=== PATIENT | male | born 1955 | race Caucasian/White ===

== ENCOUNTER → 2020-01-30 11:09 | Outpatient (BNVA) | payer MEDICARE, OTHER, SELFPAY | PROVIDERS: PCP Registered Nurse; Visit Provider Urology | DX: N40.1 Benign prostatic hyperplasia with lower urinary tract symptoms (principal); N13.8 Other obstructive and reflux uropathy; R39.14 Feeling of incomplete bladder emptying | CPT/HCPCS: 51798; 81002; 99212 ==

== ENCOUNTER → 2020-03-11 11:03 | Outpatient (BNVA) | payer MEDICARE, OTHER, SELFPAY | PROVIDERS: PCP Registered Nurse; Visit Provider Internal Medicine Cardiovascular Disease | DX: I48.0 Paroxysmal atrial fibrillation (principal) | CPT/HCPCS: 93005; 99212 ==

== ENCOUNTER 2020-06-03 12:39 | Outpatient (REF) | payer MEDICARE, OTHER, SELFPAY ==
--- NOTE | ~2020-06-03 | MR_ITS ---
MR CERVICAL SPINE WITHOUT CONTRAST CLINICAL INFORMATION: Right-sided cervical radiculopathy. COMPARISON: None available. TECHNIQUE: MRI of the cervical spine was obtained using routine sequences without contrast. FINDINGS: Cervical alignment is normal. The vertebral body heights are maintained. There is mild disc volume loss at C5-C6. There Modic type I endplate signal changes at C5-C6. There is no additional bone marrow edema. There are no acute fractures. The partially imaged intracranial compartment is unremarkable. The cervical arterial flow voids are maintained. There are no significant soft tissue findings. There is no cord signal abnormality. C2-C3: Disc osteophyte mildly narrows the central canal. Uncovertebral joint spurring and facet arthropathy result in severe right and moderate left foraminal stenosis. C3-C4: Disc osteophyte mildly narrows the central canal. Uncovertebral joint spurring and facet arthropathy result in mild bilateral foraminal encroachment. C4-C5: Disc osteophyte mildly narrows the central canal. Advanced uncovertebral joint hypertrophy and hypertrophic facet arthropathy result in severe right and moderate left foraminal stenosis. C5-C6: Disc osteophyte and ligamentum flavum thickening result in severe central canal stenosis and mass effect on the cord. No definite cord signal abnormality accounting for artifact. Advanced uncovertebral joint hypertrophy and hypertrophic facet arthropathy result in severe bilateral foraminal stenosis. C6-C7: Uncovertebral joint spurring and facet arthropathy result in mild right-sided foraminal encroachment. No central canal and no left foraminal stenosis. C7-T1: Disc contour is normal. No central canal stenosis. No foraminal stenosis. MR/MR cervical spine wo con IMPRESSION: - At C5-C6, advanced spondylitic changes result in severe central canal stenosis, mass effect on the cervical spinal cord, and severe bilateral foraminal stenosis. - Spondylitic changes also result in severe right and moderate left C2-C3 as well as severe right and moderate left C4-C5 foraminal stenosis. Additional degenerative findings as discussed above.
== END 2020-06-03 12:40 | disposition home or self-care (01) ==
LOC: HO.MRI 12:39
PROVIDERS: Visit Provider Internal Medicine
DX: M54.12 Radiculopathy, cervical region (principal)
CPT/HCPCS: 72141

== ENCOUNTER 2020-12-03 10:01 | Emergency (ER) | payer MEDICARE, OTHER, SELFPAY ==
--- NOTE | ~2020-12-03 | XR_ITS ---
EXAMINATION: XR KNEE, RIGHT CLINICAL INFORMATION: Pain right knee COMPARISON: None TECHNIQUE: 5 views of the right knee. FINDINGS: There is no fracture, dislocation, destructive process. Bony mineralization appears normal. There is no focal joint narrowing or erosive change or chondrocalcinosis. Spurring at the quadriceps insertion patella is present. There is borderline thickening suprapatellar bursa suggesting trace effusion. Hoffa's fat pad and the deep infrapatellar recess appears normal. XR/XR knee RT 3V IMPRESSION: 1. Trace effusion. No joint narrowing or erosive change. 2. Spurring at quadriceps insertion patella.
[2020-12-03 10:46] VITALS: PULSE 48; RESP 16; TEMP 36.2; O2SAT 99; BMI 25.8
[2020-12-03 10:57] VITALS: BP 135/78
--- NOTE | 2020-12-03 11:41 | ED.LOWEXIN ---
HPI - Extremity Injury (Lower) General Chief Complaint: Extremity Injury, Lower Stated Complaint: rt knee injury Time Seen by Provider: 12/03/20 11:41 Source: patient and family Mode of arrival: ambulatory Limitations: no limitations History of Present Illness HPI Narrative: 65-year-old male who is not on any blood thinners presenting to the ED with complaints of right knee pain after he had a mechanical fall where he tripped and fell while he was outside in the d last night. Denies head injury or loss of consciousness. Denies any other injuries complaints or concerns at this time. MD complaint: knee injury and fall Onset (ago): day(s) (Last night) Type of Injury: blunt Place: street/outdoors Severity: moderate Relieving factors: nothing Exacerbating factors: palpation and other (Or flexion) Context: fall Associated symptoms: swelling and ambulatory Other symptoms: none Treatments prior to arrival: other (Has tried [id number] medication no symptomatic relief) Related Data Home Medications Medication Instructions Recorded Confirmed atorvastatin 10 mg tablet 10 mg PO DAILY 01/30/20 03/11/20 bisacodyl 5 mg tablet,delayed 10 mg PO DIRECTED 01/30/20 03/11/20 release cholecalciferol (vitamin D3) 25 25 mcg PO DAILY 01/30/20 03/11/20 mcg (1,000 unit) capsule Previous Rx's Medication Instructions Recorded acetaminophen 500 mg tablet 500 mg PO Q6H PRN #14 tab 12/03/20 (Tylenol Extra Strength) ibuprofen 800 mg tablet 800 mg PO Q8H PRN #14 tab 12/03/20 oxycodone 5 mg tablet 5 mg PO Q6H PRN #14 tab 12/03/20 Allergies Allergy/AdvReac Type Severity Reaction Status Date / Time No Known Allergies Allergy Unverified 10/30/19 14:39 [No Known Allergies*] Review of Systems Review of Systems: Constitutional : No Weight loss, No Fever, No Chills, No Night Sweats, No Fatigue, No Malaise ENT/Mouth : No Hearing loss, No Ear Pain, No Nasal Congestion, No Sinus Pain, No Hoarseness, No sore throat, No Rhinorrhea, No Swallowing Difficulty Eyes: No Eye Pain, No Swelling, No Redness, No Foreign Body, No Discharge, No Vision Changes Cardiovascular : No Chest Pain, No SOB, No Dyspnea on Exertion, No Orthopnea, No Edema, No Palpitations Respiratory : No Cough, No Sputum, No Wheezing, No Smoke Exposure, No Dyspnea Gastrointestinal : No Nausea, No Vomiting, No Diarrhea, No Constipation, No abdominal Pain, No Hematochezia, No Melena Genitourinary : no irregular bleeding, No Dysuria, No Urinary Frequency, No Hematuria, No Urinary Incontinence, No Urgency, No Flank Pain, No Urinary Flow Changes, No Hesitancy Musculoskeletal : Positive right knee joint pain/swelling, Skin : No Skin Lesions, No rash Neuro : No Weakness, No Numbness, No Paresthesias, No Loss of Consciousness, No Dizziness, No Headache Psych : No Anxiety/Panic, No Depression, No SI/HI/AH/VH, No Social Issues, Heme/Lymph: No Bruising, No Bleeding,No Lymphadenopathy Endocrine : No Polyuria, No Polydipsia, No Temperature Intolerance Yes all other systems are reviewed and are negative [facility] Past Medical History Attestation statement: The following information was validated with the patient. Medical History Paroxysmal atrial fibrillation Surgical History History of hip surgery History of radiofrequency ablation (RFA) procedure for cardiac arrhythmia History of tonsillectomy and adenoidectomy Hx of hemorrhoidectomy Hx of hernia repair Hx of vasectomy Family History Family History Father Cancer Mother Cancer Social History Social History Advance Directives: No Advance Directives Information Provided: Yes Physical Exam Vital Signs: Vital Signs: Last Vital Signs Temp 97.2 F 12/03/20 10:46 Pulse 48 L 12/03/20 10:46 Resp 16 12/03/20 10:46 BP 135/78 12/03/20 10:57 Pulse Ox 99 12/03/20 10:46 Body Mass Index 25.8 vital signs have been reviewed as normal and appeared to be correct. Blood pressure normal Heart rate normal. Respiration rate normal. Temperature normal. Oxygen saturation normal. Appearance: Alert. Oriented X3. No acute distress. Head: Normal external exam. Normocephalic. Atraumatic. Eyes: PERRLA. EOMI. Conjunctiva and sclera normal. Eyelids normal. ENT: Pharynx normal. Uvula midline. Moist mucous membranes. Neck: Normal inspection. Neck supple. FROM. CVS: Normal heart rate and rhythm. Respiratory: No respiratory distress. Painless inspiration. Skin: Skin warm and dry. Normal skin color. Normal skin turgor. No rashes/lesions/lacerations noted. Extremities:? Patient mild soft tissue swelling to right knee and tenderness to the posterior aspect of the knee/lateral aspect and medial aspect.? No obvious ligamentous or tendon injury is noted on my exam.? Although patient has moderate pain when I perform flexion of the knee.? He has normal extension of the knee.? all other Extremities exhibit normal range of motion and nontender. Neuro: Oriented X 3. No motor deficit. No sensory deficit. Reflexes normal. Normal steady gait. No focal neuro deficits noted. Vascular: + radial pulses/+ 2 distal pedal pulses/+2 dorsalis pedis b/l. Normal cap refill. No cyanosis noted to upper extremity nails and lower extremity toes nails. Course Course Course Narrative: 65-year-old with a mechanical fall with left knee pain x-ray negative for fractures reveals small joint effusion and chronic changes. Therefore I explained to him that he will need to be further evaluated and treated with Orthopedics and he can call today to make a follow-up appointment within the next 2 weeks if symptoms persist and to return if any new or worsening symptoms. Patient understands agrees with this plan. MDM - Extremity Injury (Lower) Medical Records Attestation: I reviewed the patient's medical records. Imaging Data Right knee x-ray: Attestation: I personally reviewed and interpreted this imaging study as follows: Radiologist's impression: FINDINGS: There is no fracture, dislocation, destructive process. Bony mineralization appears normal. There is no focal joint narrowing or erosive change or chondrocalcinosis. Spurring at the quadriceps insertion patella is present. There is borderline thickening suprapatellar bursa suggesting trace effusion. Hoffa's fat pad and the deep infrapatellar recess appears normal.? XR/XR knee RT 3V IMPRESSION: ? 1. Trace effusion. No joint narrowing or erosive change. 2. Spurring at quadriceps insertion patella. Discharge Plan Discharge Clinical Impression: Fall, Right knee sprain, Effusion of knee joint right Patient Disposition: Home, Self-Care Instructions: Knee Sprain (ED), How to Use an Elastic Bandage (ED), Swollen Knee Joint (ED), Fall Prevention (ED) Prescriptions: New acetaminophen [Tylenol Extra Strength] 500 mg tablet 500 mg PO Q6H PRN (Reason: pain) Qty: 14 RF: 0 ibuprofen 800 mg tablet 800 mg PO Q8H PRN (Reason: pain) Qty: 14 RF: 0 oxycodone 5 mg tablet 5 mg PO Q6H PRN (Reason: pain) Qty: 14 RF: 0 No Action atorvastatin 10 mg tablet 10 mg PO DAILY RF: 0 bisacodyl 5 mg tablet,delayed release (DR/EC) 10 mg PO DIRECTED RF: 0 cholecalciferol (vitamin D3) 25 mcg (1,000 unit) capsule 25 mcg PO DAILY RF: 0 Referrals: Danya Sorto NP [Primary Care Provider] - 2 days Antony Parsons MD [Physician] - 2 days (Call today to make a follow-up appointment within the next 2 weeks) Print Language: Estonian
== END 2020-12-03 11:56 | disposition home or self-care (01) ==
PROVIDERS: Emergency Provider Emergency Medicine; PCP Registered Nurse
DX: S83.91XA Sprain of unspecified site of right knee, initial encounter (principal); M25.461 Effusion, right knee; W01.0XXA Fall on same level from slipping, tripping and stumbling without subsequent striking against object, initial encounter; Y93.9 Activity, unspecified; Y92.9 Unspecified place or not applicable; Y99.9 Unspecified external cause status; Z79.899 Other long term (current) drug therapy
CPT/HCPCS: 73562; 99283

== ENCOUNTER 2021-01-25 10:48 | Outpatient (REF) | payer MEDICARE, OTHER, SELFPAY ==
[2021-01-25 12:59] LABS: Prostate Specific Antigen 0.72 ng/mL (<0.05-4.0)
== END 2021-01-25 10:49 | disposition home or self-care (01) ==
LOC: HO.LAB 10:48
PROVIDERS: PCP Registered Nurse; Visit Provider Urology
DX: Z12.5 Encounter for screening for malignant neoplasm of prostate (principal); N40.1 Benign prostatic hyperplasia with lower urinary tract symptoms; N13.8 Other obstructive and reflux uropathy
CPT/HCPCS: 36415; 84153

== ENCOUNTER → 2021-02-01 10:33 | Outpatient (BNVA) | payer MEDICARE, OTHER, SELFPAY | PROVIDERS: PCP Registered Nurse; Visit Provider Urology | DX: N40.1 Benign prostatic hyperplasia with lower urinary tract symptoms (principal); N13.8 Other obstructive and reflux uropathy | CPT/HCPCS: Q3014 ==

== ENCOUNTER → 2021-02-18 12:44 | Outpatient (REF) | payer MEDICARE, SELFPAY ==
--- NOTE | 2021-02-18 12:47 | CA_ITS ---
Transthoracic Echocardiogram Patient (Last, First, Middle): Kristopher Basurto G Gender: Male Date of : 1955 Age: 65 Procedure Date: 02/18/2021 Procedure Type: Transthoracic Echocardiogram Location: OP Height: 177.8 cm Weight: 79.38 kg BSA: 1.97 m2 Heart Rate: bpm BP: 130 / 78 mmHg Entomology Teacher: SANTOS Referring MD: Robson Boston MD Panel Edge Sealer: Robson Boston MD Symptoms: I48.0 - Paroxysmal atrial fibrillation Study Quality: Fair ECG Rhythm: Sinus Conclusions: - 1. Normal LV systolic and diastolic function 2. Mildly dilated left atrium 3. Normal RV systolic pressure 4. Mildly dilated ascending aorta 5. No pericardial effusion Findings Left Ventricle Normal left ventricular size, thickness, and systolic function. The visually estimated ejection fraction is between 60-65%. Spectral Doppler is indicative of a normal filling pattern. Right Ventricle Normal right ventricular cavity size and systolic function. Atria The left atrium is mildly dilated. There is no evidence of interatrial shunt. The right atrium is normal in size. Aortic Valve Normal aortic valve structure and function. There is no aortic valve stenosis. There is no aortic valve regurgitation. Mitral Valve Normal mitral valve structure and function. There is trace mitral valve regurgitation. There is no mitral valve stenosis. Pulmonic Valve The pulmonic valve is likely normal. Tricuspid Valve Normal tricuspid valve structure. There is mild tricuspid valve regurgitation. The right ventricular systolic pressure is normal. The right ventricular systolic pressure is 28 mmHg. Normal right atrial pressure. There is no evidence of pulmonary hypertension. Great Vessels The pulmonary artery was not well visualized. There is mild dilatation of the ascending aorta measuring 3.80 cm. Venous The inferior vena cava is normal in size and collapses greater than 50% with inspiration. Pericardium/Pleural There is no evidence of pericardial effusion. Prior Study Comparison Changes noted compared to prior study dated: 12/26/2018. Ascending aorta is mildly dilated at 3.8 cm Measurements 2D Linear Measurements IVSd: 1.02 0.6-0.9/0.6-1.0 cm LVIDd: 4.29 3.9-5.3/4.2-5.9 cm LVIDd Index: 2.18 2.4-3.2/2.2-3.1 cm/m2 LVIDs: 2.32 2.0-3.6 cm LVPWd: 1.05 0.7-1.1 cm Ao Root: 4.00 2.1-3.5 cm LA Diam: 3.90 2.7-3.8/3.0-4.0 cm LAIDs Index: 1.98 1.5-2.3 cm/m2 LV Mass: 185.44 67-162/88-224 g LV Mass Index: 94.13 43-95/49-115 g/m2 LVOT Diam: 2.20 3.0+(-)1.3 cm 2D Systolic Function EF 4C: 66.30 >55% EF 2C: 69.20 >55% EF BiP: 68.00 >55% Mitral Valve MV Pk E: 0.71 MV PK A: 0.43 MV Decel Time: 276.00 E/A: 1.70 E'Lateral: 11.30 E'Medial: 8.81 E/E' Med: 8.10 E/E' Lat: 6.30 PHT: 81.00 MVA PHT: 2.72 Decel Imperial: 2.57 Aortic Valve AoV Pk Hossein: 1.21 AoV Mn Hossein: 0.93 AoV VTI: 0.28 AoV Pk Grad: 6.00 Aov Mn Grad: 4.00 CAROLINA Cont.VTI: 2.78 LVOT LVOT Pk Hossein: 0.94 LVOT Mn Hossein: 0.67 LVOT VTI: 0.20 LVOT Pk Grad: 4.00 LVOT Mn Grad: 2.00 LVOT Diam: 2.20 LVOT Area: 3.80 Diastolic Function MV Pk E: 0.71 MV Pk A: 0.43 E/A: 1.70 E'Medial: 8.81 E/E' Med: 8.10 E' Laterial: 11.30 E/E' Lat: 6.30 Right Ventricle TAPSE (mm): 23.20 TVS' Hossein: 15.70 Tricuspid Valve TR Pk Hossein: 2.50 TR Pk Grad: 25.00 RA Press: 3.00 RVSP: 28.00 Great Vessels Aorta Ao Root-2D: 4.00 2.0-3.7 cm Ao Asc: 3.80 2.1-3.4 cm Ao Arch: 3.00 Updated in Other Vendor System with Status of Final Robson Boston MD electronically signed on 02/18/2021 2:40:12 PM with status of Final
== END ==
LOC: HO.CARD 12:44
PROVIDERS: Visit Provider Internal Medicine Cardiovascular Disease
DX: I48.0 Paroxysmal atrial fibrillation (principal)
CPT/HCPCS: 93306

== ENCOUNTER → 2021-02-28 13:49 | Outpatient (BNVA) | payer MEDICARE, SELFPAY | PROVIDERS: PCP Registered Nurse; Visit Provider Internal Medicine Cardiovascular Disease | DX: I48.0 Paroxysmal atrial fibrillation (principal) | CPT/HCPCS: 93005; 99212 ==

== ENCOUNTER → 2022-03-02 12:50 | Outpatient (BNVA) | payer MEDICARE, SELFPAY | PROVIDERS: PCP Registered Nurse; Referring Provider Registered Nurse; Visit Provider Internal Medicine Cardiovascular Disease | DX: I48.0 Paroxysmal atrial fibrillation (principal); R00.1 Bradycardia, unspecified; I44.0 Atrioventricular block, first degree; I44.4 Left anterior fascicular block | CPT/HCPCS: 93005; 99212 ==

== ENCOUNTER → 2022-03-09 13:25 | Outpatient (BNVA) | payer OTHER, SELFPAY | PROVIDERS: PCP Registered Nurse; Visit Provider Urology | DX: N40.1 Benign prostatic hyperplasia with lower urinary tract symptoms (principal); N13.8 Other obstructive and reflux uropathy | CPT/HCPCS: 51798; 99212 ==

== ENCOUNTER → 2023-02-26 08:40 | Outpatient (REF) | payer MEDICARE, SELFPAY ==
--- NOTE | 2023-02-26 08:42 | CA_ITS ---
Transthoracic Echocardiogram Patient (Last, First, Middle): Kristopher Basurto G Gender: Male Date of : 1955 Age: 67 Procedure Date: 02/26/2023 Procedure Type: Transthoracic Echocardiogram Location: OP Height: 175.26 cm Weight: 79.38 kg BSA: 1.95 m2 Heart Rate: 53 bpm BP: 130 / 70 mmHg Lead Mechanical Engineer: JOVANNI Referring MD: Robson Boston MD Symptoms: I48.0 - Paroxysmal atrial fibrillation Study Quality: Adequate ECG Rhythm: Bradycardia Conclusions: - The left ventricular systolic function is normal. The calculated ejection fraction is 60% by biplane method. - Severely increased right ventricular cavity size. There is normal right ventricular systolic function. (RV basal diameter 5.7cm). - The right atrium is severely dilated. - No obvious valvular pathology seen on this study. - There is mild dilatation of the sinuses of Valsalva measuring 4.20 cm and mild dilatation of the ascending aorta measuring 3.80 cm. Findings Left Ventricle Normal left ventricular cavity size. There is mildly increased left ventricular wall thickness. The left ventricular systolic function is normal. The calculated ejection fraction is 60% by biplane method. There is no evidence of regional wall motion abnormalities. Diastolic function is normal for age. LV peak GLS -21.1%. Right Ventricle Severely increased right ventricular cavity size. There is normal right ventricular systolic function. (RV basal diameter 5.7cm). Atria The left atrium is mildly dilated. The right atrium is severely dilated. Aortic Valve There is a normal trileaflet aortic valve. There is mild calcification of the aortic valve. There is no aortic valve stenosis. There is no aortic valve regurgitation. Mitral Valve The mitral valve appears normal. There is trace mitral valve regurgitation. There is no mitral valve stenosis. Pulmonic Valve The pulmonic valve is likely normal. Tricuspid Valve There is mild tricuspid valve regurgitation. There is no evidence of pulmonary hypertension. Great Vessels There is mild dilatation of the sinuses of Valsalva measuring 4.20 cm and mild dilatation of the ascending aorta measuring 3.80 cm. Venous The inferior vena cava is normal in size and collapses greater than 50% with inspiration. Pericardium/Pleural There is no evidence of pericardial effusion. Prior Study Comparison Changes noted compared to prior study dated: 02/18/2021. see comments on RV/RA. Recommendations, Care & Conclusions No obvious valvular pathology seen on this study. Measurements 2D Linear Measurements IVSd: 1.01 0.6-0.9/0.6-1.0 cm LVIDd: 3.68 3.9-5.3/4.2-5.9 cm LVIDd Index: 1.89 2.4-3.2/2.2-3.1 cm/m2 LVIDs: 2.09 2.0-3.6 cm LVPWd: 1.12 0.7-1.1 cm LA Diam: 3.50 2.7-3.8/3.0-4.0 cm LAIDs Index: 1.79 1.5-2.3 cm/m2 LV Mass: 152.14 67-162/88-224 g LV Mass Index: 78.02 43-95/49-115 g/m2 LVOT Diam: 2.00 3.0+(-)1.3 cm 2D Systolic Function EF 4C: 61.50 >55% EF 2C: 57.40 >55% EF BiP: 59.70 >55% Mitral Valve MV Pk E: 0.62 MV PK A: 0.45 MV Decel Time: 235.00 E/A: 1.40 E'Lateral: 10.20 E'Medial: 7.83 E/E' Med: 7.90 E/E' Lat: 6.00 PHT: 69.00 MVA PHT: 3.19 Decel Anderson: 2.63 Aortic Valve AoV Pk Hossein: 1.19 AoV Mn Hossein: 0.84 AoV VTI: 0.27 AoV Pk Grad: 6.00 Aov Mn Grad: 3.00 CAROLINA Cont.VTI: 2.60 LVOT LVOT Pk Hossein: 1.04 LVOT Mn Hossein: 0.67 LVOT VTI: 0.22 LVOT Pk Grad: 4.00 LVOT Mn Grad: 2.00 LVOT Diam: 2.00 LVOT Area: 3.14 Diastolic Function MV Pk E: 0.62 MV Pk A: 0.45 E/A: 1.40 E'Medial: 7.83 E/E' Med: 7.90 E' Laterial: 10.20 E/E' Lat: 6.00 Right Ventricle TAPSE (mm): 25.80 TVS' Hossein: 12.30 Tricuspid Valve TR Pk Hossein: 2.32 TR Pk Grad: 22.00 RA Press: 3.00 RVSP: 25.00 Great Vessels Aorta Sinus of Valsalva: 4.20 2.0-3.5 cm Ao Asc: 3.80 2.1-3.4 cm Pulmonary Valve PV Pk Hossein: 0.77 Peak PV Grad: 2.00 Updated in Other Vendor System with Status of Final Peng Aviles MD electronically signed on 02/26/2023 10:16:57 AM with status of Final
== END ==
LOC: HO.CARD 08:40
PROVIDERS: PCP Internal Medicine; Visit Provider Internal Medicine Cardiovascular Disease
DX: I48.0 Paroxysmal atrial fibrillation (principal)
CPT/HCPCS: 93306; 93356

== ENCOUNTER → 2023-02-26 08:42 | Outpatient (BNV) | payer MEDICARE, SELFPAY | PROVIDERS: PCP Internal Medicine; Visit Provider Internal Medicine | DX: I48.0 Paroxysmal atrial fibrillation (principal); I36.1 Nonrheumatic tricuspid (valve) insufficiency | CPT/HCPCS: 93306 ==

== ENCOUNTER 2023-03-05 09:23 | Outpatient (AMB) | payer MEDICARE, SELFPAY ==
--- NOTE | 2023-03-05 09:27 | A.OFFVIS_ITS ---
Intake Vital Signs 03/05/23 09:28 Height 5 ft 9 in Weight 174 lb 2.643 oz BMI 25.7 BP 130/70 Blood Pressure Location Lt brachial Position Sitting Pulse 58 Intake Visit Reasons: 1 yr f/u after echo Intake Note: 1 yr f/up after echo/ pt its feeling fine. Family Literacy Coordinator Required: No Accompanied by: Self / Same As Patient Allergies No Known Allergies [No Known Allergies*] Allergy (Verified 02/01/21 10:34) Medication List - Last Reconciled 03/05/23 by Robson Boston MD atorvastatin 10 mg PO DAILY cholecalciferol (vitamin D3) 25 mcg PO DAILY HPI HPI Comments History of Present Illness Details Kristopher comes for follow-up. He has had no recurrent episodes of atrial fibrillation. Denies any prolonged palpitation irregular heartbeat or skipped heartbeats. He complains of intermittent episodes of precordial chest tightness that happens mostly at rest lasting for about 5 minutes. Symptoms are not related to exertion or if finds not much stress. Symptoms have happening about once a week. Have happening for the last few months. No neurologic issues. No heart failure symptoms. [facility] Medical History Paroxysmal atrial fibrillation Surgical History Hx of vasectomy Hx of hernia repair History of radiofrequency ablation (RFA) procedure for cardiac arrhythmia Hx of hemorrhoidectomy History of tonsillectomy and adenoidectomy History of hip surgery Family History Father Cancer Mother Cancer Social History Alcohol intake: current Alcohol intake frequency: 0-2 drinks per day Patient Tobacco Use Status: Never used Tobacco Substance Use Type: Marijuana Review of Systems Const Reports chills, Reports fatigue, Reports fever(s), Reports frequent falls, Reports weakness, Reports weight gain and Reports weight loss ENT Reports dizziness Card Reports chest pain, Reports leg edema, Reports lightheadedness, Reports palpitations, Reports dyspnea and Reports dyspnea on exertion Resp Reports cough, Reports dyspnea and Reports dyspnea on exertion GI Reports hematochezia Musc Reports abnormal gait, Reports muscle weakness, Reports numbness, Reports radiating pain into limb and Reports tingling Neuro Reports abnormal gait, Reports dizziness, Reports frequent falls, Reports numbness, Reports tingling and Reports weakness Endo Reports fatigue and Reports palpitations Physical Exam Vital Signs: Last Vital Signs Pulse 58 03/05/23 09:28 BP 130/70 03/05/23 09:28 BMI result Body Mass Index 25.7 Const General: cooperative, comfortable, awake and Physically active Nutritional Appearance: thin Orientation/consciousness: patient oriented x3 Limitations: no limitations Neck Neck: Yes trachea midline, Yes supple and Yes no JVD Resp Effort & Inspection: normal respiratory effort Auscultation: clear to auscultation bilaterally Cardio Jugular venous distension: no JVD Palpation: normal PMI Rate: regular rate Rhythm: regular rhythm Heart sounds: S1 normal heart sound present and S2 normal heart sound present GI Auscultation: normal bowel sounds Skin General skin exam: no rashes or lesions noted Neuro General: patient oriented x3 and no focal motor deficits Extrem General: Yes no clubbing, cyanosis or edema Psych Appearance: grossly normal Office Procedures EKG Details: EKG shows sinus bradycardia with first-degree AV block otherwise normal EKG [id number], Complete Assessment & Plan Assessment & Plan (1) Paroxysmal atrial fibrillation: Code(s): I48.0 - Paroxysmal atrial fibrillation Plan: Highly symptomatic paroxysmal atrial fibrillation which has remained suppressed after ablation and off all antiarrhythmic drug therapy. Has done well with rhythm control approach will continue pursue rhythm control approach. No indication for any further pharmacotherapy. Continue stress mitigation strategies. Avoidance of stimulants was discussed. Discussed the risk of stroke given CHADSVASc score of 1. He will prefer to continue to defer oral anticoagulation therapy at this point time. (2) Atypical chest pain: Code(s): R07.89 - Other chest pain Plan: Atypical precordial chest pain with multiple risk factors. Will pursue regular treadmill stress test in near future to assess for the same. Target goal LDL less than 100 mg/dL. Can consider coronary calcium score the stress test is negative. If stress test is negative pursue other causes of chest pain. Follow up in the clinic in 1 year's time, sooner p.r.n.. Thank you for allowing me to partake in his care Coding Level of Care Code Est Pt Level 4 (63020) Diagnoses Paroxysmal atrial fibrillation I48.0 Atypical chest pain R07.89 CPT Codes EKG - CPT: 87258-[id number], Complete ([id number])
[2023-03-05 09:28] VITALS: BP 130/70; PULSE 58; BMI 25.7
== END 2023-03-05 09:49 | disposition home or self-care (01) ==
PROVIDERS: Visit Provider Internal Medicine Cardiovascular Disease
DX: I48.0 Paroxysmal atrial fibrillation (principal); R07.89 Other chest pain
CPT/HCPCS: 93010; 99214

== ENCOUNTER → 2023-03-05 09:23 | Outpatient (BNVA) | payer MEDICARE, SELFPAY | PROVIDERS: Visit Provider Internal Medicine Cardiovascular Disease | DX: I48.0 Paroxysmal atrial fibrillation (principal); R07.89 Other chest pain | CPT/HCPCS: 93005; 99212 ==

== ENCOUNTER 2023-03-09 14:36 | Outpatient (AMB) | payer MEDICARE, SELFPAY ==
--- NOTE | 2023-03-09 14:51 | A.OFFVIS_ITS ---
Intake Intake Visit Reasons: 1Y PVR Intake Note: Patient is Present for Follow Up Urology Medication: None Antibiotic Allergies: None Blood Thinners: None PVR: 0 Allergies No Known Allergies [No Known Allergies*] Allergy (Verified 02/01/21 10:34) HPI HPI Comments History of Present Illness Details Kristopher is a pleasant male. He is a patient of Dr. Sorto. He seen for the following urologic conditions - lower urinary tract symptoms PVR 0 cc Effective bladder emptying Has been 5 years of follow-up Minimal PVR Low PSA May follow with primary care Feeling Has scratchy throat May have oral thrush Itraconazole solution provided Following up with 1st visit to PCP next month Lower Urinary Tract Symptoms: Prostate procedure June 2018 Current visit is for further evaluation of, lower urinary tract symptoms, predominate obstructive symptoms. Current treatment includes no medication Prior treatments include 06/30 , procedure, laser procedure, hospital PSA 06/29 PSA 0.66 01/30 PSA 0.5, 02/01 0.7 Treatment plan check PSA in 12 months PFS Medical History Paroxysmal atrial fibrillation Surgical History Hx of vasectomy Hx of hernia repair History of radiofrequency ablation (RFA) procedure for cardiac arrhythmia Hx of hemorrhoidectomy History of tonsillectomy and adenoidectomy History of hip surgery Family History Father Cancer Mother Cancer Social History Alcohol intake: current Alcohol intake frequency: 0-2 drinks per day Patient Tobacco Use Status: Never used Tobacco Substance Use Type: Marijuana Review of Systems Const Denies chills and Denies fever(s) Card Reports no additional complaints and Denies syncope Resp Denies cough GI Denies abdominal pain and Denies heartburn Reports as per HPI and Denies change in libido Neuro Denies syncope Psych Denies change in libido Endo Denies change in libido Physical Exam Const General: cooperative, healthy appearing, comfortable and no acute distress Orientation/consciousness: patient oriented x3 HEENT Face and sinus: Yes normal facial exam Mouth: moist mucous membranes Neck Neck: Yes normal visual inspection, Yes full ROM and Yes trachea midline Chest Chest palpation & inspection: normal inspection of the chest Resp Effort & Inspection: normal respiratory effort, able to speak in complete sentences and no respiratory distress GI Inspection: Yes normal to inspection Back/Spine/Pelvis Cervical Spine: normal cervical lordosis Thoracic/Lumbar Spine: thoracic and lumbar spine normal to inspection Skin General skin exam: no rashes or lesions noted Neuro General: patient oriented x3, gait normal, tone normal and moves all extremities Extrem General: Yes normal to inspection and Yes capillary refill normal Office Procedures Post Void Residual Post Residual Void Post Void Residual (PVR): 0 08135-Ogcm Void Residual by ultrasound Assessment & Plan Assessment & Plan (1) Oral thrush: Code(s): B37.0 - Candidal stomatitis (2) Feeling of incomplete bladder emptying: Code(s): R39.14 - Feeling of incomplete bladder emptying (3) BPH w urinary obs/LUTS: Code(s): N40.1 - Benign prostatic hyperplasia with lower urinary tract symptoms; N13.8 - Other obstructive and reflux uropathy Plan P.r.n. follow-up Orders: Orders AMB Post Void Residual by ultrasound Today R39.14 - Feeling of incomplete bladder emptying Medications: New itraconazole administer on an empty stomach 200 mg (20 mL) PO DAILY 140 mL 0RF 7 days B37.0 - Candidal stomatitis Patient Instructions: Imaging studies, laboratory and physical exam results were discussed and reviewed in detail. No major barriers to patient understanding were identified. An opportunity to ask questions regarding the treatment plan was provided. All questions were answered. The patient expressed understanding and agreement with the above treatment plan. The patient is aware they should contact our office by phone for worsening of their current condition or the appearance of new urologic symptoms. Compliance is encouraged with any medications and followup testing that is ordered. It is a privilege to participate in the urologic care of your patient. If you have any questions or concerns regarding treatment for the above conditions, or other urologic issues, please do not hesitate to contact me. The office telephone contact is [phone]. This note is constructed using voice recognition software. 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 Yours sincerely, Dr Harshad Medrano MD, [facility] - Urology Providers of Expert, Compassionate Care for the Genitourinary System Coding Level of Care Code Est Pt Level 4 (65029) Diagnoses Oral thrush B37.0 Feeling of incomplete bladder emptying R39.14 BPH w urinary obs/LUTS N40.1; N13.8 CPT Codes Post Residual Void - PVR CPT Code: 08415-Jodb Void Residual by ultrasound ([id number])
== END 2023-03-09 15:05 | disposition home or self-care (01) ==
PROVIDERS: Visit Provider Urology
DX: N40.1 Benign prostatic hyperplasia with lower urinary tract symptoms (principal); B37.0 Candidal stomatitis; R39.14 Feeling of incomplete bladder emptying; N13.8 Other obstructive and reflux uropathy
CPT/HCPCS: 99214

== ENCOUNTER → 2023-03-09 14:36 | Outpatient (BNVA) | payer MEDICARE, SELFPAY | PROVIDERS: Visit Provider Urology | DX: N40.1 Benign prostatic hyperplasia with lower urinary tract symptoms (principal); N13.8 Other obstructive and reflux uropathy; R39.14 Feeling of incomplete bladder emptying; B37.0 Candidal stomatitis | CPT/HCPCS: 51798; 99212 ==

== ENCOUNTER → 2023-03-20 08:26 | Outpatient (REF) | payer MEDICARE, SELFPAY ==
--- NOTE | 2023-03-20 08:28 | CA_ITS ---
Acquisition Time: 2023-03-20 08:41:33 Total Exercise Time: 00:06:31 Test Indications: AFIB Medications: SEE H Protocol: AUBREY Max HR: 134 BPM 88% of Pred: 151 BPM Max BP: 184/074 mmHG Max Work Load: 7.7 METS Exercise stress test exercuse 6 min 31 sec of Aubrey protocol achieving 88% MPHR, with mild SOB, no chest discomforts, with isolated PVCs and PACs, with normotensive response to exercise, without EKG changes., Test reviewed with Dr. Aviles. Referred By: Robson Boston Overread By: Cori Tracy
== END ==
LOC: HO.CARD 08:26
PROVIDERS: PCP Internal Medicine; Visit Provider Internal Medicine Cardiovascular Disease
DX: I48.0 Paroxysmal atrial fibrillation (principal)
CPT/HCPCS: 93017

== ENCOUNTER → 2023-03-20 08:28 | Outpatient (BNV) | payer MEDICARE, SELFPAY | PROVIDERS: PCP Internal Medicine; Visit Provider Nurse Practitioner | DX: I48.0 Paroxysmal atrial fibrillation (principal); R06.02 Shortness of breath | CPT/HCPCS: 93016; 93018 ==

== ENCOUNTER 2023-04-05 13:03 | Outpatient (AMB) | payer OTHER, SELFPAY ==
[2023-04-05 13:09] VITALS: BP 122/68; PULSE 52; O2SAT 96; BMI 26.3
--- NOTE | 2023-04-05 13:09 | MHC.PC.OV ---
Vital Signs 04/05/23 13:09 Height 5 ft 9 in Weight 178 lb BMI 26.3 BP 122/68 Blood Pressure Location Lt brachial Position Sitting Pulse 52 Pulse Source Pulse Oximeter Pulse Oximetry (%) 96 Oxygen Delivery Method Room Air Intake Visit Reasons: BUSINESS OFFICE DIRECTOR- Establish Care Intake Note: Patient is a new patient here to establish care Bioinformatics Team Member Required: No Allergies No Known Allergies [No Known Allergies*] Allergy (Verified 04/05/23 13:09) Medication List - Last Reconciled 04/05/23 by Tal Cuellar MD atorvastatin 10 mg PO DAILY cholecalciferol (vitamin D3) 25 mcg PO DAILY Tobacco use date assessed: 04/05/23 Fall risk assessment: No Falls in past year Last assessed Fall Risk: 04/05/23 Dental Screening Dental Screen Date: 04/05/23 Did you have a dental visit in the last 12 months?: Yes Did you have a dental problem in the last 6 months where you did not have access to dental care?: No Was dental information given to patient?: Patient has dentist HPI BUSINESS OFFICE DIRECTOR- Establish Care HPI Details 67-year-old male with hypercholesterolemia atrial fibrillation and BPH. 1st time being seen and review of the notes has been follow-up with cardiology had some chest pain and stress test done negative results patient also follows up with urology stable.. sorew throat, coughing, occ congested, no sob, concern about the throat pain, patient also concerned about the history of smoking but he is 20 years out from last cigarettes and discussed about categories for lung cancer screening. PFSH Medical History (Updated 04/05/23 @ 14:33 by Tal Cuellar MD) Oral thrush Feeling of incomplete bladder emptying Paroxysmal atrial fibrillation Surgical History (Updated 04/05/23 @ 14:18 by Tal Cuellar MD) H/O neck surgery Hx of vasectomy Hx of hernia repair History of radiofrequency ablation (RFA) procedure for cardiac arrhythmia Hx of hemorrhoidectomy History of tonsillectomy and adenoidectomy Family History (Updated 04/05/23 @ 14:20 by Tal Cuellar MD) Father Cancer Lung cancer Mother Cancer Lung cancer Paternal Uncle Lung cancer Paternal Aunt Lung cancer Maternal Grandfather Rectal cancer Social History (Updated 04/05/23 @ 14:24 by Tal Cuellar MD) Alcohol intake: current Alcohol intake frequency: 0-2 drinks per day Comment: 3-4 x a week 4-5 beer Patient Tobacco Use Status: Never used Tobacco Years Smoked: quit 1999 14 years old start 2-3 pack aday Substance Use Type: Marijuana service: No Cognitive needs: No Hearing needs: No Vision needs: No Questionnaire PHQ-9 Over the last 2 weeks, how often have you been bothered by any of the following problems? 1. Little interest or pleasure in doing things: not at all 2. Feeling down, depressed, or hopeless: not at all 3. Trouble falling or staying asleep, or sleeping too much: not at all 4. Feeling tired or having little energy: not at all 5. Poor appetite or overeating: not at all 6. Feeling bad about yourself - or that you are a failure or have let yourself or your family down: not at all 7. Trouble concentrating on things, such as reading the newspaper or watching television: not at all 8. Moving or speaking so slowly that other people could have noticed. Or the opposite - being so fidgety or restless that you have been moving around a lot more than usual: not at all 9. Thoughts that you would be better off or of hurting yourself in some way: not at all Total score: 0 Depression Screening Interpretation: Negative Depression Screening Done: Yes Source: Developed by Drs. Sukhdev Jama, Yolie Hopson, Rafy Dc and colleagues, with an educational mario from [employer]. Thrive Questionnaire Date Thrive assessed: 04/05/23 I am a: Patient What is your living situation today?: I have a steady place to live Within the past 12 months, did the food you bought not last and you didn't have the money to get more?: Never true Within the past 12 months, did you worry whether your food would run out before you got money to buy more?: Never true Do you have trouble paying for medicines?: No Do you have trouble getting transportation to medical appointments?: No Do you have trouble paying your heating and electricity bill?: No Do you have trouble taking care of your child, family member or friend?: No Do you have trouble with day-to-day activities such as bathing, preparing meals, shopping, managing finances, etc.?: No Are you currently unemployed and looking for a job?: No Are you interested in more education?: No Please select the resources that you would like help with: None THRIVE Score: 0 AUDIT C Alcohol Use Questionnaire (AUDIT-C) 1. How often do you have a drink containing alcohol?: 4 or more times a week (beer ) 2. How many drinks containing alcohol do you have on a typical day when you are drinking?: 3 or 4 3. How often do you have six or more drinks on one occasion?: Never Total Score: 5 SRIRAM-7 AMB Questionnaire SRIRAM-7 Date SRIRAM - 7 assessed: 04/05/23 Feeling nervous, anxious, or on edge: 0 = Not at all Not being able to stop or control worryin = Not at all Worrying too much about different things: 0 = Not at all Trouble relaxin = Not at all Being so restless that it is hard to sit still: 0 = Not at all Becoming easily annoyed or irritable: 0 = Not at all Feeling afraid as if something awful might happen: 0 = Not at all Total SRIRAM-7 score (0-4 normal; 5-9 mild; 10-14 moderate; 15-21 severe): 0 Source: Developed by Drs. Sukhdev Jama, Yolie Hopson, Rafy Dc and colleagues, with an educational mario from [employer]. Physical exam (Primary Care) Vital Signs: Last Vital Signs Pulse 52 04/05/23 13:09 BP 122/68 04/05/23 13:09 Pulse Ox 96 04/05/23 13:09 Oxygen Delivery Method Room Air 04/05/23 13:09 BMI result Body Mass Index 26.3 Tobacco/Smoking Status: Tobacco use Status Tobacco use date assessed 04/05/23 04/05/23 13:11 Patient Tobacco Use Status Never used Tobacco 04/05/23 14:24 PHQ-9: PHQ-9 Score PHQ-9: Total score 0 04/05/23 14:11 Depression Screening Interpretation: Negative Thrive Assessment: Date of Thrive Assessment Date Thrive assessed 04/05/23 04/05/23 13:11 Const General: alert; No acute distress Eyes Conjunctivae: conjunctivae normal Resp Auscultation: clear to auscultation bilaterally Cardio Rate: regular rate Rhythm: regular rhythm GI Inspection: Yes normal to inspection Extrem General: Yes normal to inspection and No edema Assessment and Plan Assessment & Plan (1) Hypercholesterolemia: Code(s): E78.00 - Pure hypercholesterolemia, unspecified Plan: Avoid fried foods, chicken skin, eggs, butter margarine, pastries and meat. Be it pork or beef they have a lot of cholesterol LDL goal of less than 130 and triglyceride of less than 150. (2) Paroxysmal atrial fibrillation: Comment: Cardioversion Dr. Boston 1999 Code(s): I48.0 - Paroxysmal atrial fibrillation Plan: Patient has seen Cardiology chads Vasc score 1 (3) BPH w urinary obs/LUTS: Code(s): N40.1 - Benign prostatic hyperplasia with lower urinary tract symptoms; N13.8 - Other obstructive and reflux uropathy Plan: Stable (4) Family history of lung cancer: Code(s): Z80.1 - Family history of malignant neoplasm of trachea, bronchus and lung (5) Throat irritation: Code(s): J39.2 - Other diseases of pharynx Plan: advised to take allergy med for 2 week . Orders: Orders Comprehensive Met. Panel Today E78.00 - Pure hypercholesterolemia, unspecified Free T4 (Free Thyroxine) Today E78.00 - Pure hypercholesterolemia, unspecified Thyroid Stimulating Hormone Today E78.00 - Pure hypercholesterolemia, unspecified Vitamin B12 and Folate Today E78.00 - Pure hypercholesterolemia, unspecified Complete Blood Count Auto Diff Today E78.00 - Pure hypercholesterolemia, unspecified Lipid Panel Today E78.00 - Pure hypercholesterolemia, unspecified Prostate Specific Antigen Scr Today E78.00 - Pure hypercholesterolemia, unspecified Referrals Pulmonary Medicine Referral Z80.1 - Family history of malignant neoplasm of trachea, bronchus and lung Ear/Nose/Throat Referral J39.2 - Other diseases of pharynx Coding Level of Care Code New Pt Level 4 (74074) Diagnoses Hypercholesterolemia E78.00 Paroxysmal atrial fibrillation I48.0 BPH w urinary obs/LUTS N40.1; N13.8 Family history of lung cancer Z80.1 Throat irritation J39.2
== END 2023-04-05 14:41 | disposition home or self-care (01) ==
PROVIDERS: PCP Registered Nurse; Visit Provider Internal Medicine
DX: E78.00 Pure hypercholesterolemia, unspecified (principal); I48.0 Paroxysmal atrial fibrillation; N40.1 Benign prostatic hyperplasia with lower urinary tract symptoms; N13.8 Other obstructive and reflux uropathy; Z80.1 Family history of malignant neoplasm of trachea, bronchus and lung; J39.2 Other diseases of pharynx
CPT/HCPCS: 99204

== ENCOUNTER 2023-04-06 08:16 | Outpatient (REF) | payer MEDICARE, SELFPAY ==
[2023-04-06 08:34] LABS: MANUAL DIFF FLAG NO
[2023-04-06 08:52] LABS: Basophils Absolute Auto 0.1 X10*3/uL (0.0-0.2); Basophils Percent Auto 0.8 % (0-2); Eosinophils Absolute Auto 0.1 X10*3/uL (0.0-0.4); Eosinophils Percent Auto 2.1 % (0-4); Hemoglobin 15.9 g/dl (14.0-18.0); Imm Gran Abs Auto 0.03 X10*3/uL (0.00-0.03); Imm Gran Pct Auto 0.5 % (0.0-0.4); Lymphocytes Absolute Auto 1.3 X10*3/uL (1.2-4.9); Lymphocytes Percent Auto 21.5 % (20-40); Mean Corpuscular HGB Conc 34.6 g/dl (31.0-36.0); Mean Corpuscular Hemoglobin 32.3 pg (27.0-33.0); Mean Corpuscular Volume 93.5 fL (80.0-98.0); Mean Platelet Volume 8.7 fL (9.4-12.4); Monocytes Absolute Auto 0.5 X10*3/uL (0.1-1.2); Monocytes Percent Auto 8.5 % (2-11); Neutrophils Absolute Auto 4.1 x10*3/uL (2.0-8.3); Neutrophils Percent Auto 66.6 % (45-73); Platelet Count 218 X10*3/uL (160-400); Red Blood Count 4.92 X10*6/uL (4.60-5.80); Red Cell Distribution Width 12.3 % (11.0-16.0); White Blood Count 6.2 X10*3/uL (4.8-10.8)
[2023-04-06 09:37] LABS: Alanine Aminotransferase 28 U/L (0-40); Albumin Level 4.3 g/dL (3.5-5.0); Alkaline Phosphatase 86 U/L (39-117); Anion Gap 15 (12-20); Aspartate Amino Transferase 27 U/L (5-37); Bilirubin Total 0.8 mg/dL (0.0-1.0); Blood Urea Nitrogen 11 mg/dL (9-16); Calcium 9.5 mg/dL (8.4-10.2); Carbon Dioxide 26 mmol/L (22-29); Chloride 106 mmol/L (96-108); Cholesterol 204 mg/dL (<200); Estimated Glomerular Filt Rate > 60; Glucose Random 97 mg/dL (60-115); HDL Cholesterol 70 mg/dL (>40); LDL Cholesterol Calculated 101 mg/dL (<100); Potassium 4.1 mmol/L (3.3-5.1); Sodium 143 mmol/L (135-145); Total Protein 7.2 g/dL (6.5-8.0); Triglycerides 169 mg/dL (<150)
[2023-04-06 09:53] LABS: Free T4 (Free Thyroxine) 0.81 ng/dL (0.71-1.85); Thyroid Stimulating Hormone 2.44 uIU/mL (0.32-4.0)
[2023-04-06 10:35] LABS: Folate 12.2 ng/mL (> or = 4.0); Prostate Specific Antigen Scr 0.79 ng/mL (<0.05-4.0); Vitamin B12 406 pg/mL (200-900)
== END 2023-04-06 08:17 | disposition home or self-care (01) ==
LOC: HO.LAB 08:16
PROVIDERS: PCP Internal Medicine; Visit Provider Internal Medicine
DX: E78.00 Pure hypercholesterolemia, unspecified (principal); Z12.5 Encounter for screening for malignant neoplasm of prostate; Z80.1 Family history of malignant neoplasm of trachea, bronchus and lung
CPT/HCPCS: 36415; 80053; 80061; 82607; 82746; 84153; 84439; 84443; 85025

== ENCOUNTER 2023-06-15 09:16 | Outpatient (REF) | payer MEDICARE, SELFPAY ==
--- NOTE | ~2023-06-15 | FL_ITS ---
EXAMINATION: XR FLUOROSCOPY BARIUM SWALLOW CLINICAL INFORMATION: Patient states food is slow to transit into stomach, and sometimes regurgitates. GERD. Denies oropharyngeal dysphasia. States he has to make numerous bowel movements per morning, which are loose. COMPARISON: None TECHNIQUE: Fluoroscopic air contrast upper GI examination was performed utilizing standard techniques with thin and thick barium and effervescent granules. Numerous spot images were obtained. Several fluoroscopic image hold cine sequences were also obtained. FINDINGS: Patient is status post anterior fusion of C5-C6 with plate and screw fixation, and disc prosthesis. There is complete bony fusion through the disc space. No complication noted involving the hardware. No impression upon the upper esophagus or inferior hypopharyngeal structures. Lateral cine images of the oropharynx and hypopharynx demonstrate normal swallow mechanism with normal epiglottic inversion and soft palate elevation. No tracheal penetration, glottic or subglottic aspiration identified. No nasopharyngeal reflux present. Persistent pooling of contrast was noted in the vallecula and piriform sinuses, which cleared upon subsequent swallows. Hypopharyngeal structures appear normal without evidence of mass or diverticulum. There was mild cricopharyngeal achalasia identified, which was consistent. Dual and single contrast images of the esophagus demonstrate normal caliber, contour, and mucosal pattern. No evidence of stricture, mass, or ulcerations identified. Esophageal peristalsis was mildly disordered. Small hiatus hernia was present at the GE junction, type I. There was a Schatzki's ring present, nonobstructing (RF 1-7, image 2). No significant gastroesophageal reflux was seen during the course of the examination and on reflux views. Dual contrast and single contrast images of the stomach demonstrated thickened rugal folds suggestive of mild gastritis. No evidence of mass, large ulceration, or gross mucosal abnormality. Contrast freely passed into the gastric antrum and duodenal bulb without delay. Single and air-contrast images of the duodenal bulb demonstrate no abnormality. The duodenal sweep has a normal appearance, course, and mucosal fold appearance. The imaged proximal jejunum has a normal fold pattern and caliber. Patient had notable rapid transit of contrast through the small bowel into the colon and rectum by 4 minutes and 15 seconds. The proximal and distal small bowel have normal mucosal patterns and caliber. Suggestion of mild dilution of barium could suggest malabsorption syndrome. FLUOROSCOPY TIME: 4 minutes 15 seconds Number of Spot Images: 11 Number of cines obtained: 8 DOSE AREA PRODUCT: [id number] uGy-m2 (microgray-meter squared) FL/FL barium swallow IMPRESSION: 1. 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 No laryngeal penetration or aspiration. 2. C5-C6 fusion without evidence of any mass effect upon the hypopharyngeal structures. 3. Mildly disordered esophageal peristalsis. 4. Mild gastroesophageal reflux noted. 5. Small type I hiatus hernia. Schatzki's ring present, nonobstructing. 6. Thickened rugal folds of the stomach suggesting gastritis. 7. Fast contrast small bowel transit into the colon, which reached the rectum by 4 minutes and 15 seconds, consistent with markedly increased transit speed. No mucosal abnormality of the small bowel noted. There was dilution of the contrast which could suggest a malabsorption syndrome.
== END 2023-06-15 09:17 | disposition home or self-care (01) ==
LOC: HO.XRAY 09:16
PROVIDERS: PCP Internal Medicine; Visit Provider Otolaryngology
DX: R13.10 Dysphagia, unspecified (principal)
CPT/HCPCS: 74220

== ENCOUNTER → 2023-06-15 09:18 | Outpatient (BNV) | payer MEDICARE, SELFPAY | PROVIDERS: PCP Internal Medicine; Visit Provider Radiology Diagnostic Radiology | DX: K21.9 Gastro-esophageal reflux disease without esophagitis (principal) | CPT/HCPCS: 74246 ==

== ENCOUNTER 2023-08-21 14:57 | Outpatient (AMB) | payer MEDICARE, SELFPAY ==
--- NOTE | 2023-08-21 15:01 | MHC.PC.OV ---
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 Echocardiogram done in February 2023 normal EF at 60% right atrial dilatation with mild dilatation of the ascending aorta 3.8 cm. Patient's colonoscopy is up-to-date. Review of the notes patient had barium swallow showing mild cricopharyngeal achalasia history of C5-6 fusion GERD mild small hiatal hernia with Schatzki's ring thick rugal folds of the stomach suggesting gastritis in markedly increased transit speed concern about malabsorption syndrome. patient is going to see Gastro soon. complains of hand numbness but states NCV done negative. but has pain PFSH Medical History (Updated 08/21/23 @ 15:48 by Tal Cuellar MD) Oral thrush Feeling of incomplete bladder emptying Paroxysmal atrial fibrillation Surgical History (Updated 04/05/23 @ 14:18 by Tal Cuellar MD) H/O neck surgery Hx of vasectomy Hx of hernia repair History of radiofrequency ablation (RFA) procedure for cardiac arrhythmia Hx of hemorrhoidectomy History of tonsillectomy and adenoidectomy Family History (Updated 04/05/23 @ 14:20 by Tal Cuellar MD) Father Cancer Lung cancer Mother Cancer Lung cancer Paternal Uncle Lung cancer Paternal Aunt Lung cancer Maternal Grandfather Rectal cancer Social History (Updated 08/21/23 @ 15:31 by Tal Cuellar MD) Alcohol intake: current Alcohol intake frequency: 0-2 drinks per day Comment: QD 2 beers Patient Tobacco Use Status: Former Tobacco user Years Smoked: quit 1999 14 years old start 2-3 pack aday marijuana Substance Use Type: Marijuana service: No Cognitive needs: No Hearing needs: No Vision needs: No Questionnaire PHQ-9 Over the last 2 weeks, how often have you been bothered by any of the following problems? Depression Screening Interpretation: Negative Depression Screening Done: Yes Source: Developed by Drs. Sukhdev Jama, Rafy Bardales and colleagues, with an educational mario from [employer]. Thrive Questionnaire Date Thrive assessed: 04/05/23 SRIRAM-7 AMB Questionnaire SRIRAM-7 Date SRIRAM - 7 assessed: 04/05/23 Source: Developed by Drs. Sukhdev Jama, Yolie Hopson, Rafy Dc and colleagues, with an educational mario from [employer]. Review of Systems Const Denies poor appetite and Denies weakness Eyes Denies no additional complaints ENT Reports Normal hearing present, Denies dizziness, Denies nasal congestion, Denies tinnitus and Denies sore throat Card Denies chest pain, Denies syncope, Denies rapid heart rate and Denies dyspnea Resp Denies cough and Denies dyspnea GI Denies change in stool character, Reports constipation, Denies diarrhea, Denies nausea and Denies vomiting Denies dysuria and Denies urinary frequency Neuro Reports Normal hearing present, Denies confusion, Denies dizziness, Denies syncope and Denies weakness Psych Denies confusion Physical exam (Primary Care) Vital Signs: Last Vital Signs Pulse 55 08/21/23 15:02 BP 110/70 08/21/23 15:02 Pulse Ox 96 08/21/23 15:02 Oxygen Delivery Method Room Air 08/21/23 15:02 BMI result Body Mass Index 26.1 Tobacco/Smoking Status: Tobacco use Status Tobacco use date assessed 04/05/23 08/21/23 15:03 Patient Tobacco Use Status Former Tobacco user 08/21/23 15:31 Depression Screening Interpretation: Negative Thrive Assessment: Date of Thrive Assessment Date Thrive assessed 04/05/23 08/21/23 15:03 Const General: alert and awake; No confusion Orientation/consciousness: No confusion HENMT Head: Yes normocephalic Ears: external ears normal and TM's normal bilaterally Face and sinus: Yes normal facial exam Mouth: moist mucous membranes Throat: Yes tonsils normal Eyes Conjunctivae: conjunctivae normal Pupils: Equal, round and reactive pupils present and Pupil accommodation reflex normal Direct Ophthalmoscopy: normal light reflex Neck Neck: No lymphadenopathy Thyroid: Thyroid normal Chest Chest palpation & inspection: normal inspection of the chest Resp Effort & Inspection: normal respiratory effort and no audible wheezes Auscultation: clear to auscultation bilaterally, no crackles, no wheezes and lung sounds not diminished Cardio Rate: regular rate Rhythm: regular rhythm Peripheral pulses: radial pulses present and dorsalis pedis present GI Other: guiaac negative prostate mild enlarge Palpation (GI): no masses Auscultation: normal bowel sounds and normoactive bowel sounds Male General Exam: Yes normal external exam Skin General skin exam: no rashes or lesions noted Rashes: no rashes Neuro General: deep tendon reflexes 2+ bilaterally and No confusion Cranial nerves: Yes Equal, round and reactive pupils present, Yes Midline tongue present, Yes Normal hearing present and Yes Ability to bilaterally elevate shoulders present Cognition (Neuro): normal cognition Gait exam (Neuro): Normal gait present Motor exam (neuro): 5/5 motor strength present throughout Deep tendon reflexes (DTR's): Right brachioradialis reflex intensity grade: 2+, Left brachioradialis reflex intensity grade: 2+, Right patellar reflex intensity grade: 2+ and Left patellar reflex intensity grade: 2+ Extrem General: No edema Immunizations tetanus-diphtheria toxoids-Td 2 Lf unit-2 Lf unit/0.5 mL IM suspension Performing Provider: Tal Cuellar MD Performing Location: [facility] Administered by: FIDEL Lacy on 08/21/23 15:59 Dose Route Admin Location Dispensed Lot Number Expiration Date NDC [employer] 0.5 mL IM Left Deltoid 0.5 mL [id number] 03/24/24 [address]-3 [employer] VIS Given Date VIS Provided VIS Publication Date 08/21/23 Single Vaccine 20 Eligibility Eligibility Date Funding Source Not C Eligible 08/21/23 State funds Assessment and Plan Assessment & Plan (1) Annual physical exam: Code(s): Z00.00 - Encounter for general adult medical examination without abnormal findings Plan: Patient is advised to eat healthy, keep well hydrated, keep active and have adequate sleep. (2) Paroxysmal atrial fibrillation: Comment: Cardioversion Dr. [place] 1999 Code(s): I48.0 - Paroxysmal atrial fibrillation Plan: Continue to follow up with Cardiology recent stress test negative (3) Hypercholesterolemia: Code(s): E78.00 - Pure hypercholesterolemia, unspecified Plan: Avoid fried foods, chicken skin, eggs, butter margarine, pastries and meat. Be it pork or beef they have a lot of cholesterol LDL goal of less than 130 and triglyceride of less than 150 on atorvastatin 10 mg once a day 03/2023 last blood work (4) BPH w urinary obs/LUTS: Comment: TURP 2022 [place] Code(s): N40.1 - Benign prostatic hyperplasia with lower urinary tract symptoms; N13.8 - Other obstructive and reflux uropathy Plan: Stable (5) Carpal tunnel syndrome of right wrist: Comment: 02/2019 Code(s): G56.01 - Carpal tunnel syndrome, right upper limb Plan: EMG to do (6) Ulnar neuropathy at elbow of right upper extremity: Comment: 2019 Code(s): G56.21 - Lesion of ulnar nerve, right upper limb Plan: NCV requested (7) Bilateral hand numbness: Code(s): R20.0 - Anesthesia of skin Plan: NCV requested (8) Bilateral hand pain: Code(s): M79.641 - Pain in right hand; M79.642 - Pain in left hand Plan: xray requested (9) Vision changes: Code(s): H53.9 - Unspecified visual disturbance Orders: Orders [place] electromyogram (EMG) Today R20.0 - Anesthesia of skin XR hand RT 2V Today M79.641 - Pain in right hand, M79.642 - Pain in left hand Td State Immunization Today Z23 - Encounter for immunization NE nerve conduction velocity Today R20.0 - Anesthesia of skin XR hand LT 2V Today M79.641 - Pain in right hand, M79.642 - Pain in left hand Referrals Ophthalmology Referral H53.9 - Unspecified visual disturbance Coding Level of Care Code Est Pt Prev Care >65y(92116) Diagnoses Annual physical exam Z00.00 Paroxysmal atrial fibrillation I48.0 Hypercholesterolemia E78.00 BPH w urinary obs/LUTS N40.1; N13.8 Carpal tunnel syndrome of right wrist G56.01 Ulnar neuropathy at elbow of right upper extremity G56.21 Bilateral hand numbness R20.0 Bilateral hand pain M79.641; M79.642 Vision changes H53.9
[2023-08-21 15:02] VITALS: BP 110/70; PULSE 55; O2SAT 96; BMI 26.1
== END 2023-08-21 16:03 | disposition home or self-care (01) ==
PROVIDERS: PCP Internal Medicine; Visit Provider Internal Medicine
DX: Z00.00 Encounter for general adult medical examination without abnormal findings (principal); I48.0 Paroxysmal atrial fibrillation; E78.00 Pure hypercholesterolemia, unspecified; N40.1 Benign prostatic hyperplasia with lower urinary tract symptoms; N13.8 Other obstructive and reflux uropathy; G56.01 Carpal tunnel syndrome, right upper limb; G56.21 Lesion of ulnar nerve, right upper limb; R20.0 Anesthesia of skin; M79.641 Pain in right hand; M79.642 Pain in left hand; H53.9 Unspecified visual disturbance; Z23 Encounter for immunization
CPT/HCPCS: 90471; 90714; 99397

== ENCOUNTER 2023-09-04 10:29 | Outpatient (REF) | payer MEDICARE, SELFPAY ==
--- NOTE | ~2023-09-04 | XR_ITS ---
EXAMINATION: XR HAND, BILATERAL CLINICAL INFORMATION: Pain COMPARISON: None available. TECHNIQUE: 4 views of each hand FINDINGS: RIGHT: No acute visible fracture or dislocation. Mild multi joint arthritic changes. Radiopaque linear density measuring 1 mm along the ulnar aspect of the third middle phalanx, nonspecific. Joint space alignment otherwise maintained. Soft tissues are unremarkable. LEFT: No acute visible fracture or dislocation. Moderate multi joint arthritic changes greatest at the first carpometacarpal joint. A few radiopaque densities measuring roughly 1 mm are noted at the first and second interruptions spaces, nonspecific. Joint space alignment otherwise maintained. Soft tissues are unremarkable. XR/XR hand RT 2V IMPRESSION: 1. No acute visible fracture or dislocation. 2. Bilateral multi joint arthritic changes greatest along the left first carpometacarpal joint. 3. Radiopaque linear density measuring 1 mm along the ulnar aspect of the right third middle phalanx, nonspecific. 4. A few radiopaque densities measuring roughly 1 mm are noted at the left first and second interruptions spaces, nonspecific.
--- NOTE | ~2023-09-04 | XR_ITS ---
EXAMINATION: XR HAND, BILATERAL CLINICAL INFORMATION: Pain COMPARISON: None available. TECHNIQUE: 4 views of each hand FINDINGS: RIGHT: No acute visible fracture or dislocation. Mild multi joint arthritic changes. Radiopaque linear density measuring 1 mm along the ulnar aspect of the third middle phalanx, nonspecific. Joint space alignment otherwise maintained. Soft tissues are unremarkable. LEFT: No acute visible fracture or dislocation. Moderate multi joint arthritic changes greatest at the first carpometacarpal joint. A few radiopaque densities measuring roughly 1 mm are noted at the first and second interruptions spaces, nonspecific. Joint space alignment otherwise maintained. Soft tissues are unremarkable. XR/XR hand LT 2V IMPRESSION: 1. No acute visible fracture or dislocation. 2. Bilateral multi joint arthritic changes greatest along the left first carpometacarpal joint. 3. Radiopaque linear density measuring 1 mm along the ulnar aspect of the right third middle phalanx, nonspecific. 4. A few radiopaque densities measuring roughly 1 mm are noted at the left first and second interruptions spaces, nonspecific.
== END 2023-09-04 10:30 | disposition home or self-care (01) ==
LOC: HO.XRAY 10:29
PROVIDERS: PCP Internal Medicine; Visit Provider Internal Medicine
DX: M79.641 Pain in right hand (principal); M79.642 Pain in left hand
CPT/HCPCS: 73120

== ENCOUNTER 2023-09-14 09:25 | Outpatient (REF) | payer MEDICARE, SELFPAY ==
--- NOTE | 2023-09-14 09:28 | EMG_ITS ---
Chief complaint: Bilateral hand numbness, pain Reason for referral: Evaluate for Carpal Tunnel Syndrome or ulnar neuropathy Referred by: Dr. Cuellar Procedure done: Bilateral upper extremities NCS/EMG Precautions and/or limitations: Prior cervical fusion The limb temperature was monitored continuously and remained between 32-36 degrees C during the performance of the NCS. Ulnar motor NCS was performed with moderate elbow flexion between 70-90 degrees, with across-elbow distance of 10 cm. Nerve Conduction Studies Anti Sensory Summary Table ?Stim Site NR Onset (ms) Norm Onset (ms) Peak (ms) Norm Peak (ms) O-P Amp (?V) Norm O-P Amp Site1 Site2 Delta-0 (ms) Dist (cm) Hossein (m/s) Norm Hossein (m/s) Left Median Anti Sensory (2nd Digit) Wrist ? 3.1 3.9 <3.6 14.4 >10 Wrist 2nd Digit 3.1 14.0 45 Right Median Anti Sensory (2nd Digit) Wrist ? 3.7 4.7 <3.6 7.4 >10 Wrist 2nd Digit 3.7 14.0 38 Right Radial Anti Sensory (Thumb) Forearm ? 1.7 2.4 <3.1 20.3 Forearm Thumb 1.7 0.0 Left Ulnar Anti Sensory (5th Digit) Wrist ? 2.9 3.5 <3.7 6.6 >15.0 Wrist 5th Digit 2.9 14.0 48 Right Ulnar Anti Sensory (5th Digit) Wrist ? 2.8 3.5 <3.7 3.0 >15.0 Wrist 5th Digit 2.8 14.0 50 Motor Summary Table ?Stim Site NR Onset (ms) Norm Onset (ms) O-P Amp (mV) Norm O-P Amp iAmp (mV) Amp (1st) (%) Site1 Site2 Delta-0 (ms) Dist (cm) Hossein (m/s) Norm Hossein (m/s) Left Median Motor (Abd Poll Brev) Wrist ? 4.5 <3.9 5.4 >4.5 6.3 100.0 Elbow Wrist 5.0 23.0 46 >45 Elbow ? 9.5 4.4 5.2 81.5 Right Median Motor (Abd Poll Brev) Wrist ? 4.8 <3.9 6.9 >4.5 9.7 100.0 Elbow Wrist 5.0 23.0 46 >45 Elbow ? 9.8 6.5 9.0 94.2 Left Ulnar Motor (Abd Dig Minimi) Wrist ? 3.3 <3.0 9.0 >5 10.0 100.0 B Elbow Wrist 4.0 21.0 53 >45 B Elbow ? 7.3 6.9 8.0 76.7 A Elbow B Elbow 3.0 10.0 33 >45 A Elbow ? 10.3 6.6 7.8 73.3 Right Ulnar Motor (Abd Dig Minimi) Wrist ? 2.7 <3.0 9.0 >5 10.1 100.0 B Elbow Wrist 5.1 22.0 43 >45 B Elbow ? 7.8 7.7 9.0 85.6 A Elbow B Elbow 2.6 10.0 38 >45 A Elbow ? 10.4 7.3 8.4 81.1 EMG ?Side Muscle Nerve Root Ins Act Fibs Psw Amp Dur Poly Recrt Int Pat Comment Right 1stDorInt Ulnar C8-T1 Nml Nml Nml Nml Nml 0 Nml Complete Right FlexCarRad Median C6-7 Nml Nml Nml Nml Nml 0 Nml Complete Right Biceps Musculocut C5-6 Nml Nml Nml Nml Nml 0 Nml Complete Right Triceps Radial C6-7-8 Nml Nml Nml Nml Nml 0 Nml Complete Right Deltoid Axillary C5-6 Nml Nml Nml Nml Nml 0 Nml Complete Left 1stDorInt Ulnar C8-T1 Nml Nml Nml Nml Nml 0 Nml Complete Left FlexCarRad Median C6-7 Nml Nml Nml Nml Nml 0 Nml Complete Left Biceps Musculocut C5-6 Nml Nml Nml Nml Nml 0 Nml Complete Left Triceps Radial C6-7-8 Nml Nml Nml Nml Nml 0 Nml Complete Left Deltoid Axillary C5-6 Nml Nml Nml Nml Nml 0 Nml Complete FINDINGS: Bilateral median motor nerves showed prolonged distal latency, normal amplitude and normal conduction velocity. Right ulnar motor nerve showed normal distal latency, normal amplitude and slow conduction velocity especially across the elbow. Left ulnar motor nerve showed prolonged distal latency, normal amplitude and slow conduction velocity across the elbow. Bilateral median sensory nerves showed prolonged peak latency. Right side showed low amplitude as well. Bilateral ulnar sensory nerves showed small amplitudes. All other nerves tested were within normal. Concentric needle EMG was performed in selected muscles of the bilateral upper extremities. Study did not reveal signs of electric abnormalities as shown in the table above. IMPRESSION: 1. This is an abnormal study. 2. There is electrodiagnostic evidence for bilateral moderate-severe median neuropathy at the wrist, consistent with carpal tunnel syndrome. 3. There is electrodiagnostic evidence for bilateral ulnar neuropathy at the elbow. 4. There is no electrodiagnostic evidence for brachial plexopathy or cervical radiculopathy. Thank you for your kind referral. Elaine Stoner MD, RICARDO Board Certified, [place] [employer] and [employer] (ABPMR) Board Certified, [place] [employer] Electrodiagnostic Medicine (ABEM) CODIN 05003 x 2 MTDD
== END 2023-09-14 09:26 | disposition home or self-care (01) ==
LOC: HO.NEURO 09:25
PROVIDERS: PCP Internal Medicine; Visit Provider Internal Medicine
DX: R20.0 Anesthesia of skin (principal)
CPT/HCPCS: 95886; 95911

== ENCOUNTER → 2023-09-14 09:28 | Outpatient (BNV) | payer MEDICARE, SELFPAY | PROVIDERS: PCP Internal Medicine; Visit Provider Physical Medicine & Rehabilitation | DX: G56.03 Carpal tunnel syndrome, bilateral upper limbs (principal); G56.23 Lesion of ulnar nerve, bilateral upper limbs | CPT/HCPCS: 95886; 95911 ==

== ENCOUNTER 2023-10-23 13:46 | Outpatient (AMB) | payer MEDICARE, SELFPAY ==
--- NOTE | 2023-10-23 13:48 | A.OFFVIS_ITS ---
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 Right greater than worse. EMG done on 09/14/2023. Patient reports he is having pain on the volar aspect of his MCP joints in both index fingers. He is unable to make a closed first and if he forces it shut he describes it as severe pain, throbbing, and occasional swelling. He is very active with his hands he says however he is saying it is becoming difficult to twist a cap off a water bottle. Patient reports difficulty with grabbing and holding objects. Patient would like to discuss surgery, right hand first. Hx of Left hand Middle finger trigger release in NEOs. Hx of cortisone in middle finer of right hand and ring finger of left. 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 The patient reports that this numbness and tingling is worse on the right side than the left, and then it affects primarily the middle, ring, small fingers of bilateral hands. Patient states that he did have an EMG done on 09/14/2023, but states that he is not sure what the results of this were. Of note, the patient also reports significant pain in bilateral index fingers at the level of the A1 enio, and states that this pain was similar to the pain he experienced with trigger fingers that were previously treated at [facility]. The patient states that he has noticed decreased strength and range of motion of bilateral hands occurring over this time, and states that is something to allow for him to have greater strength in bilateral hands. The patient reports that he would like to proceed with any surgical intervention on the right side 1st, as this bothers him more. No other acute complaints or concerns at this time. [facility] Medical History Oral thrush Feeling of incomplete bladder emptying Paroxysmal atrial fibrillation Surgical History H/O neck surgery Hx of vasectomy Hx of hernia repair History of radiofrequency ablation (RFA) procedure for cardiac arrhythmia Hx of hemorrhoidectomy History of tonsillectomy and adenoidectomy Family History Father Cancer Lung cancer Mother Cancer Lung cancer Paternal Uncle Lung cancer Paternal Aunt Lung cancer Maternal Grandfather Rectal cancer Social History Alcohol intake: current Alcohol intake frequency: 0-2 drinks per day Comment: QD 2 beers Patient Tobacco Use Status: Former Tobacco user Years Smoked: quit 1999 14 years old start 2-3 pack aday marijuana Substance Use Type: Marijuana service: No Current occupational status: retired Current occupation: right hand dominant Cognitive needs: No Hearing needs: No Vision needs: No Review of Systems Const All systems reviewed & are unremarkable except as noted in HPI and below Physical Exam Vital Signs: BMI result Body Mass Index 25.8 Extrem Other: Patient is alert, oriented, and in no acute distress. Neuro: Patient reports diminished sensation right middle, ring, small fingers in the office at this time Patient reports normal sensation of the tips of all digits of the left hand at this time Good APB muscle belly firing Good finger cross Vascular: Cap refill brisk Pain: Patient reports significant tenderness to palpation of both the left and right index fingers at the level of the A1 enio Patient also reports pain with flexion of the digits of the right hand to attempt to make a closed fist Patient reports no pain with range of motion of the left hand ROM: With encouragement, the patient is able to get close to a closed fist on the right, and is able to extend all digits fully Patient is able to make a closed fist and extend all digits of the left hand without difficulty No visible or palpable locking and catching of index fingers on the left or the right No visible and palpable locking and catching of any of the other digits of bilateral hands at this time. Skin: No lacerations or abrasions. General: No ecchymosis, erythema, or evidence of infection. Psych: Appears grossly normal Affect normal Attitude cooperative Results Reviewed Results Reviewed: IMPRESSION: 1. This is an abnormal study. 2. There is electrodiagnostic evidence for bilateral moderate-severe median neuropathy at the wrist, consistent with carpal tunnel syndrome. 3. There is electrodiagnostic evidence for bilateral ulnar neuropathy at the elbow. 4. There is no electrodiagnostic evidence for brachial plexopathy or cervical radiculopathy. Elaine Stoner MD, RICARDO Assessment & Plan Assessment & Plan (1) Cubital tunnel syndrome, bilateral: Code(s): G56.23 - Lesion of ulnar nerve, bilateral upper limbs Category: Medical (2) Carpal tunnel syndrome, bilateral upper limbs: Code(s): G56.03 - Carpal tunnel syndrome, bilateral upper limbs Category: Medical (3) Flexor tenosynovitis of finger: Code(s): M65.9 - Synovitis and tenosynovitis, unspecified Category: Medical Plan 1. Cubital tunnel syndrome, right 2. Carpal tunnel syndrome, right Symptoms intermittent, daily, worse at night I educated the patient about the condition. I discussed both operative and nonoperative treatment options. The patient would like to proceed with surgery. The risks and benefits of operative treatment were discussed with the patient and the patient wishes to proceed with surgery. These risks include, but are not limited to, risk of damage to blood vessels, nerves, tendons, infection, recurrence, incomplete relief of preoperative symptoms, persistent pain, possible need for further surgery, and the risks associated with regional blocks and/or anesthesia. Plan is to take the patient to the operating room at some point in the next few weeks for the following procedures: 1. Cubital tunnel release under general anesthesia 2. Carpal tunnel release under general anesthesia All of the preoperative paperwork including the consent was discussed today. All of the patient's questions were answered in the clinic today. The patient understands that they will be in contact with our neurosurgical physician assistant to discuss scheduling their procedure. The patient does state that he will need to schedule his procedure in December, as he has a very busy November with weddings and vacations planned. Patient denies diabetes, blood thinners, asthma, heart issues, lung issues, kidney issues Patient reports that he does very occasionally smoke marijuana, but states that he will refrain from doing so while recovering from surgery. 3. Cubital tunnel syndrome, left 4. Carpal tunnel syndrome, left Symptoms intermittent, daily, worse at night The patient would like to proceed with surgery on the right side 1st as he finds it more bothersome Patient will discuss operative treatment of the left side when he has begun recovery from surgery on the right side Patient is amenable to this plan 5. Non infectious pre trigger tenosynovitis of right index finger I educated the patient about this condition, and the treatment options available. The patient would like to proceed with injection at this time The risks and benefits of a steroid injection including but not limited to risk of damage to blood vessels, nerves, tendons, infection, skin bleaching, failure to improve symptoms, increased pain, and possible need for further injections or other intervention were discussed with the patient and the patient wishes to proceed with the steroid injection. Once consent was obtained, I sterilely prepped the area over the A1 enio of the flexor tendon sheath of the right index finger. I then injected the flexor tendon sheath with a combination of 1 mL of dexamethasone (4mg/ml), and 1% lidocaine. The patient tolerated the procedure well with no complications. If the patient continues to have locking and catching 4-6 weeks following this injection, they may call to schedule appointment to discuss alternative treatment options 6. Noninfectious pre trigger tenosynovitis of the left index finger Informed the patient that we can not inject multiple hands at the same time I informed the patient that if in 4-6 weeks he has experienced good relief from his 1st injection, he can present to the office for injection of the left index finger. Patient is amenable to this plan Patient will follow-up as needed with any acute concerns Coding Level of Care Code New Pt Level 5 (70154) Diagnoses Cubital tunnel syndrome, bilateral G56.23 Carpal tunnel syndrome, bilateral upper limbs G56.03 Flexor tenosynovitis of finger M65.9
[2023-10-23 13:51] VITALS: BMI 25.8
== END 2023-10-23 15:04 | disposition home or self-care (01) ==
PROVIDERS: PCP Internal Medicine
DX: G56.23 Lesion of ulnar nerve, bilateral upper limbs (principal); G56.03 Carpal tunnel syndrome, bilateral upper limbs; M65.9 Synovitis and tenosynovitis, unspecified; M65.321 Trigger finger, right index finger
CPT/HCPCS: 20550; 99204; 99214

== ENCOUNTER → 2023-10-23 13:46 | Outpatient (BNVA) | payer MEDICARE, SELFPAY | PROVIDERS: PCP Internal Medicine | DX: G56.03 Carpal tunnel syndrome, bilateral upper limbs (principal); G56.23 Lesion of ulnar nerve, bilateral upper limbs; M65.9 Synovitis and tenosynovitis, unspecified | CPT/HCPCS: 20550; 99202; J1100 ==

== ENCOUNTER 2023-11-05 11:28 | Day surgery (SDC) | payer MEDICARE, SELFPAY ==
[2023-11-01 14:55] VITALS: BMI 25.8
[2023-11-05 12:06] VITALS: BMI 26.3
[2023-11-05 12:14] VITALS: BP 134/84; PULSE 54; RESP 18; TEMP 36.5; O2SAT 96
[2023-11-05] MEDS: Lactated Ringers 1,000 ML 100 ML IVCONT (12:29)
--- NOTE | 2023-11-05 13:30 | P.CONAN_ITS ---
Documented by User: Mary Ann Moore NP 11/02/23 07:39 HPI - Anesthesia Eval Consult details Narrative: 67yo M for Upper Endoscopy with Balloon Dilitation PAF s/p ablation, no OAC Follow[facility]. Last office visit 02/2023: afib stable; atypical CP with multiple risk factors, exercise stress negative [facility] Active Problems Active Problems: All Active Problems Flexor tenosynovitis of finger (Acute) Cubital tunnel syndrome, bilateral (Acute) Carpal tunnel syndrome, bilateral upper limbs (Acute) Vision changes (Acute) Bilateral hand pain (Acute) Bilateral hand numbness (Acute) Ulnar neuropathy at elbow of right upper extremity (Acute) Carpal tunnel syndrome of right wrist (Acute) Annual physical exam (Acute) Throat irritation (Acute) Family history of lung cancer (Acute) Hypercholesterolemia (Acute) BPH w urinary obs/LUTS (Acute) Paroxysmal atrial fibrillation (Acute) Past Medical History Medical History Dysphagia IBS (irritable bowel syndrome) Hyperlipidemia BPH (benign prostatic hyperplasia) Paroxysmal atrial fibrillation Family History Family History Father Cancer Lung cancer Mother Cancer Lung cancer Paternal Uncle Lung cancer Paternal Aunt Lung cancer Maternal Grandfather Rectal cancer Surgical History Surgical History Hx of transurethral resection of prostate H/O neck surgery Hx of vasectomy Hx of hernia repair History of radiofrequency ablation (RFA) procedure for cardiac arrhythmia Hx of hemorrhoidectomy History of tonsillectomy and adenoidectomy Social History Social History (Updated 11/01/23 @ 15:01 by Billie Guzman RN) Household Members: Spouse Are you a primary intensive care ambulance paramedic to a significant other at home: No Do you presently have visiting nurse or other home services: No Alcohol intake: current Alcohol intake frequency: 0-2 drinks per day Comment: QD 2 beers Patient Tobacco Use Status: Former Tobacco user Years Smoked: quit 1999 14 years old start 2-3 pack aday marijuana Use of substances other than those prescribed or required for medical reasons: Yes Substance Use Type: Marijuana Substance Use Frequency: Daily Have you been hit, kicked, punched, or otherwise hurt by someone within the past year? If so, by whom?: No Are you DNR?: No Advance Directives: No Advance Directives Information Provided: Yes Recently lost weight without trying: No Nutrition Risks: No Nutritional Risk Poor oral hygiene: No service: No Current occupational status: retired Current occupation: right hand dominant Cognitive needs: No Hearing needs: No Vision needs: No Meds Allergies Allergy/AdvReac Type Severity Reaction Status Date / Time No Known Allergies Allergy Verified 10/23/23 13:52 [No Known Allergies*] Home Medications ?Medication ?Instructions ?Recorded ?Confirmed ?Last Taken ?Type cholecalciferol (vitamin D3) 25 25 mcg PO DAILY 01/30/20 11/01/23 Unknown History mcg (1,000 unit) capsule dicyclomine 10 mg capsule 10 mg PO TID 10/23/23 11/05/23 11/05/23 07:00 History Exam Height,Weight and Vital Signs: Height 5 ft 9 in Weight 79.379 kg Narrative Narrative: Exercise stress 07/2023 Protocol: ANGEL Max HR: 134 BPM 88% of Pred: 151 BPM Max BP: 184/074 mmHG Max Work Load: 7.7 METS Exercise stress test exercuse 6 min 31 sec of Angel protocol achieving 88% MPHR, with mild SOB, no chest discomforts, with isolated PVCs and PACs, with normotensive response to exercise, without EKG changes., Test reviewed with . EKG 02/2023 sinus bradycardia with first-degree AV block otherwise normal EKG ECHO 02/2023 Conclusions: - The left ventricular systolic function is normal. The calculated ejection fraction is 60% by biplane method. - Severely increased right ventricular cavity size. There is normal right ventricular systolic function. (RV basal diameter 5.7cm). - The right atrium is severely dilated. - No obvious valvular pathology seen on this study. - There is mild dilatation of the sinuses of Valsalva measuring 4.20 cm and mild dilatation of the ascending aorta measuring 3.80 cm. Assessment and Plan Assessment Anesthesia Assessment: Chart Reviewed Documented by User: Magdalene Key DO 11/05/23 13:37 [facility] Past Medical History Medical History Dysphagia IBS (irritable bowel syndrome) Hyperlipidemia BPH (benign prostatic hyperplasia) Paroxysmal atrial fibrillation Family History Family History Father Cancer Lung cancer Mother Cancer Lung cancer Paternal Uncle Lung cancer Paternal Aunt Lung cancer Maternal Grandfather Rectal cancer Family history of problems with anesthesia: No Surgical History Surgical History Hx of transurethral resection of prostate H/O neck surgery Hx of vasectomy Hx of hernia repair History of radiofrequency ablation (RFA) procedure for cardiac arrhythmia Hx of hemorrhoidectomy History of tonsillectomy and adenoidectomy History of Problems with Anesthesia: No Social History Social History (Updated 11/01/23 @ 15:01 by Billie Guzman RN) Household Members: Spouse Are you a primary intensive care ambulance paramedic to a significant other at home: No Do you presently have visiting nurse or other home services: No Alcohol intake: current Alcohol intake frequency: 0-2 drinks per day Comment: QD 2 beers Patient Tobacco Use Status: Former Tobacco user Years Smoked: quit 1999 14 years old start 2-3 pack aday marijuana Use of substances other than those prescribed or required for medical reasons: Yes Substance Use Type: Marijuana Substance Use Frequency: Daily Have you been hit, kicked, punched, or otherwise hurt by someone within the past year? If so, by whom?: No Are you DNR?: No Advance Directives: No Advance Directives Information Provided: Yes Recently lost weight without trying: No Nutrition Risks: No Nutritional Risk Poor oral hygiene: No service: No Current occupational status: retired Current occupation: right hand dominant Cognitive needs: No Hearing needs: No Vision needs: No Meds Allergies Allergy/AdvReac Type Severity Reaction Status Date / Time No Known Allergies Allergy Verified 10/23/23 13:52 [No Known Allergies*] Home Medications ?Medication ?Instructions ?Recorded ?Confirmed ?Last Taken ?Type cholecalciferol (vitamin D3) 25 25 mcg PO DAILY 01/30/20 11/01/23 Unknown History mcg (1,000 unit) capsule dicyclomine 10 mg capsule 10 mg PO TID 10/23/23 11/05/23 11/05/23 07:00 History Exam Exam Date and Time: 11/05/23 1330 Height,Weight and Vital Signs: Height 5 ft 9 in Weight 79.379 kg Height 5 ft 9 in Weight 80.739 kg Vital Signs Temperature 97.7 F 11/05/23 12:14 Pulse Rate 54 11/05/23 12:14 Respiratory Rate 18 11/05/23 12:14 Blood Pressure 134/84 11/05/23 12:14 Pulse Oximetry 96 11/05/23 12:14 Oxygen Delivery Method Room Air 11/05/23 12:14 Temperature 97.7 F 11/05/23 12:14 Pulse Rate 54 11/05/23 12:14 Respiratory Rate 18 11/05/23 12:14 Blood Pressure 134/84 11/05/23 12:14 Pulse Oximetry 96 11/05/23 12:14 Oxygen Delivery Method Room Air 11/05/23 12:14 Airway Mallampati Class: II TM Dist: >3cm Neck ROM: Limited Loose/Missing/Broken Teeth: Yes (missing molar left upper jaw) Heart: S1S2 Lungs: CTAB Assessment and Plan Assessment Anesthesia Assessment: Anesthesia Plan Discussed and Chart Reviewed Final Anesthetic Review Family History of Problems with Anesthesia: No History of Problems with Anesthesia: No NPO: Yes ASA Class: II Final Preanesthetic Review: No Changes in Pt Med Stat, Meds/Allgs Chart Reviewed, Consent Obtained/Reviewed and Anes Risks/Benef Reviewed Patient Risk: Low Procedure Risk: Low Anesthetic Plan Anesthetic Plan: MAC: and Agree w/ Assess. and Plan Disposition: Standard PACU
[2023-11-05 14:23] VITALS: BP 115/73; PULSE 67; RESP 16; TEMP 36.2; O2SAT 96
--- NOTE | 2023-11-05 14:27 | PM.OP ---
Brief Operative Note Date of Service: 11/05/23 Pre-op diagnosis: Dysphagia Post-op diagnosis: other (Esophagitis, gastritis, duodenitis) Procedure: EGD with biopsies and Balloon dilation from 15mm to 16.5mm to 17mm Surgeon: Sukhdev Hawkins MD Anesthesia: MAC Was an Software Qa System Specialist used for this Procedure?: No Estimated blood loss (mL): 2.0 Pathology: other (A. Descending duodenum B. Gastric antrum C. EG Junction at 39cm) Condition: stable Disposition: PACU
[2023-11-05 14:38] VITALS: BP 132/88; PULSE 56; RESP 16; O2SAT 95
[2023-11-05 14:53] VITALS: BP 134/89; PULSE 60; RESP 16; TEMP 36.2; O2SAT 95
--- NOTE | 2023-11-06 00:08 | OP_ITS ---
DATE OF SERVICE: 11/05/2023 SURGEON: Sukhdev Hawkins MD INDICATIONS: The patient presents for evaluation of dysphagia and abnormal barium swallow. Full consent has been obtained from him for this, including risks of bleeding and perforation. PREOPERATIVE DIAGNOSIS: POSTOPERATIVE DIAGNOSIS: PROCEDURE PERFORMED: Esophagogastroduodenoscopy with multiple biopsies and balloon dilation of gastroesophageal junction. ESTIMATED BLOOD LOSS: COMPLICATIONS: ANESTHESIA: Monitored anesthesia care. ASSISTANTS: SPECIMENS: PREOPERATIVE DIAGNOSES: Dysphagia and abnormal barium swallow. POSTOPERATIVE DIAGNOSES: Dysphagia and abnormal barium swallow, esophagitis, small hiatal hernia, gastritis, duodenitis, rule out celiac disease. DESCRIPTION OF PROCEDURE: The patient was placed in the left lateral decubitus position. The Olympus video gastroscope was passed in the posterior oropharynx and upper esophagus under direct vision. The scope was passed slowly into the distal esophagus. The gastroesophageal junction appeared at 39 cm. At this level, there was evidence of edema, erythema, some friability, and an approximately 10 mm erosion. There was no definitive evidence of [place] mucosa. With insufflation of air, there did not appear to be any definitive stricture nor ring, and the scope easily entered into the stomach. There was a small hiatal hernia. The scope was advanced to the pylorus, and the duodenum was cannulated to the descending portion. The duodenum including the bulb was carefully inspected. The duodenal bulb had multiple erosions. There was no ulceration. The second and third portions of duodenum appeared normal. Biopsies were obtained from the second and third portions of duodenum. The scope was withdrawn back to the stomach. The gastric antrum had areas of erythema, edema, and friability consistent with gastritis. There was good peristalsis. There was no evidence of any ulceration nor mass. Biopsies were obtained from the antrum. The scope was retroflexed visualizing the proximal stomach carefully, which appeared normal, without any sign of mass or ulceration. The scope was straightened and withdrawn back to the esophagus. I did use a [employer] incremental balloon to dilate the gastroesophageal junction from 15 mm to 16.5 mm to just below 18 mm. The balloons were inflated for between 30 and 60 seconds each. Post dilation, there was some mild amount of heme noted. I did obtain biopsies at the EG junction at 39 cm as well. Proximal to this, the esophageal mucosa appeared normal. The scope was withdrawn from the patient. He tolerated the procedure well and was returned to the recovery area in stable condition. IMPRESSION: 1. Erosive esophagitis. 2. Hiatal hernia. 3. Gastritis. 4. Duodenitis. 5. Rule out celiac disease. PLAN: The results of the biopsies will be checked. I shall start him on omeprazole 40 mg daily given these findings. I do feel he probably has a component of some reflux and esophageal spasm contributing to his intermittent dysphagia. Depending upon his clinical course, we may want to repeat the endoscopy to assess for healing and any need for further dilation. If things are stable, he will see me in several months for a followup visit. He was advised not to use any aspirin or NSAIDs for 1 week. He was advised to continue his p.r.n. dicyclomine in regard to the intermittent diarrhea and irritable bowel syndrome. He was advised not to use any aspirin and NSAIDs for at least a week. MD EKATERINA Tadeo/NURYSL / [phone]
== END 2023-11-05 15:29 | disposition home or self-care (01) ==
PROVIDERS: PCP Internal Medicine; Visit Provider Internal Medicine
PROC: (CPT 43249; principal; 2023-11-05 13:50)
DX: R13.10 Dysphagia, unspecified (principal); K20.80 Other esophagitis without bleeding; K29.70 Gastritis, unspecified, without bleeding; K29.80 Duodenitis without bleeding; K44.9 Diaphragmatic hernia without obstruction or gangrene; Z80.1 Family history of malignant neoplasm of trachea, bronchus and lung; I48.91 Unspecified atrial fibrillation; E78.5 Hyperlipidemia, unspecified; K58.9 Irritable bowel syndrome, unspecified; Z79.899 Other long term (current) drug therapy; Z98.890 Other specified postprocedural states; Z87.891 Personal history of nicotine dependence
CPT/HCPCS: 43249; 43239; 88305; 88313; 88342; C1726; J1596; J2704

== ENCOUNTER 2023-12-26 10:11 | Outpatient (AMB) | payer MEDICARE, SELFPAY ==
--- NOTE | 2023-12-26 10:36 | A.OFFPC_ITS ---
Vital Signs 12/26/23 10:37 Height 5 ft 9 in Weight 178 lb BMI 26.3 BP 114/78 Blood Pressure Location Lt brachial Position Sitting Pulse 93 Pulse Source Pulse Oximeter Pulse Oximetry (%) 97 Oxygen Delivery Method Room Air Intake Visit Reasons: Hand Numbness Allergies No Known Allergies [No Known Allergies*] Allergy (Verified 12/26/23 12:29) Tobacco use date assessed: 04/05/23 Fall risk assessment: No Falls in past year Last assessed Fall Risk: 12/26/23 Dental Screening Dental Screen Date: 04/05/23 HPI Hand Numbness HPI Details 68-year-old overweight male with atrial fibrillation hypercholesterolemia BPH hand numbness coming in for follow-up. Last seen after physical exam in 09/01/2023. EMG showing bilateral moderate to severe median neuropathy, bilateral ulnar neuropathy no brachial plexopathy or cervical radiculopathy. Colon test is up-to-date 2020 patient had EGD done with dilatation 11/02/[address] Hawkins diagnosis of erosive esophagitis hiatal hernia duodenitis gastritis advised to stay away from NSAIDs.. Patient has been seen by the Orthopedics in October 22 for the carpal tunnel syndrome right si de surgery is planned. Patient did have some x-rays of the hand and wrist showing multi joint arthritic changes greatest along the left 1st carpometacarpal joint. HAD INJECTION on the R hand but not better. has scheduled with [facility] 01/23/2024 willhave both injections. had diarrhea also PFSH Medical History (Updated 12/26/23 @ 14:58 by Robni Bello MD) Dysphagia IBS (irritable bowel syndrome) Hyperlipidemia BPH (benign prostatic hyperplasia) Paroxysmal atrial fibrillation Surgical History Hx of transurethral resection of prostate H/O neck surgery Hx of vasectomy Hx of hernia repair History of radiofrequency ablation (RFA) procedure for cardiac arrhythmia Hx of hemorrhoidectomy History of tonsillectomy and adenoidectomy Family History (Updated 12/26/23 @ 10:38 by Lakesha Bliss CMA) Father Cancer Lung cancer Mother Cancer Lung cancer Paternal Uncle Lung cancer Paternal Aunt Lung cancer Maternal Grandfather Rectal cancer Social History (Updated 11/01/23 @ 15:01 by Billie Guzman RN) Household Members: Spouse Are you a primary child day care teacher to a significant other at home: No Do you presently have visiting nurse or other home services: No Alcohol intake: current Alcohol intake frequency: 0-2 drinks per day Patient Tobacco Use Status: Former Tobacco user Tobacco use type: Cigarette Years Smoked: quit 1999 14 years old start 2-3 pack aday marijuana e-Cigarette/Vaping Use: Never Used Second Hand Smoke Exposure: No Substance Use Type: Marijuana Advance Directives: No Advance Directives Information Provided: Yes Do you have a plan to hurt others: No Plan service: No Current occupational status: retired Current occupation: right hand dominant Cognitive needs: No Hearing needs: No Vision needs: No Questionnaire PHQ-9 Over the last 2 weeks, how often have you been bothered by any of the following problems? Depression Screening Interpretation: Negative Depression Screening Done: Yes Source: Developed by Drs. Sukhdev Jama, Yolie Hopson, Rafy Dc and colleagues, with an educational mario from [employer]. Thrive Questionnaire Date Thrive assessed: 04/05/23 AUDIT C Alcohol Use Questionnaire (AUDIT-C) 1. How often do you have a drink containing alcohol?: 4 or more times a week (beer ) 2. How many drinks containing alcohol do you have on a typical day when you are drinking?: 3 or 4 3. How often do you have six or more drinks on one occasion?: Never Total Score: 5 SRIRAM-7 AMB Questionnaire SRIRAM-7 Date SRIRAM - 7 assessed: 04/05/23 Source: Developed by Drs. Sukhdev Jama, Yolie Hopson, Rafy Dc and colleagues, with an educational mario from [employer]. Physical exam (Primary Care) Vital Signs: Last Vital Signs Pulse 93 12/26/23 10:37 BP 114/78 12/26/23 10:37 Pulse Ox 97 12/26/23 10:37 Oxygen Delivery Method Room Air 12/26/23 10:37 BMI result Body Mass Index 26.3 Tobacco/Smoking Status: Tobacco use Status Tobacco use date assessed 04/05/23 12/26/23 10:44 Patient Tobacco Use Status Former Tobacco user 12/26/23 10:44 Tobacco use type Cigarette 12/26/23 10:44 e-Cigarette/Vaping Use Never Used 12/26/23 10:44 Depression Screening Interpretation: Negative Thrive Assessment: Date of Thrive Assessment Date Thrive assessed 04/05/23 12/26/23 10:44 Const General: alert; No acute distress Eyes Conjunctivae: conjunctivae normal Resp Auscultation: clear to auscultation bilaterally Cardio Other: irregular rate and rhythm Rhythm: abnormal rhythm GI Inspection: Yes normal to inspection Extrem General: Yes normal to inspection and No edema Coding Level of Care Code Est Pt Level 4 (25607) Diagnoses Cubital tunnel syndrome, bilateral G56.23 Hypercholesterolemia E78.00 Erosive gastritis K29.60 Paroxysmal atrial fibrillation I48.0 Assessment & Plan Assessment & Plan (1) Cubital tunnel syndrome, bilateral: Code(s): G56.23 - Lesion of ulnar nerve, bilateral upper limbs Category: Medical Plan: Patient has met with Orthopedics and has a planned procedure for the right carpal tunnel syndrome (2) Hypercholesterolemia: Code(s): E78.00 - Pure hypercholesterolemia, unspecified Category: Medical Plan: Avoid fried foods, chicken skin, eggs, butter margarine, pastries and meat. Be it pork or beef they have a lot of cholesterol on atorvastatin 10 mg once a day LDL goal of less than 130 and triglyceride of less than 150 (3) Erosive gastritis: Code(s): K29.60 - Other gastritis without bleeding Category: Medical Plan: Patient on omeprazole. Avoid the foods that causes that usually spicy foods, tomato products, juices, coffee, soda and foods that your sensitive to. After eating do not lie down, allow 3-4 hours before in lie down. And keep the head of bed above 30 degrees to avoid the acid from going up. (4) Paroxysmal atrial fibrillation: Comment: Cardioversion Dr. [place] 1999 Code(s): I48.0 - Paroxysmal atrial fibrillation Category: Medical Plan: Patient has been advised to do an EKG Orders: Orders Complete Blood Count Auto Diff Today I48.0 - Paroxysmal atrial fibrillation Comprehensive Met. Panel Today I48.0 - Paroxysmal atrial fibrillation Magnesium Today I48.0 - Paroxysmal atrial fibrillation UA CC w/rflx Micro + Cult Today I48.0 - Paroxysmal atrial fibrillation, R30.0 - Dysuria ECG 12 lead EKG Today I48.0 - Paroxysmal atrial fibrillation Free T4 (Free Thyroxine) Today I48.0 - Paroxysmal atrial fibrillation Thyroid Stimulating Hormone Today I48.0 - Paroxysmal atrial fibrillation Vitamin B12 and Folate Today I48.0 - Paroxysmal atrial fibrillation Referrals Cardiology Referral I48.0 - Paroxysmal atrial fibrillation
[2023-12-26 10:37] VITALS: BP 114/78; PULSE 93; O2SAT 97; BMI 26.3
== END 2023-12-26 11:43 | disposition home or self-care (01) ==
PROVIDERS: PCP Internal Medicine; Visit Provider Internal Medicine
DX: G56.23 Lesion of ulnar nerve, bilateral upper limbs (principal); E78.00 Pure hypercholesterolemia, unspecified; K29.60 Other gastritis without bleeding; I48.0 Paroxysmal atrial fibrillation

== ENCOUNTER → 2023-12-26 10:11 | Outpatient (REF) | payer MEDICARE, SELFPAY ==
--- NOTE | 2023-12-26 11:59 | ECG_ITS ---
Test Reason : PAF Blood Pressure : / mmHG Vent. Rate : 108 BPM Atrial Rate : 000 BPM P-R Int : 000 ms QRS Dur : 092 ms QT Int : 342 ms P-R-T Axes : 000 -46 011 degrees QTc Int : 458 ms Atrial fibrillation with rapid ventricular response Left axis deviation Pulmonary disease pattern Nonspecific ST abnormality Abnormal ECG When compared with ECG of 19-DEC-2017 12:46, Atrial fibrillation Present Referred By: Tal Cuellar Electronically Signed By:Edmar Osullivan
== END ==
LOC: HO.CARD 10:11
PROVIDERS: PCP Internal Medicine; Visit Provider Internal Medicine
DX: I48.0 Paroxysmal atrial fibrillation (principal)
CPT/HCPCS: 93005; 99212

== ENCOUNTER → 2023-12-26 11:59 | Outpatient (BNV) | payer MEDICARE, SELFPAY | PROVIDERS: PCP Internal Medicine; Visit Provider Internal Medicine Cardiovascular Disease | DX: I48.91 Unspecified atrial fibrillation (principal); I49.3 Ventricular premature depolarization; I44.4 Left anterior fascicular block; I45.19 Other right bundle-branch block | CPT/HCPCS: 93010 ==

== ENCOUNTER 2023-12-26 12:17 | Emergency (ER) | payer MEDICARE, SELFPAY ==
--- NOTE | 2023-12-26 12:20 | ECG_ITS ---
Test Reason : high bp Blood Pressure : / mmHG Vent. Rate : 106 BPM Atrial Rate : 000 BPM P-R Int : 000 ms QRS Dur : 096 ms QT Int : 340 ms P-R-T Axes : 000 -49 007 degrees QTc Int : 451 ms Atrial fibrillation with rapid ventricular response with premature ventricular or aberrantly conducted complexes Pulmonary disease pattern Incomplete right bundle branch block Left anterior fascicular block Cannot rule out Inferior infarct (masked by fascicular block?) , age undetermined Abnormal ECG When compared with ECG of 26-DEC-2023 11:59, No significant change was found Referred By: Generic ED Physician Electronically Signed By:Edmar Osullivan
[2023-12-26 12:25] VITALS: BP 116/88; PULSE 82; RESP 19; TEMP 36.6; O2SAT 97; BMI 26.3
--- NOTE | 2023-12-26 12:26 | ED.GENADULT ---
HPI - General Adult General Chief complaint: Arrhythmia/Palpitations Stated complaint: Afib Sent By Dr Cuellar Time Seen by Provider: 12/26/23 13:59 History of Present Illness HPI narrative: Seen by Dr. Bello. Related Data Home Medications ?Medication ?Instructions ?Recorded ?Confirmed cholecalciferol (vitamin D3) 25 25 mcg PO DAILY 01/30/20 11/01/23 mcg (1,000 unit) capsule dicyclomine 10 mg capsule 10 mg PO TID 10/23/23 11/05/23 omeprazole 40 mg capsule,delayed 40 mg PO DAILY 12/26/23 release Previous Rx's ?Medication ?Instructions ?Recorded atorvastatin 10 mg tablet 10 mg PO DAILY #90 tabs 10/12/23 metoprolol tartrate 25 mg tablet 25 mg PO DAILY #30 tabs 12/26/23 Allergies Allergy/AdvReac Type Severity Reaction Status Date / Time No Known Allergies Allergy Verified 12/26/23 12:29 [No Known Allergies*] PMFSH Past Medical History Medical History (Updated 12/27/23 @ 00:02 by Anitha Rodriguez) Dysphagia IBS (irritable bowel syndrome) Hyperlipidemia BPH (benign prostatic hyperplasia) Paroxysmal atrial fibrillation Surgical History Hx of transurethral resection of prostate H/O neck surgery Hx of vasectomy Hx of hernia repair History of radiofrequency ablation (RFA) procedure for cardiac arrhythmia Hx of hemorrhoidectomy History of tonsillectomy and adenoidectomy Family History Family History (Updated 12/26/23 @ 10:38 by Lakesha Bliss CMA) Father Cancer Lung cancer Mother Cancer Lung cancer Paternal Uncle Lung cancer Paternal Aunt Lung cancer Maternal Grandfather Rectal cancer Social History Social History (Updated 11/01/23 @ 15:01 by Billie Guzman RN) Household Members: Spouse Are you a primary resident care provider to a significant other at home: No Do you presently have visiting nurse or other home services: No Alcohol intake: current Alcohol intake frequency: 0-2 drinks per day Patient Tobacco Use Status: Former Tobacco user Tobacco use type: Cigarette Years Smoked: quit 1999 14 years old start 2-3 pack aday marijuana e-Cigarette/Vaping Use: Never Used Second Hand Smoke Exposure: No Substance Use Type: Marijuana service: No Current occupational status: retired Current occupation: right hand dominant Cognitive needs: No Hearing needs: No Vision needs: No Physical Exam ED Vital Signs: Vital Signs - 24 hr 12/26/23 12:25 12/26/23 14:23 12/26/23 14:27 Temperature 98 F 97.9 F Pulse Rate 82 93 93 Respiratory Rate 19 18 Blood Pressure 116/88 115/89 115/89 Pulse Oximetry 97 97 Oxygen Delivery Method Room Air 12/26/23 15:14 Temperature 97.9 F Pulse Rate 90 Respiratory Rate 18 Blood Pressure 115/89 Pulse Oximetry 98 Oxygen Delivery Method Room Air BMI result Body Mass Index 26.3 Course Course Course Narrative: RME: 68 yold male with pmh of afib presents to the ED afib from [facility]. patient sent by PCP. patient states feeling off is PCP did an EKG which showed Afib, so patient came to the ED. patient denies any chest pain or shorntess of breath. labs, EKG ordered. Patient well appearing. Patient is not on any blood thinners or rate control meds. AFib rate control in [facility] Medications Administered Discontinued Medications Generic Name Dose Route Start Last Admin Trade Name Freq PRN Reason Stop Dose Admin Metoprolol Tartrate 25 mg 12/26/23 14:19 12/26/23 14:27 Metoprolol Tartrate 25 Mg Tablet PO 12/26/23 14:20 25 mg ONCE ONE Administration Protocol Medical Decision Making Lab Data 12/26/23 12:35 12/26/23 12:35 Labs: Lab Results 12/26/23 Range/Units 12:35 WBC 7.7 (4.8-10.8) X10*3/uL RBC 5.35 (4.60-5.80) X10*6/uL Hgb 17.2 (14.0-18.0) g/dl Hct 48.1 (42.0-52.0) % MCV 89.9 (80.0-98.0) fL MCH 32.1 (27.0-33.0) pg MCHC 35.8 (31.0-36.0) g/dl RDW 12.3 (11.0-16.0) % Plt Count 171 (160-400) X10*3/uL MPV 8.8 L (9.4-12.4) fL Immature Gran % (Auto) 0.5 H (0.0-0.4) % Neut % (Auto) 71.5 (45-73) % Lymph % (Auto) 12.5 L (20-40) % [place] % (Auto) 14.4 H (2-11) % Eos % (Auto) 0.6 (0-4) % Baso % (Auto) 0.5 (0-2) % Lymph # (Auto) 1.0 L (1.2-4.9) X10*3/uL [place] # (Auto) 1.1 (0.1-1.2) X10*3/uL Eos # (Auto) 0.1 (0.0-0.4) X10*3/uL Baso # (Auto) 0.0 (0.0-0.2) X10*3/uL Abs Immat Gran (auto) 0.04 H (0.00-0.03) X10*3/uL Absolute Neuts (auto) 5.5 (2.0-8.3) x10*3/uL Absolute Nucleated RBC 0.000 (0.0-0.012) X10*3/uL Nucleated RBC % (auto) 0.0 (0.0-0.2) /100WBC PT 10.8 L (10.9-12.4) SEC INR 0.9 (0.9-1.1) APTT 29.5 (26.0-36.8) SEC Sodium 137 (135-145) mmol/L Potassium 3.5 (3.3-5.1) mmol/L Chloride 105 (96-108) mmol/L Carbon Dioxide 20 L (22-29) mmol/L Anion Gap 16 (12-20) BUN 9 (9-16) mg/dL Creatinine 0.81 (0.5-1.4) mg/dL Estim Creat Clear Calc 84.8 Estimated GFR > 60 Random Glucose 114 (60-115) mg/dL Calcium 9.7 (8.4-10.2) mg/dL Total Bilirubin 0.7 (0.0-1.0) mg/dL AST 37 (5-37) U/L ALT 24 (0-40) U/L Alkaline Phosphatase 82 (39-117) U/L Troponin I High Sens 14.1 (<3.5-35.0) ng/L Total Protein 7.7 (6.5-8.0) g/dL Albumin 4.3 (3.5-5.0) g/dL TSH 3.05 (0.32-4.0) uIU/mL Discharge Plan Discharge Clinical Impression: Atrial fibrillation Patient Disposition: Home, Self-Care Instructions: A-fib (Atrial Fibrillation) (ED) Additional Instructions: You were seen and evaluated in the emergency room for atrial fibrillation. Your vital signs and blood work were reassuring. A prescription for a beta jesús to control your heart rate has been sent to your pharmacy. Please start this medication tomorrow morning and take as directed. Please follow-up with your grant administrator and primary care doctor for further evaluation. Please follow up in the next 1-2 weeks. Return to the emergency room with any new concerns or symptoms. Prescriptions: New metoprolol tartrate 25 mg tablet 25 mg PO DAILY Qty: 30 0RF No Action atorvastatin 10 mg tablet 10 mg PO DAILY Qty: 90 0RF cholecalciferol (vitamin D3) 25 mcg (1,000 unit) capsule 25 mcg PO DAILY dicyclomine 10 mg capsule 10 mg PO TID omeprazole 40 mg capsule,delayed release(DR/EC) 40 mg PO DAILY Interventions: ED Discharge Assessment Last Done: 12/26/23 15:14 Discharge Date/Time: 12/26/23 15:15 Print Language: Trinidadian
[2023-12-26 12:42] LABS: MANUAL DIFF FLAG NO
[2023-12-26 12:44] LABS: Basophils Percent Auto 0.5 % (0-2); Eosinophils Absolute Auto 0.1 X10*3/uL (0.0-0.4); Eosinophils Percent Auto 0.6 % (0-4); Hematocrit 48.1 % (42.0-52.0); Hemoglobin 17.2 g/dl (14.0-18.0); Imm Gran Abs Auto 0.04 X10*3/uL (0.00-0.03); Imm Gran Pct Auto 0.5 % (0.0-0.4); Lymphocytes Percent Auto 12.5 % (20-40); Mean Corpuscular HGB Conc 35.8 g/dl (31.0-36.0); Mean Corpuscular Hemoglobin 32.1 pg (27.0-33.0); Mean Corpuscular Volume 89.9 fL (80.0-98.0); Mean Platelet Volume 8.8 fL (9.4-12.4); Monocytes Absolute Auto 1.1 X10*3/uL (0.1-1.2); Monocytes Percent Auto 14.4 % (2-11); Neutrophils Absolute Auto 5.5 x10*3/uL (2.0-8.3); Neutrophils Percent Auto 71.5 % (45-73); Platelet Count 171 X10*3/uL (160-400); Red Blood Count 5.35 X10*6/uL (4.60-5.80); Red Cell Distribution Width 12.3 % (11.0-16.0); White Blood Count 7.7 X10*3/uL (4.8-10.8)
[2023-12-26 12:50] LABS: INTERNATIONAL NORM RATIO 0.9 (0.9-1.1); Prothrombin Time 10.8 SEC (10.9-12.4)
[2023-12-26 12:52] LABS: Partial Thromboplastin Time 29.5 SEC (26.0-36.8)
[2023-12-26 13:03] LABS: Alanine Aminotransferase 24 U/L (0-40); Albumin Level 4.3 g/dL (3.5-5.0); Alkaline Phosphatase 82 U/L (39-117); Anion Gap 16 (12-20); Aspartate Amino Transferase 37 U/L (5-37); Bilirubin Total 0.7 mg/dL (0.0-1.0); Blood Urea Nitrogen 9 mg/dL (9-16); Calcium 9.7 mg/dL (8.4-10.2); Carbon Dioxide 20 mmol/L (22-29); Chloride 105 mmol/L (96-108); Creatinine Clr Calc Pharmacy 84.8; Estimated Glomerular Filt Rate > 60; Glucose Random 114 mg/dL (60-115); Potassium 3.5 mmol/L (3.3-5.1); Sodium 137 mmol/L (135-145); Total Protein 7.7 g/dL (6.5-8.0); Troponin-I High Sensitivity 14.1 ng/L (<3.5-35.0)
[2023-12-26 13:17] LABS: TSH reflex Free T4 3.05 uIU/mL (0.32-4.0)
--- NOTE | 2023-12-26 14:06 | ED.GENADULT ---
[facility] - General Adult General Chief complaint: Arrhythmia/Palpitations Stated complaint: Afib Sent By Dr Cuellar Time Seen by Provider: 12/26/23 13:59 Source: patient Mode of arrival: ambulatory Limitations: no limitations History of Present Illness HPI narrative: This is a 68-year-old man with a past medical history of hyperlipidemia, IBS, BPH, paroxysmal atrial fibrillation (history of ablation 2018), bilateral median neuropathy and bilateral ulnar neuropathy presents for evaluation atrial fibrillation. Patient states that he was following up with is primary care doctor today. He endorses palpitations this morning he has associated lightheadedness. He states that he went to his primary care doctor for routine visit and states that he was found to be in atrial fibrillation again. He states he has had atrial fibrillation a few times. He states that he was previously on blood thinning medication, but states that he is no longer on any blood thinning agents. He states that his make ready worker stopped this because he was no longer in atrial fibrillation. He states he does not take any heart rate controlling medications are added. He states no history of congestive heart failure, hypertension stroke/TIA/notable embolism, history of diabetes or history of vascular disease. He states otherwise no fevers, chills, cough or hemoptysis. He states no chest pain or dyspnea. He states no loss of consciousness. He states no exertional symptoms. He states no abdominal pain or back pain. He states no trauma. He states no GI or symptoms. Related Data Home Medications ?Medication ?Instructions ?Recorded ?Confirmed cholecalciferol (vitamin D3) 25 25 mcg PO DAILY 01/30/20 11/01/23 mcg (1,000 unit) capsule dicyclomine 10 mg capsule 10 mg PO TID 10/23/23 11/05/23 omeprazole 40 mg capsule,delayed 40 mg PO DAILY 12/26/23 release Previous Rx's ?Medication ?Instructions ?Recorded atorvastatin 10 mg tablet 10 mg PO DAILY #90 tabs 10/12/23 metoprolol tartrate 25 mg tablet 25 mg PO DAILY #30 tabs 12/26/23 Allergies Allergy/AdvReac Type Severity Reaction Status Date / Time No Known Allergies Allergy Verified 12/26/23 12:29 [No Known Allergies*] Review of Systems Review of Systems: ROS as per [facility] Past Medical History Medical History (Updated 12/26/23 @ 14:58 by Robin Bello MD) Dysphagia IBS (irritable bowel syndrome) Hyperlipidemia BPH (benign prostatic hyperplasia) Paroxysmal atrial fibrillation Surgical History Hx of transurethral resection of prostate H/O neck surgery Hx of vasectomy Hx of hernia repair History of radiofrequency ablation (RFA) procedure for cardiac arrhythmia Hx of hemorrhoidectomy History of tonsillectomy and adenoidectomy Family History Family History (Updated 12/26/23 @ 10:38 by Lakesha Bliss CMA) Father Cancer Lung cancer Mother Cancer Lung cancer Paternal Uncle Lung cancer Paternal Aunt Lung cancer Maternal Grandfather Rectal cancer Social History Social History (Updated 11/01/23 @ 15:01 by Billie Guzman RN) Household Members: Spouse Are you a primary palliative care nurse practitioner to a significant other at home: No Do you presently have visiting nurse or other home services: No Alcohol intake: current Alcohol intake frequency: 0-2 drinks per day Patient Tobacco Use Status: Former Tobacco user Tobacco use type: Cigarette Years Smoked: quit 1999 14 years old start 2-3 pack aday marijuana e-Cigarette/Vaping Use: Never Used Second Hand Smoke Exposure: No Substance Use Type: Marijuana Advance Directives: No Advance Directives Information Provided: Yes Do you have a plan to hurt others: No Plan service: No Current occupational status: retired Current occupation: right hand dominant Cognitive needs: No Hearing needs: No Vision needs: No Physical Exam ED Vital Signs: Vital Signs - 24 hr 12/26/23 12:25 12/26/23 14:23 12/26/23 14:27 Temperature 98 F 97.9 F Pulse Rate 82 93 93 Respiratory Rate 19 18 Blood Pressure 116/88 115/89 115/89 Pulse Oximetry 97 97 Oxygen Delivery Method Room Air BMI result Body Mass Index 26.3 Gen: NAD, AOx3 HEENT: NCAT, EOMI, normal conjunctiva CV: irregular rhythm, regular rate Pulm: CTAB, no increased work of breathing GI: Soft, NTND Neuro: Grossly non focal Medications Administered Discontinued Medications Generic Name Dose Route Start Last Admin Trade Name Freq PRN Reason Stop Dose Admin Metoprolol Tartrate 25 mg 12/26/23 14:19 12/26/23 14:27 Metoprolol Tartrate 25 Mg Tablet PO 12/26/23 14:20 25 mg ONCE ONE Administration Protocol Medical Decision Making Admission/Observation Consideration of admission/observation: Escalation of care including admission/observation considered Lab Data MDM Lab Attestation statement: I reviewed the patient's lab results. Differential diagnosis includes, but is not limited to palpitations, arrhythmia, electrolyte abnormality. Patient is afebrile and hemodynamically stable on room air. Exam is benign and reassuring. CHADS2 Vasc score 1 with a 0.6% risk per year. I discussed this with the patient. There is no indication for anticoagulation at this time patient states that he does not want any blood thinning medications at this time. He is aware to follow up with his make ready worker and primary care physician regarding this decision. Further, discussed need to follow up given potential rate-controlling regimen titration. I reviewed the patient's labs including CBC, metabolic panel and TSH as below, which are benign and reassuring. I reviewed EKGs as below consistent with atrial fibrillation and rapid ventricular response with ventricular rate in the low 100s. Patient is provided 25 mg p.o. metoprolol tartrate. On re-examination, patient is well-appearing and in no acute distress. ?Patient states symptoms have resolved. ?There is no indication for further emergent evaluation in this otherwise well-appearing patient as above. ?Patient is provided written and verbal instructions, educational materials, recommendations for outpatient follow-up, prescription for metoprolol tartrate, strict return precautions and teach back is performed. ?Patient states understanding and agreement with plan of care. ?Patient is discharged home in stable and improved condition. 12/26/23 12:35 12/26/23 12:35 Labs: Lab Results 12/26/23 Range/Units 12:35 WBC 7.7 (4.8-10.8) X10*3/uL RBC 5.35 (4.60-5.80) X10*6/uL Hgb 17.2 (14.0-18.0) g/dl Hct 48.1 (42.0-52.0) % MCV 89.9 (80.0-98.0) fL MCH 32.1 (27.0-33.0) pg MCHC 35.8 (31.0-36.0) g/dl RDW 12.3 (11.0-16.0) % Plt Count 171 (160-400) X10*3/uL MPV 8.8 L (9.4-12.4) fL Immature Gran % (Auto) 0.5 H (0.0-0.4) % Neut % (Auto) 71.5 (45-73) % Lymph % (Auto) 12.5 L (20-40) % [place] % (Auto) 14.4 H (2-11) % Eos % (Auto) 0.6 (0-4) % Baso % (Auto) 0.5 (0-2) % Lymph # (Auto) 1.0 L (1.2-4.9) X10*3/uL [place] # (Auto) 1.1 (0.1-1.2) X10*3/uL Eos # (Auto) 0.1 (0.0-0.4) X10*3/uL Baso # (Auto) 0.0 (0.0-0.2) X10*3/uL Abs Immat Gran (auto) 0.04 H (0.00-0.03) X10*3/uL Absolute Neuts (auto) 5.5 (2.0-8.3) x10*3/uL Absolute Nucleated RBC 0.000 (0.0-0.012) X10*3/uL Nucleated RBC % (auto) 0.0 (0.0-0.2) /100WBC PT 10.8 L (10.9-12.4) SEC INR 0.9 (0.9-1.1) APTT 29.5 (26.0-36.8) SEC Sodium 137 (135-145) mmol/L Potassium 3.5 (3.3-5.1) mmol/L Chloride 105 (96-108) mmol/L Carbon Dioxide 20 L (22-29) mmol/L Anion Gap 16 (12-20) BUN 9 (9-16) mg/dL Creatinine 0.81 (0.5-1.4) mg/dL Estim Creat Clear Calc 84.8 Estimated GFR > 60 Random Glucose 114 (60-115) mg/dL Calcium 9.7 (8.4-10.2) mg/dL Total Bilirubin 0.7 (0.0-1.0) mg/dL AST 37 (5-37) U/L ALT 24 (0-40) U/L Alkaline Phosphatase 82 (39-117) U/L Troponin I High Sens 14.1 (<3.5-35.0) ng/L Total Protein 7.7 (6.5-8.0) g/dL Albumin 4.3 (3.5-5.0) g/dL TSH 3.05 (0.32-4.0) uIU/mL Independent Interpretation I performed an independent interpretation of an: EKG Interpretation: I independently reviewed and interpreted patient's EKG, which demonstrates atrial fibrillation at 106 beats per minute, QRS 96, QTC 451, no STEMI I independently reviewed and interpreted the patient's 2nd EKG, which demonstrates atrial fibrillation at 102 beats per minute, QRS 90, QTC 466, no STEMI, PVC x1 Discharge Plan Discharge Clinical Impression: Atrial fibrillation Patient Disposition: Home, Self-Care Instructions: [place]-fib (Atrial Fibrillation) (ED) Additional Instructions: You were seen and evaluated in the emergency room for atrial fibrillation. Your vital signs and blood work were reassuring. A prescription for a beta jesús to control your heart rate has been sent to your pharmacy. Please start this medication tomorrow morning and take as directed. Please follow-up with your make ready worker and primary care doctor for further evaluation. Please follow up in the next 1-2 weeks. Return to the emergency room with any new concerns or symptoms. Prescriptions: New metoprolol tartrate 25 mg tablet 25 mg PO DAILY Qty: 30 0RF No Action atorvastatin 10 mg tablet 10 mg PO DAILY Qty: 90 0RF cholecalciferol (vitamin D3) 25 mcg (1,000 unit) capsule 25 mcg PO DAILY dicyclomine 10 mg capsule 10 mg PO TID omeprazole 40 mg capsule,delayed release(DR/EC) 40 mg PO DAILY Print Language: [place] Verdean
[2023-12-26 14:23] VITALS: BP 115/89; PULSE 93; RESP 18; TEMP 36.6; O2SAT 97
[2023-12-26 14:27] VITALS: BP 115/89; PULSE 93
[2023-12-26] MEDS: Metoprolol Tartrate 25 MG TABLET PO (14:27)
--- NOTE | 2023-12-26 14:32 | ECG_ITS ---
Test Reason : PALPITATIONS Blood Pressure : / mmHG Vent. Rate : 102 BPM Atrial Rate : 000 BPM P-R Int : 000 ms QRS Dur : 090 ms QT Int : 358 ms P-R-T Axes : 000 -41 -07 degrees QTc Int : 466 ms Atrial fibrillation with rapid ventricular response with premature ventricular or aberrantly conducted complexes Left axis deviation Nonspecific ST abnormality Abnormal ECG When compared with ECG of 26-DEC-2023 12:14, No significant change was found Referred By: Robin Bello Electronically Signed By:Edmar Osullivan
[2023-12-26 15:14] VITALS: BP 115/89; PULSE 90; RESP 18; TEMP 36.6; O2SAT 98
== END 2023-12-26 15:15 | disposition home or self-care (01) ==
PROVIDERS: Physician Assistant; Emergency Provider Emergency Medicine; PCP Internal Medicine
DX: I48.91 Unspecified atrial fibrillation (principal); I49.9 Cardiac arrhythmia, unspecified; R00.2 Palpitations; Z79.899 Other long term (current) drug therapy
CPT/HCPCS: 36415; 80053; 84443; 84484; 85025; 85610; 85730; 93005; 99283; 99285

== ENCOUNTER → 2024-01-18 10:49 | Outpatient (REF) | payer MEDICARE, SELFPAY ==
--- NOTE | 2024-01-18 10:54 | CA_ITS ---
Transthoracic Echocardiogram Patient (Last, First, Middle): Kristopher Basurto G Gender: Male Date of : 1955 Age: 68 Procedure Date: 01/18/2024 Procedure Type: Transthoracic Echocardiogram Location: OP Height: 175.26 cm Weight: 80.74 kg BSA: 1.97 m2 Heart Rate: 55 bpm BP: 114 / 78 mmHg Concrete Tester: MP Referring MD: Robson Boston MD Symptoms: I48.0 - Paroxysmal atrial fibrillation Study Quality: Adequate ECG Rhythm: Bradycardia Conclusions: - Normal left ventricular size and systolic function. The visually estimated ejection fraction is between 65-70%. There is no evidence of regional wall motion abnormalities. Diastolic function is normal for age. - Severely increased right ventricular cavity size. There is normal right ventricular systolic function. - The left atrium is mildly dilated. The right atrium is severely dilated. - There is mild dilatation of the sinuses of Valsalva measuring 4.30 cm and mild dilatation of the ascending aorta. Findings Left Ventricle Normal left ventricular size and systolic function. The visually estimated ejection fraction is between 65-70%. There is no evidence of regional wall motion abnormalities. Diastolic function is normal for age. Right Ventricle Severely increased right ventricular cavity size. There is normal right ventricular systolic function. Atria The left atrium is mildly dilated. The right atrium is severely dilated. Aortic Valve Normal aortic valve structure and function. There is no aortic valve stenosis. There is no aortic valve regurgitation. Mitral Valve The mitral valve appears normal. There is trace mitral valve regurgitation. There is no mitral valve stenosis. Pulmonic Valve The pulmonic valve is likely normal. Tricuspid Valve Normal tricuspid valve structure. There is trace tricuspid valve regurgitation. Normal right atrial pressure. There is no evidence of pulmonary hypertension. Great Vessels There is mild dilatation of the sinuses of Valsalva measuring 4.30 cm and mild dilatation of the ascending aorta. The visualized portions of the pulmonary artery and branches are normal. Venous The inferior vena cava is normal in size and collapses greater than 50% with inspiration. Pericardium/Pleural There is no evidence of pericardial effusion. Prior Study Comparison No significant change compared to prior study dated: 02/26/2023. Measurements 2D Linear Measurements IVSd: 0.68 0.6-0.9/0.6-1.0 cm LVIDd: 5.41 3.9-5.3/4.2-5.9 cm LVIDd Index: 2.75 2.4-3.2/2.2-3.1 cm/m2 LVIDs: 3.21 2.0-3.6 cm LVPWd: 0.72 0.7-1.1 cm LA Diam: 4.40 2.7-3.8/3.0-4.0 cm LAIDs Index: 2.23 1.5-2.3 cm/m2 LV Mass: 163.35 67-162/88-224 g LV Mass Index: 82.92 43-95/49-115 g/m2 LVOT Diam: 2.40 3.0+(-)1.3 cm 2D Systolic Function EF 4C: 67.70 >55% EF 2C: 60.40 >55% EF BiP: 63.60 >55% Mitral Valve MV Pk E: 0.62 MV PK A: 0.30 MV Decel Time: 199.00 E/A: 2.10 E'Lateral: 9.79 E'Medial: 5.55 E/E' Med: 11.10 E/E' Lat: 6.30 PHT: 58.00 MVA PHT: 3.79 Decel Owsley: 3.11 Aortic Valve AoV Pk Hossein: 1.02 AoV Pk Grad: 4.00 CAR[place]INA: 4.06 LVOT LVOT Pk Hossein: 0.91 LVOT Mn Hossein: 0.64 LVOT VTI: 0.20 LVOT Pk Grad: 3.00 LVOT Mn Grad: 2.00 LVOT Diam: 2.40 LVOT Area: 4.52 Diastolic Function MV Pk E: 0.62 MV Pk A: 0.30 E/A: 2.10 E'Medial: 5.55 E/E' Med: 11.10 E' Laterial: 9.79 E/E' Lat: 6.30 Right Ventricle TAPSE (mm): 20.40 TVS' Hossein: 15.20 Tricuspid Valve TR Pk Hossein: 2.40 TR Pk Grad: 23.00 RA Press: 3.00 RVSP: 26.00 Great Vessels Aorta Sinus of Valsalva: 4.30 2.0-3.5 cm Ao Asc: 3.50 2.1-3.4 cm Pulmonary Valve PV Pk Hossein: 1.11 Peak PV Grad: 5.00 Updated in Other Vendor System with Status of Final Edmar Osullivan MD electronically signed on 01/20/2024 6:29:38 PM with status of Final
--- NOTE | 2024-01-18 10:54 | HM_ITS ---
* Total monitoring time 3 days. * Underlying rhythm is sinus with an average rate of 61/Min. * Rare supraventricular ectopy. Brief runs noted. * Rare ventricular ectopy. 2 very brief runs, longest 4 beats. * No significant pauses or high-grade AV blocks. * Patient marker used once in association with sinus rhythm. * No diary events. MTDD
--- OUTSIDE RECORDS SUMMARY | 2024-01-23 07:45 | XMS_ITS | Patient Health Record ---
Author Organization [facility] Address [address] [place] [address] Care Team Providers Care Bible Reader Name Role Phone Tal Cuellar MD Primary Care Provider Sukhdev Cai Unavailable [phone] Pascual Salmon MD Unavailable Unavailable ALLERGIES No Known Allergies RESULTS Component Value Reference Range Notes Pathology (Not yet reviewed by provider) Interpretation: Performing Lab:[facility], [address] [place] [phone] Notes/Report: REASON FOR REFERRAL No Information MEDICATIONS Medication SIG (Take, Route, Frequency, Duration) Notes Start Date End Date Status Vitamin D 25 MCG (1000 UT) 1 tablet Oral ly Once a day for 30 day(s) Active Dicyclomine HCl 10 MG 1 or 2 capsules Or ally Take 1 or 2 every morning on a daily and regular basis, and you can then take 30 minutes before meals to try to prevent having BM's for 30 day(s) 09/05/2023 Active Omeprazole 40 MG 1 Orally Once a day every morning for 30 day(s) 11/06/2023 Active Atorvastatin Calcium 10 MG Oral for 90 Active SOCIAL HISTORY Tobacco Use: Social History Observation Description Date Details (start date - stop date) Former Smoker NA - NA Sex Assigned At : Social History Observation Description Sex Assigned At Unknown Tobacco Use/Smoking Question Answer Notes Patient is a former smoker How long has it been since you last smoked? > 10 years Alcohol Screen Question Answer Notes Did you have a drink contain ing alcohol in the past year? Yes How often did you have a dri nk containing alcohol in the past year? 4 or more times a week (4 points) How many drinks did you have on a typical day when you were drinking in the past year? 1 or 2 drinks (0 point) Points 4 Interpretation Positive PROBLEMS Problem Type ICD Code Onset Dates Problem Status W/U Status Risk SNOMED Code Notes Problem IBS (irritable bowel syndrome) (K58.9) Active confirmed Irritable bowel syndrome (08252996) Problem Abnormal barium swallow (R93.3) Active confirmed Barium swallow abnormal (276625585) Problem Dysphagia (R13.10) Active confirmed Dysphagia (90917904) Problem Gastro-esophag eal reflux disease with esophagitis, without bleeding (K21.00) Active confirmed Gastroesophagea l reflux disease with esophagitis (disorder) (026523406) Problem Chronic gastritis (K29.50) Active confirmed Chronic gastrit is (5839732) Problem Duodenitis (K29.80) Active confirmed Duodenitis (21884320) VITAL SIGNS Blood pressure diastolic 00 mm Hg 09/04/2023 Height 5 ft 9 in in 09/04/2023 Blood pressure systolic 00 mm Hg 09/04/2023 Weight 175 lbs 09/04/2023 BMI 25.84 kg/m2 09/04/2023 Encounters Encounter Location Date Provider Diagnosis [facility] Outpatient [address] [place] [phone] 11/05/2023 Sukhdev Hawkins Gastro-esophageal reflux disease with esophagitis, without bleeding K21.00 ; Other diseases of stomach and duodenum K31.89 ; Hiatal hernia K44.9 ; Chronic gastritis K29.50 ; Duodenitis K29.80 and Abn findings-GI tract R93.3 [facility] [address] [place] [address] 09/04/2023 Sukhdev Hawkins IBS (irritable bowel syndrome) K58.9 ; Dysphagia R13.10 and Abnormal barium swallow R93.3 [facility] [address] [place] [address] 11/06/2023 Sukhdev Hawkins [facility] [address] [address] 11/13/2023 Sukhdev Hawkins ASSESSMENTS Encounter Date Diagnosis Assessment Notes Treatment Notes Treatment Clinical Notes 11/05/2023 Other diseases of stomach and duodenum (ICD-10 - K31.89) 11/05/2023 Gastro-esophageal reflux disease with esophagitis, without bleeding (ICD-10 - K21.00) 09/04/2023 Dysphagia (ICD-10 - R13.10) 09/04/2023 IBS (irritable bowel syndrome) (ICD-10 - K58.9) I will send over a prescription for an antispasmodic to use every morning, and then throughout the day as needed to slow down the bowel movements. 11/05/2023 Hiatal hernia (ICD-10 - K44.9) 09/04/2023 Abnormal barium swallow (ICD-10 - R93.3) 11/05/2023 Chronic gastritis (ICD-10 - K29.50) 11/05/2023 Duodenitis (ICD-10 - K29.80) 11/05/2023 Abn findings-GI tract (ICD-10 - R93.3) 09/04/2023 Other Need GI records from [facility]tazar re: colonoscopies, etc PLAN OF TREATMENT Pending Test Test Name Order Date Pathology 11/05/2023 Future Test Test Name Order Date UPPER GI ENDOSCOPY BALLOOON DILATION OF ESOPH 09/04/2023 Next Appt Details Provider Name:Sukhdev Yates Hawkins , 04/15/2024 10:50:00 AM, [address] [facility], [address], [place], [address], Insurance Providers Payer Name Payer Address Payer Phone Subscriber Number Group Number Insured Name Patient Relationship to Insured Coverage Start Date Coverage End Date [facility] [address] [address] [place] [address] [id number] OLE WILKINS Self - patient is the insured MEDICAL (GENERAL) HISTORY Medical History History ICD Code Afib--Dr. Boston Hyperlipidemia Denies [place],DM,CVA,Lung disease,renal dise ase Describes neg. colonoscopies with [facility]-most recent was approx 2020--in 10 year plan Surgical History Surgery Date(Month/Year) inguinal hernias bilatareal hemorrhoidectomy Prostate laser - Dr. Medrano 5 years ago Trigger finger
--- OUTSIDE RECORDS SUMMARY | 2024-01-23 07:45 | XMS_ITS ---
Author Organization [facility] Address [address] [place] [address] Care Team Providers Care Wheel Assembler Name Role Phone Tal Cuellar MD Primary Care Provider Sukhdev Cai Unavailable [phone] Viky CID, Pascual Unavailable Unavailable REASON FOR VISIT 40 mg omeprazole Rx MEDICATIONS Medication SIG (Take, Route, Fr equency, Duration) Notes Start Date End Date Status Omeprazole 40 MG 1 Orally Once a day every morning for 30 day(s) 11/06/2023 Active Encounters Encounter Location Date Provider Diagnosis [facility] [address] [place] [address] 11/06/2023 Sukhdev Hawkins PLAN OF TREATMENT Medication Medication Name Sig Start Date Stop Date Notes Omeprazole 40 MG 1 Orally Once a day every morning for 30 day(s) 11/06/2023 Next Appt Details Provider Name:Sukhdev Hawkins , 04/15/2024 10:50:00 AM, [address] [place] [address], [address], [place], [address],
--- OUTSIDE RECORDS SUMMARY | 2024-01-23 07:45 | XMS_ITS ---
Author Organization [facility] Address [address] [place] [address] Care Team Providers Care Sales Service Executive Name Role Phone Tal Cuellar MD Primary Care Provider Sukhdev Cai Unavailable [phone] Viky CID, Pascual Unavailable Unavailable REASON FOR VISIT abn barium swallow,dysphagia PROBLEMS Problem Type ICD Code Onset Dates Problem Status W/U Status Risk SNOMED Code Notes Problem Gastro-esophag eal reflux disease with esophagitis, without bleeding (K21.00) Active confirmed Gastroesophagea l reflux disease with esophagitis (disorder) (865942748) Problem Chronic gastritis (K29.50) Active confirmed Chronic gastrit is (2665851) Problem Duodenitis (K29.80) Active confirmed Duodenitis (48915491) Encounters Encounter Location Date Provider Diagnosis [facility] [place] [address] [place], [place] [phone] 11/05/2023 Sukhdev Hawkins Gastro-esophageal reflux disease with esophagitis, without bleeding K21.00 ; Other diseases of stomach and duodenum K31.89 ; Hiatal hernia K44.9 ; Chronic gastritis K29.50 ; Duodenitis K29.80 and Abn findings-GI tract R93.3 ASSESSMENTS Encounter Date Diagnosis Assessment Notes Treatment Notes Treatment Clinical Notes 11/05/2023 Gastro-esophageal reflux disease with esophagitis, without bleeding (ICD-10 - K21.00) 11/05/2023 Other diseases of stomach and duodenum (ICD-10 - K31.89) 11/05/2023 Hiatal hernia (ICD-10 - K44.9) 11/05/2023 Chronic gastritis (ICD-10 - K29.50) 11/05/2023 Duodenitis (ICD-10 - K29.80) 11/05/2023 Abn findings-GI tract (ICD-10 - R93.3) PLAN OF TREATMENT Next Appt Details Provider Name:Sukhdev Hawkins , 04/15/2024 10:50:00 AM, [address] [place] [address], [address], [place], [address],
--- OUTSIDE RECORDS SUMMARY | 2024-01-23 07:45 | XMS_ITS ---
Author Organization [facility] Address [address] [place] [address] Care Team Providers Care Motor Vehicle Escort Driver Name Role Phone Tal Cuellar MD Primary Care Provider Sukhdev Cai Unavailable [phone] Viky CID, Pascual Unavailable Unavailable REASON FOR VISIT schedule office visit with Dr. Hawkins Encounters Encounter Location Date Provider Diagnosis [facility] [address] [place] [address] 11/13/2023 Sukhdev Hawkins PLAN OF TREATMENT Next Appt Details Provider Name:Sukhdev Hawkins , 04/15/2024 10:50:00 AM, [address] [facility], [address], [place], [address],
== END ==
LOC: HO.CARD 10:49
PROVIDERS: PCP Internal Medicine; Visit Provider Internal Medicine Cardiovascular Disease
DX: I48.0 Paroxysmal atrial fibrillation (principal)
CPT/HCPCS: 93242; 93306

== ENCOUNTER → 2024-01-18 10:54 | Outpatient (BNV) | payer MEDICARE, SELFPAY | PROVIDERS: PCP Internal Medicine; Visit Provider Internal Medicine Cardiovascular Disease | DX: I51.7 Cardiomegaly (principal) | CPT/HCPCS: 93306 ==

== ENCOUNTER 2024-03-10 09:24 | Outpatient (AMB) | payer MEDICARE, SELFPAY ==
--- NOTE | 2024-03-10 09:28 | A.OFFVIS_ITS ---
Vital Signs 03/10/24 09:29 Height 5 ft 9 in Weight 178 lb 2.136 oz BMI 26.3 BP 110/56 L Blood Pressure Location Lt brachial Position Sitting Pulse 42 L Pulse Source Pulse Oximeter Intake Visit Reasons: 1 yr f/up Intake Note: 1 yr f/u Cutting Table Operator First Required: No Accompanied by: Self / Same As Patient Allergies No Known Allergies [No Known Allergies*] Allergy (Verified 12/26/23 12:29) Medication List - Last Reconciled 03/10/24 by Robson Boston MD atorvastatin 10 mg PO DAILY cholecalciferol (vitamin D3) 25 mcg PO DAILY dicyclomine 10 mg PO TID PRN metoprolol tartrate 25 mg PO DAILY omeprazole 40 mg PO DAILY HPI Comments Details: Kristopher comes for follow-up. He had presented to the emergency room in December after he presented to PCP and feeling that he was not feeling well might be in atrial fibrillation. In the Emergency was noted to be in atrial fibrillation. Converted to sinus rhythm. Started on metoprolol 25 mg daily. Comes for year follow-up since then. He notices heart rate to be slow although he denies any symptoms of lightheadedness, syncope, fatigue. His recent echocardiogram shows normal LV ejection fraction with mildly enlarged left atrium but severely enlarged right-sided chambers of unclear etiology. Patient denies any orthopnea, PND, leg edema. No bleeding issues or neurologic events. Comes for follow-up. [facility] Medical History Dysphagia IBS (irritable bowel syndrome) Hyperlipidemia BPH (benign prostatic hyperplasia) Paroxysmal atrial fibrillation Surgical History Hx of transurethral resection of prostate H/O neck surgery Hx of vasectomy Hx of hernia repair History of radiofrequency ablation (RFA) procedure for cardiac arrhythmia Hx of hemorrhoidectomy History of tonsillectomy and adenoidectomy Family History Father Cancer Lung cancer Mother Cancer Lung cancer Paternal Uncle Lung cancer Paternal Aunt Lung cancer Maternal Grandfather Rectal cancer Social History Household Members: Spouse Are you a primary home health care coordinator to a significant other at home: No Do you presently have visiting nurse or other home services: No Alcohol intake: current Alcohol intake frequency: 0-2 drinks per day Patient Tobacco Use Status: Former Tobacco user Tobacco use type: Cigarette Years Smoked: quit 1999 14 years old start 2-3 pack aday marijuana e-Cigarette/Vaping Use: Never Used Second Hand Smoke Exposure: No Substance Use Type: Marijuana service: No Current occupational status: retired Current occupation: right hand dominant Cognitive needs: No Hearing needs: No Vision needs: No Review of Systems Const Denies chills, Denies fatigue, Denies fever(s), Denies weight gain and Denies weight loss ENT Denies dizziness Card Denies chest pain, Denies leg edema, Denies lightheadedness, Denies palpitations, Denies dyspnea on exertion, Denies orthopnea and Denies other Resp Denies cough and Denies dyspnea on exertion GI Denies hematochezia and Denies change in stool character Musc Denies abnormal gait, Denies muscle weakness, Denies numbness, Denies radiating pain into limb and Denies tingling Neuro Denies abnormal gait, Denies dizziness, Denies numbness and Denies tingling Endo Denies fatigue and Denies palpitations Physical Exam Vital Signs: Last Vital Signs Pulse 42 L 03/10/24 09:29 BP 110/56 L 03/10/24 09:29 BMI result Body Mass Index 26.3 Const General: cooperative, comfortable, awake and Physically active Nutritional Appearance: thin Orientation/consciousness: patient oriented x3 Limitations: no limitations Neck Neck: Yes trachea midline, Yes supple and Yes no JVD Resp Effort & Inspection: normal respiratory effort Auscultation: clear to auscultation bilaterally Cardio Jugular venous distension: no JVD Palpation: normal PMI Rate: regular rate Rhythm: regular rhythm Heart sounds: S1 normal heart sound present and S2 normal heart sound present GI Auscultation: normal bowel sounds Skin General skin exam: no rashes or lesions noted Neuro General: patient oriented x3 and no focal motor deficits Extrem General: Yes no clubbing, cyanosis or edema Psych Appearance: grossly normal Office Procedures EKG Details: EKG shows marked sinus bradycardia at 43 beats per minute with first-degree AV block with left axis deviation [id number], Complete Assessment & Plan Assessment & Plan (1) Paroxysmal atrial fibrillation: Comment: Cardioversion Dr. Boston 1999 Code(s): I48.0 - Paroxysmal atrial fibrillation Category: Medical Plan: Paroxysmal atrial fibrillation with recurrence in December without any clear etiology. He is status post ablation in the past and off all antiarrhythmic drug therapy. Has responded well to metoprolol therapy but developing sinus bradycardia at this point time. Will reduce metoprolol to 12.5 mg daily. Recommend given his biatrial enlargement and age to be started on oral anticoagulation therapy to reduce thromboembolic risk. Will start on Eliquis 5 mg b.i.d.. Given his carpal tunnel syndrome history with biatrial enlargement as well as atrial fibrillation, would suggest workup for amyloidosis, starting with light chain analysis. He is also scheduled for MRI, see below. (2) Sick sinus syndrome: Code(s): I49.5 - Sick sinus syndrome Category: Medical Plan: Sick sinus syndrome with significant bradycardia with low-dose metoprolol therapy. He is suggestive of sinoatrial emelyn dysfunction. Currently not having any symptoms related to it. Would suggest a lower metoprolol to 12.5 mg daily. Advised to monitor heart rate at home. Will suggest a Holter monitor in few weeks along with a exercise treadmill stress test to evaluate for chronotropic competence. Currently not an indication for pacemaker. Will continue monitor. (3) Enlarged RV (right ventricle): Code(s): I51.7 - Cardiomegaly Category: Medical Plan: Significantly enlarged right-sided chambers of unclear etiology. Need to rule out on diagnose sleep apnea as a cause for his right-sided chamber enlargement. Also cardiac MRI to evaluate for RV pathology and intracardiac shunting if present although that will be less likely. Also cardiac MRI to evaluate for any infiltrative disorder such as amyloidosis to be pursued. Will follow up in the clinic in 3 months time, sooner p.r.n.. Thank you for allowing me to partake in his care Orders: Orders MR cardiac morph fnct w con 2 Weeks I51.7 - Cardiomegaly Protein Electrophoresis,Ran Ur Today I51.7 - Cardiomegaly CA stress test 4 Weeks I49.5 - Sick sinus syndrome RT home sleep study Today I51.7 - Cardiomegaly, R40.0 - Somnolence Protein Electrophoresis, Serum Today I51.7 - Cardiomegaly ECG 3 day holter monitor 4 Weeks I49.5 - Sick sinus syndrome Basic Metabolic Panel Today I48.0 - Paroxysmal atrial fibrillation Medications: New apixaban (Eliquis) 5 mg PO BID 60 tabs 5RF Changed From metoprolol tartrate 25 mg PO DAILY 90 tabs 1RF I49.5 - Sick sinus syndrome To metoprolol tartrate 12.5 mg (1/2 x 25 mg) PO DAILY 90 tabs 1RF I49.5 - Sick sinus syndrome Coding Level of Care Code Est Pt Level 4 (83144) Complex EM visit Add On G2211 Diagnoses Paroxysmal atrial fibrillation I48.0 Sick sinus syndrome I49.5 Enlarged RV (right ventricle) I51.7 CPT Codes EKG - CPT: 28318-Ihacaistifhjsmxeh, Complete ([id number])
[2024-03-10 09:29] VITALS: BP 110/56; PULSE 42; BMI 26.3
--- OUTSIDE RECORDS SUMMARY | 2024-03-10 13:46 | XMS_ITS ---
Author Organization [facility] Address [address] [place] [address] Care Team Providers Care Sap Manager Name Role Phone Tal Cuellar MD Primary Care Provider Sukhdev Cai Unavailable [phone] Viky CID, Pascual Unavailable Unavailable REASON FOR VISIT schedule office visit with Dr. Hawkins Encounters Encounter Location Date Provider Diagnosis [facility] [address] [place] [address] 11/13/2023 Sukhdev Hawkins PLAN OF TREATMENT Next Appt Details Provider Name:Sukhdev Hawkins , 04/15/2024 10:50:00 AM, [address] [facility] [facility], [address], [place], [address],
--- OUTSIDE RECORDS SUMMARY | 2024-03-10 13:46 | XMS_ITS ---
Author Organization [facility] Address [address] [place] [address] Care Team Providers Care Tableau Report Developer Name Role Phone Tal Cuellar MD Primary Care Provider Sukhdev Cai Unavailable [phone] Viky CID, Pascual Unavailable Unavailable REASON FOR VISIT 40 mg omeprazole Rx MEDICATIONS Medication SIG (Take, Route, Fr equency, Duration) Notes Start Date End Date Status Omeprazole 40 MG 1 Orally Once a day every morning for 30 day(s) 11/06/2023 Active Encounters Encounter Location Date Provider Diagnosis [facility] [address] [place] [address] 11/06/2023 Sukhdev Hawkins PLAN OF TREATMENT Medication Medication Name Sig Start Date Stop Date Notes Omeprazole 40 MG 1 Orally Once a day every morning for 30 day(s) 11/06/2023 Next Appt Details Provider Name:Sukhdev Hawkins , 04/15/2024 10:50:00 AM, [address] [place] [address], [address], [place], [address],
--- OUTSIDE RECORDS SUMMARY | 2024-03-10 13:46 | XMS_ITS ---
Author Organization [facility] Address [address] [place] [address] Care Team Providers Care Shuttle Inspector Name Role Phone Tal Cuellar MD Primary Care Provider Sukhdev Cai Unavailable [phone] Viky CID, Pascual Unavailable Unavailable REASON FOR VISIT abn barium swallow,dysphagia PROBLEMS Problem Type ICD Code Onset Dates Problem Status W/U Status Risk SNOMED Code Notes Problem Gastro-esophag eal reflux disease with esophagitis, without bleeding (K21.00) Active confirmed Gastroesophagea l reflux disease with esophagitis (disorder) (228919375) Problem Chronic gastritis (K29.50) Active confirmed Chronic gastrit is (0532802) Problem Duodenitis (K29.80) Active confirmed Duodenitis (21049690) Encounters Encounter Location Date Provider Diagnosis [facility] [place] [address] [place], [place] [phone] 11/05/2023 Sukhdev Hawkins Gastro-esophageal reflux disease with [...] Provider Name:Sukhdev Hawkins , 04/15/2024 10:50:00 AM, [address] [place] [address], [address], [place], [address],
--- OUTSIDE RECORDS SUMMARY | 2024-03-10 13:46 | XMS_ITS | Patient Health Record ---
Author Organization [place] [facility] Address [address] [place] [address] Care Team Providers Care Clinical Research Associate Name Role Phone Tal Cuellar MD Primary Care Provider Sukhdev Cai Unavailable [phone] Pascual Salmon MD Unavailable Unavailable ALLERGIES No Known Allergies RESULTS Component Value Reference Range Notes Pathology (Not yet reviewed by provider) Interpretation: Performing Lab:[facility], [address] [place] [id number] Notes/Report: REASON FOR REFERRAL No Information MEDICATIONS [...] syndrome) (K58.9) Active confirmed Irritable bowel syndrome (24637559) Problem Abnormal barium swallow (R93.3) Active confirmed Barium swallow abnormal (649118797) Problem Dysphagia (R13.10) Active confirmed Dysphagia (86503701) Problem Gastro-esophag eal reflux disease with esophagitis, without bleeding (K21.00) Active confirmed Gastroesophagea l reflux disease with esophagitis (disorder) (751766659) Problem Chronic gastritis (K29.50) Active confirmed Chronic gastrit is (0255959) Problem Duodenitis (K29.80) Active confirmed Duodenitis (82074385) VITAL SIGNS Blood pressure diastolic 00 mm Hg 09/04/2023 Height 5 ft 9 in in 09/04/2023 Blood pressure systolic 00 mm Hg 09/04/2023 Weight 175 lbs 09/04/2023 BMI 25.84 kg/m2 09/04/2023 Encounters Encounter Location Date Provider Diagnosis [facility] Outpatient [address] [place] [id number] 11/05/2023 Sukhdev Hawkins Gastro-esophageal reflux disease with esophagitis, without bleeding K21.00 ; Other diseases of stomach and duodenum K31.89 ; Hiatal hernia K44.9 ; Chronic gastritis K29.50 ; Duodenitis K29.80 and Abn findings-GI tract R93.3 [facility] [address] [place] [address] 09/04/2023 Sukhdev Hawkins IBS (irritable bowel syndrome) K58.9 ; Dysphagia R13.10 and Abnormal barium swallow R93.3 [facility] [address] [place] [address] 11/06/2023 Sukhdev Hawkins [facility] [address] [address] 11/13/2023 Sukhdev Hawkins ASSESSMENTS Encounter Date Diagnosis [...] R93.3) 09/04/2023 Other Need GI records from [facility] re: colonoscopies, etc PLAN OF TREATMENT Pending Test Test Name Order Date Pathology 11/05/2023 Future Test Test Name Order Date UPPER GI ENDOSCOPY BALLOOON DILATION OF ESOPH 09/04/2023 Next Appt Details Provider Name:Sukhdev Yates Hawkins , 04/15/2024 10:50:00 AM, [address] [facility], [address], [place], [address], Insurance Providers Payer Name Payer Address Payer Phone Subscriber Number Group Number Insured Name Patient Relationship to Insured Coverage Start Date Coverage End Date [facility] [address] [address] [place] [address] [id number] OLE WILKINS Self - patient is the insured MEDICAL (GENERAL) HISTORY Medical History History ICD Code Afib--Dr. Boston Hyperlipidemia Denies CT,DM,CVA,Lung disease,renal dise ase Describes neg. colonoscopies with [facility]-most recent was approx 2020--in 10 year plan Surgical History Surgery Date(Month/Year) inguinal hernias bilatareal hemorrhoidectomy Prostate laser - Dr. Medrano 5 years ago Trigger finger
== END 2024-03-10 10:09 | disposition home or self-care (01) ==
PROVIDERS: PCP Internal Medicine; Visit Provider Internal Medicine Cardiovascular Disease
DX: I48.0 Paroxysmal atrial fibrillation (principal); I49.5 Sick sinus syndrome; I51.7 Cardiomegaly
CPT/HCPCS: 93010; 99214; G2211

== ENCOUNTER 2024-03-10 09:24 | Outpatient (REF) | payer MEDICARE, SELFPAY ==
[2024-03-10 12:21] LABS: Anion Gap 14 (12-20); Blood Urea Nitrogen 13 mg/dL (9-16); Calcium 9.6 mg/dL (8.4-10.2); Carbon Dioxide 24 mmol/L (22-29); Chloride 105 mmol/L (96-108); Estimated Glomerular Filt Rate > 60; Glucose Random 85 mg/dL (60-115); Potassium 4.2 mmol/L (3.3-5.1); Sodium 139 mmol/L (135-145)
[2024-03-12 12:14] LABS: Prot Elec - Albumin 4.9 g/dL (3.8-4.8); Prot Elec - Alpha1 0.3 g/dL (0.2-0.3); Prot Elec - Alpha2 0.7 g/dL (0.5-0.9); Prot Elec - Beta 1 0.4 g/dL (0.4-0.6); Prot Elec - Beta 2 0.3 g/dL (0.2-0.5); Prot Elec - Total Protein 7.6 g/dL (6.1-8.1)
== END 2024-03-10 09:25 | disposition home or self-care (01) ==
LOC: HO.LAB 09:24
PROVIDERS: PCP Internal Medicine; Visit Provider Internal Medicine Cardiovascular Disease
DX: I48.0 Paroxysmal atrial fibrillation (principal); I51.7 Cardiomegaly; I49.5 Sick sinus syndrome
CPT/HCPCS: 36415; 80048; 84165; 93005; 99212

== ENCOUNTER 2024-03-11 03:10 | Outpatient (REF) | payer MEDICARE, SELFPAY ==
--- OUTSIDE RECORDS SUMMARY | 2024-03-11 12:18 | XMS_ITS | Continuity of Care Document ---
Author Organization [place] - [facility], HARJEET Ames 1st Floor Address [address] [place] [address] Care Team Providers Care Flight Radio Operator Name Role Phone DOROTHYEDSON Primary Care Provider [phone] Assessment No assessment recorded. Plan of Treatment Reminders Order Date Submit Date Provider Last Modified By Organization Details Last Modified Time Details Appointments NEW PATIENT 15 2024 09:45A Milan Fair MD Not available Not available Not available Lab None recorded. Referral None recorded. Procedures None recorded. Surgeries None recorded. Imaging XR, hand, 3 or more view - RECHECK PT 3 VIEWS BILATERAL HAND RM 108 2024 025 [email or web address] [facility] Office, [address] [facility], [facility] [address], [place], [address], 02/27/2024 15:59:33 Medication Orders None recorded. Patient TargetsNo targets recorded. Patient InstructionsNo instructions recorded. Reason for Referral None Reported. Results Created Date Observation Date Name Description Value Unit Range Abnormal Flag Note LastModifiedBy Organization Detail LastModifiedTime 02/26/19 25 02/27/2024 XR, hand, 3 or more view http:/ [email or web address] ?Encry pted=s hAaTro YD8dLq bEUv6g %2BXZw aYqtaq 0bqfl% 2Fg9IQ a4ajBk vP9nXo QUaueC m3YtLR FvZlgJ JJ8mAn HZtai3 3g0746 AC0Kqb 3mNUKe hKiQtr MwF INTERFACE [facility] [address], [place], [address], 02/27/2024 14:23:57 02/26/19 25 02/27/2024 XR, hand, 3 or more view [email or web address]:/ [email or web address] ?Encry pted=s hAaTro YD8dLq bEUv6g %2BXZw aYqtaq 0bqfl% 2Fg9IQ a4ajBk vP9nXo QUaueC m3YtLR FvZlgJ JJ8mAn HZtai3 5b3771 AC0Kqb 3mNUKe hKiQtr MwF INTERFACE [facility] [address], [place], [address], 02/27/2024 14:24:00 Result Notes None recorded. Procedures Surgical History Date Name Laterality Status Provider Name and Address Organization Details Recorded Time Tendon Sheath Kenalog Injection, L/R completed Yvonne Finley PA-C [address], [place], [address], [facility] 02/27/2024 15:45:18 Imaging Results None recorded. Procedure Notes None recorded. Medical Equipment None Reported. Allergies No known drug allergies Medications Name Sig Start Date Stop Date Status Note LastModified by Organization Details LastModified Time nystatin 100,000 unit/mL oral suspension active Not Available Not Available N ot Available atorvastatin 10 mg tablet active Not Available Not Available Not Available omeprazole 40 mg capsule,delaye d release active Not Available Not Available No t Available dicyclomine 10 mg capsule active Not Available Not Available N ot Available metoprolol tartrate 25 mg tablet active Not Available Not Available Not Available Vitals Date Recorded Body height Body mass index (BMI) Body weight Provider Name and Address Organization Details Last Updated DateTime 02/27/2024 172.72 cm 26.8 kg/m2 14204.26 g Alannah Bunn [facility] 02/27/2024 14:11:15 Social History None recorded. Functional Status None recorded. Mental Status None recorded. Family History Nothing Reported. Medical History No medical history recorded. Past Encounters Encounter ID Performer Location Encounter Start Date Encounter Closed Date Diagnosis/Indication Diagnosis SNOMED-CT Code Diagnosis ICD10 Code Diagnosis Note [id number] RAYMOND Stahl [address], [place] [address] 02/27/2024 14:00:54 03/10/2024 14:29:10 Pain of bilateral hands [id number] 2736819 M79.641 M79.642 Bilateral acquired trigger finger of index fingers [id number] 2458000 M65.321 M65.322 Health Concerns Section Related Observation LastModified by Organization Detai ls LastModified Time None Recorded Concern Status LastModified by Organization Details LastModified Time None Recorded Payers Encounter Date Sequence Insurance Name Policy Number Policy Ho Covered Member ID Ho Member ID Guarantor Name 02/27/2024 1 [facility] (MEDICARE REPLACEMENT/A DVANTAGE - PPO) [id number] Kristopher Basurto [id number] Kristopher Basurto Notes Date Note Type Note Provider Name and Address Organization Details Recorded Time 02/27/2024 text/html Reports the inje ction that he had for his right index I am seeing this patient under the supervision of Dr. Zaidi who was available but who did not see the patient. Clinical update: Patient is here today for recheck. He states the right index finger flexor tendon cortisone injection he recieved at [place] was not helpful. He would like to try repeat injection today as it has been more than 3 months since the injection. Denies interval trauma. Physical exam, imaging review, impression, and plan for today's visit updated below.HPI: Patient is a 66-year-old male presenting to the office today for recheck of trigger fingers. He is status post left middle trigger finger release back in April [address] Benitez. He then saw me in October 2022 for cortisone injections of the left ring and right middle trigger fingers. Reports he has been getting trigger finger symptoms in the bilateral index fingers now. He went to [place] where they gave him a cortisone injection in the right index finger flexor tendon which did not help. Also reports he has been having worsening numbness and tingling in bilateral hands but mostly in the right hand. Localizes the numbness to the index, middle, and third fingers of the right hand. Reports it is worst when holding his phone for a while in the mornings. Reports he had an EMG done at [place] as well as x-rays but did not bring these with him today. Reports the EMG confirmed carpal tunnel syndrome and the x-rays did not show any arthritis.Past family, medical, social history and review of systems has been reviewed, updated and is located in the patient's chart.Examination: The patient is well appearing, alert and oriented x3 and in no acute distress. Inspection of the bilateral hands no edema, atrophy, erythema, ecchymoses or deformity. Skin is intact, no open wounds. Full movement of the fingers except for some difficulty with full flexion of the bilateral index fingers due to swelling and stiffness. Intact extrinsic digit flexors and extensors. Neurovascularly intact distally. Good capillary refill. Patient is tender over A1 enio of the bilateral index fingers right more so than left. Nontender about the rest of the finger. Negative median nerve compression test bilaterally. Peripheral, vascular, lymphatic examination, skin, neurological, coordination, reflexes, sensation are within normal limits.X-rays ordered, obtained and reviewed independently today at [facility]: 4 view x-rays of bilateral hands reveal no acute fractures or dislocations. Bilateral first CMC OA, left worse than right. Other mild arthritic changes noted about the digits.Impression:1. Bilateral index finger flexor tenosynovitis status post 1 cortisone injection . Resolved left ring and right middle trigger fingers status post 1 cortisone injection . Status post left middle trigger finger release April [address] Benitez4. Right carpal tunnel syndrome confirmed on EMGPlan: I discussed my findings and the situation with the patient today. We discussed potential treatment options at this time. We discussed the role of cortisone as well as its risks and benefits. Patient would like to proceed with an injection. Under sterile technique the patient's right index finger flexor tendon sheath/A1 enio region was injected with 1cc Kenalog. Patient tolerated the procedure well. Post procedure protocol was discussed with the patient. Patient will follow-up on an as-needed basis. If symptoms persist or things worsen or change she will call the office patient agrees with this plan. All questions were answered.Speech recognition bilingual nanny software was used to create portions of this document. An attempt at proofreading has been made to minimize errors. Please call for corrections. [address]MON[address], [place], [address], [facility] 02/27/2024 15:46:21
--- OUTSIDE RECORDS SUMMARY | 2024-03-11 12:18 | XMS_ITS ---
Author Organization [facility] Address [address] [place] [address] Care Team Providers Care Safety Aide Name Role Phone Tal Cuellar MD Primary Care Provider Sukhdev Cai Unavailable [phone] Viky CID, Pascual Unavailable Unavailable REASON FOR VISIT schedule office visit with Dr. Hawkins Encounters Encounter Location Date Provider Diagnosis [facility] [address] [place] [address] 11/13/2023 Sukhdev Hawkins PLAN OF TREATMENT Next Appt Details Provider Name:Sukhdev Hawkins , 04/15/2024 10:50:00 AM, [address] [facility], [address], [place], [address],
--- OUTSIDE RECORDS SUMMARY | 2024-03-11 12:18 | XMS_ITS | Patient Health Record ---
Author Organization [place] [facility] Address [address] [place] [address] Care Team Providers Care Validation Engineer Name Role Phone Tal Cuellar MD Primary Care Provider Sukhdev Cai Unavailable [phone] Pascual Salmon MD Unavailable Unavailable ALLERGIES No Known Allergies RESULTS Component Value Reference Range Notes Pathology (Not yet reviewed by provider) Interpretation: Performing Lab:[facility], [address] [place] [id number] Notes/Report: REASON FOR REFERRAL No Information MEDICATIONS [...] syndrome) (K58.9) Active confirmed Irritable bowel syndrome (54244236) Problem Abnormal barium swallow (R93.3) Active confirmed Barium swallow abnormal (888961022) Problem Dysphagia (R13.10) Active confirmed Dysphagia (53144952) Problem Gastro-esophag eal reflux disease with esophagitis, without bleeding (K21.00) Active confirmed Gastroesophagea l reflux disease with esophagitis (disorder) (178749223) Problem Chronic gastritis (K29.50) Active confirmed Chronic gastrit is (1298678) Problem Duodenitis (K29.80) Active confirmed Duodenitis (69291760) VITAL SIGNS Blood pressure diastolic 00 mm Hg 09/04/2023 Height 5 ft 9 in in 09/04/2023 Blood pressure systolic 00 mm Hg 09/04/2023 Weight 175 lbs 09/04/2023 BMI 25.84 kg/m2 09/04/2023 Encounters Encounter Location Date Provider Diagnosis [facility] [place] [address] [place] [id number] 11/05/2023 Sukhdev Hawkins Gastro-esophageal reflux disease with esophagitis, without bleeding K21.00 ; Other diseases of stomach and duodenum K31.89 ; Hiatal hernia K44.9 ; Chronic gastritis K29.50 ; Duodenitis K29.80 and Abn findings-GI tract R93.3 [facility] [address] [place] [address] 09/04/2023 Sukhdev Hawkins IBS (irritable bowel syndrome) K58.9 ; Dysphagia R13.10 and Abnormal barium swallow R93.3 [facility] [address] [place] [address] 11/06/2023 Sukhdev Hawkins [facility] [address] [address] 11/13/2023 Sukhdev Hawkins ASSESSMENTS Encounter Date Diagnosis [...] R93.3) 09/04/2023 Other Need GI records from [facility] re: colonoscopies, etc PLAN OF TREATMENT Pending Test Test Name Order Date Pathology 11/05/2023 Future Test Test Name Order Date UPPER GI ENDOSCOPY BALLOOON DILATION OF ESOPH 09/04/2023 Next Appt Details Provider Name:Sukhdev Yates Hawkins , 04/15/2024 10:50:00 AM, [address] [facility], [address], [place], [address], Insurance Providers Payer Name Payer Address Payer Phone Subscriber Number Group Number Insured Name Patient Relationship to Insured Coverage Start Date Coverage End Date [facility] [address] [address] [place] [id number] OLE WILKINS Self - patient is the insured MEDICAL (GENERAL) HISTORY Medical History History ICD Code Afib--Dr. Boston Hyperlipidemia Denies SD,DM,CVA,Lung disease,renal dise ase Describes neg. colonoscopies with [facility]-most recent was approx 2020--in 10 year plan Surgical History Surgery Date(Month/Year) inguinal hernias bilatareal hemorrhoidectomy Prostate laser - Dr. Medrano 5 years ago Trigger finger
--- OUTSIDE RECORDS SUMMARY | 2024-03-11 12:18 | XMS_ITS ---
Author Organization [facility] Address [address] [place] [address] Care Team Providers Care Inside Sales Name Role Phone Tal Cuellar MD Primary Care Provider Sukhdev Cai Unavailable [phone] Viky CID, Pascual Unavailable Unavailable REASON FOR VISIT 40 mg omeprazole Rx MEDICATIONS Medication SIG (Take, Route, Fr equency, Duration) Notes Start Date End Date Status Omeprazole 40 MG 1 Orally Once a day every morning for 30 day(s) 11/06/2023 Active Encounters Encounter Location Date Provider Diagnosis [facility] [address] [facility] [address] [place] [address] 11/06/2023 Sukhdev Hawkins PLAN OF TREATMENT Medication Medication Name Sig Start Date Stop Date Notes Omeprazole 40 MG 1 Orally Once a day every morning for 30 day(s) 11/06/2023 Next Appt Details Provider Name:Sukhdev Hawkins , 04/15/2024 10:50:00 AM, [address] [place] [address], [address], [place], [address],
--- OUTSIDE RECORDS SUMMARY | 2024-03-11 12:18 | XMS_ITS ---
Author Organization [facility] Address [address] [place] [address] Care Team Providers Care Nanofabrication Specialist Name Role Phone Tal Cuellar MD Primary Care Provider Sukhdev Cai Unavailable [phone] Viky CID, Pascual Unavailable Unavailable REASON FOR VISIT abn barium swallow,dysphagia PROBLEMS Problem Type ICD Code Onset Dates Problem Status W/U Status Risk SNOMED Code Notes Problem Gastro-esophag eal reflux disease with esophagitis, without bleeding (K21.00) Active confirmed Gastroesophagea l reflux disease with esophagitis (disorder) (892429886) Problem Chronic gastritis (K29.50) Active confirmed Chronic gastrit is (8714940) Problem Duodenitis (K29.80) Active confirmed Duodenitis (84328838) Encounters Encounter Location Date Provider Diagnosis [facility] Out[place] [address] [place], [place] [phone] 11/05/2023 Sukhdev Hawkins Gastro-esophageal reflux disease with [...] Provider Name:Sukhdev Hawkins , 04/15/2024 10:50:00 AM, [address] [place] [address], [address], [place], [address],
[2024-03-17 07:44] LABS: PEU-Protein Creat Ratio Rand 0.042 (0.025-0.148); PEU-Rand. Prot/Creat Ratio 42 mg/g creat (25-148); PEU-Random Ur. Gamma Globulin 0 %; PEU-Random Urine A1 Globulin 0 %; PEU-Random Urine A2 Globulin 0 %; PEU-Random Urine Albumin 100 %; PEU-Random Urine Beta Globulin 0 %; PEU-Random Urine Creatinine 144 mg/dL (20-320); PEU-Random Urine Protein 6 mg/dL (5-25)
== END 2024-03-11 03:11 | disposition home or self-care (01) ==
LOC: HO.LNP 03:10
PROVIDERS: Visit Provider Internal Medicine Cardiovascular Disease
DX: I51.7 Cardiomegaly (principal)
CPT/HCPCS: 82570; 84156; 84166

== ENCOUNTER → 2024-04-07 08:40 | Outpatient (REF) | payer MEDICARE, SELFPAY ==
--- NOTE | 2024-04-07 08:44 | CA_ITS ---
Acquisition Time: 2024-04-07 10:16:39 Total Exercise Time: 00:02:00 Test Indications: AFIB Medications: SEE H&P Protocol: LEXISCAN Max HR: 134 BPM 89% of Pred: 150 BPM Max BP: 130/74 mmHG Max Work Load: 1.0 METS Pharmacological stress test with Lexiscan while pt marches in his chair, with reports of SOB, flushing and dizziness, with isolated PVCs, with normotensive response to injection. Nondiagnostic EKG for ischemia. In recovery, pt treated with IVP Aminophylline 75 mg to reverse Lexiscan, after which pt feeling back to baseline. Nuclear images pending. Test reviewed with Dr. Aviles. Referred By: Robson Boston Electronically Signed By: Amish Lin
--- OUTSIDE RECORDS SUMMARY | 2024-04-07 09:11 | XMS_ITS ---
Author Organization [facility] Address [address] [place] [address] Care Team Providers Care General Neurologist Name Role Phone Tal Cuellar MD Primary Care Provider Sukhdev Cai Unavailable [phone] Viky CID, Pascual Unavailable Unavailable REASON FOR VISIT abn barium swallow,dysphagia PROBLEMS Problem Type ICD Code Onset Dates Problem Status W/U Status Risk SNOMED Code Notes Problem Gastro-esophag eal reflux disease with esophagitis, without bleeding (K21.00) Active confirmed Gastroesophagea l reflux disease with esophagitis (disorder) (300591953) Problem Chronic gastritis (K29.50) Active confirmed Chronic gastrit is (4831996) Problem Duodenitis (K29.80) Active confirmed Duodenitis (76035700) Encounters Encounter Location Date Provider Diagnosis [facility] Outpatient [address] [place], [place] [phone] 11/05/2023 Sukhdev Hawkins Gastro-esophageal reflux disease with [...] Provider Name:Sukhdev Hawkins , 04/15/2024 10:50:00 AM, [address] [place] [address], [address], [place], [address],
--- OUTSIDE RECORDS SUMMARY | 2024-04-07 09:11 | XMS_ITS ---
Author Organization [facility] Address [address] [place] [address] Care Team Providers Care Microstrategy Reports Developer Name Role Phone Tal Cuellar MD Primary Care Provider Sukhdev Cai Unavailable [phone] Viky CID, Pascual Unavailable Unavailable REASON FOR VISIT 40 mg omeprazole Rx MEDICATIONS Medication SIG (Take, Route, Fr equency, Duration) Notes Start Date End Date Status Omeprazole 40 MG 1 Orally Once a day every morning for 30 day(s) 11/06/2023 Active Encounters Encounter Location Date Provider Diagnosis [facility] [address] [facility] [address] [place] [address] 11/06/2023 Sukhdev Hawkins PLAN OF TREATMENT Medication Medication Name Sig Start Date Stop Date Notes Omeprazole 40 MG 1 Orally Once a day every morning for 30 day(s) 11/06/2023 Next Appt Details Provider Name:Sukhdev Hawkins , 04/15/2024 10:50:00 AM, [address] [place] [address], [address], [place], [address],
--- OUTSIDE RECORDS SUMMARY | 2024-04-07 09:11 | XMS_ITS | Patient Health Record ---
Author Organization [facility] Address [address] [place] [id number] Care Team Providers Care Cosmetic Surgeon Name Role Phone Tal Cuellar MD Primary Care Provider Sukhdev Cai Unavailable [phone] Pascual Salmon MD Unavailable Unavailable ALLERGIES No Known Allergies RESULTS Component Value Reference Range Notes Pathology (Not yet reviewed by provider) Interpretation: Performing Lab:[facility], [address] [place] [id number] Notes/Report: REASON FOR REFERRAL No Information MEDICATIONS [...] W/U Status Risk SNOMED Code Notes Problem Dysphagia (R13.10) Active confirmed Dysphagia (74691496) Problem Duodenitis (K29.80) Active confirmed Duodenitis (38700344) Problem IBS (irritable bowel syndrome) (K58.9) Active confirmed Irritable bowel syndrome (11322412) Problem Abnormal barium swallow (R93.3) Active confirmed Barium swallow abnormal (500456538) Problem Chronic gastritis (K29.50) Active confirmed Chronic gastrit is (4757665) Problem Gastro-esophag eal reflux disease with esophagitis, without bleeding (K21.00) Active confirmed Gastroesophagea l reflux disease with esophagitis (disorder) (799580646) VITAL SIGNS Blood pressure diastolic 00 mm Hg 09/04/2023 Height 5 ft 9 in in 09/04/2023 Blood pressure systolic 00 mm Hg 09/04/2023 Weight 175 lbs 09/04/2023 BMI 25.84 kg/m2 09/04/2023 Encounters Encounter Location Date Provider [place] [facility] [place] [address] [place] [id number] 11/05/2023 Sukhdev Hawkins Gastro-esophageal reflux disease with esophagitis, without bleeding K21.00 ; Other diseases of stomach and duodenum K31.89 ; Hiatal hernia K44.9 ; Chronic gastritis K29.50 ; Duodenitis K29.80 and Abn findings-GI tract R93.3 [facility] [address] [place] [phone] 09/04/2023 Sukhdev Hawkins IBS (irritable bowel syndrome) K58.9 ; Dysphagia R13.10 and Abnormal barium swallow R93.3 [facility] [address] [place] [phone] 11/06/2023 Sukhdev Hawkins [facility] [address] [phone] 11/13/2023 Sukhdev Hawkins ASSESSMENTS Encounter Date Diagnosis [...] R93.3) 09/04/2023 Other Need GI records from [facility]/Delmis Baltazar re: colonoscopies, etc PLAN OF TREATMENT Pending Test Test Name Order Date Pathology 11/05/2023 Future Test Test Name Order Date UPPER GI ENDOSCOPY BALLOOON DILATION OF ESOPH 09/04/2023 Next Appt Details Provider Name:Sukhdev Yates Hawkins , 04/15/2024 10:50:00 AM, [address] [facility], [address], [place], [address], Insurance Providers Payer Name Payer Address Payer Phone Subscriber Number Group Number Insured Name Patient Relationship to Insured Coverage Start Date Coverage End Date [facility] [address] [address] [place] [address] [id number] OLE WILKINS Self - patient is the insured MEDICAL (GENERAL) HISTORY Medical History History ICD Code Afib--Dr. Boston Hyperlipidemia Denies SD,DM,CVA,Lung disease,renal dise ase Describes neg. colonoscopies with [facility]-most recent was approx 2020--in 10 year plan Surgical History Surgery Date(Month/Year) inguinal hernias bilatareal hemorrhoidectomy Prostate laser - Dr. Medrano 5 years ago Trigger finger
--- OUTSIDE RECORDS SUMMARY | 2024-04-07 09:12 | XMS_ITS ---
Author Organization [facility] Address [address] [place] [address] Care Team Providers Care Curtain Inspector Name Role Phone Tal Cuellar MD Primary Care Provider Sukhdev Cai Unavailable [phone] Viky CID, Pascual Unavailable Unavailable REASON FOR VISIT schedule office visit with Dr. Hawkins Encounters Encounter Location Date Provider Diagnosis [facility] [address] [place] [address] 11/13/2023 Sukhdev Hawkins PLAN OF TREATMENT Next Appt Details Provider Name:Sukhdev Hawkins , 04/15/2024 10:50:00 AM, [address] [facility], [address], [place], [address],
== END ==
LOC: HO.CARD 08:40
PROVIDERS: PCP Internal Medicine; Visit Provider Internal Medicine Cardiovascular Disease
DX: I48.0 Paroxysmal atrial fibrillation (principal); I49.5 Sick sinus syndrome
CPT/HCPCS: 78452; 93017; 93242; A9500; J0280; J2785

== ENCOUNTER → 2024-04-07 08:44 | Outpatient (BNV) | payer MEDICARE, SELFPAY | PROVIDERS: PCP Internal Medicine | DX: R06.02 Shortness of breath (principal); I49.3 Ventricular premature depolarization | CPT/HCPCS: 78452; 93016; 93018 ==

== ENCOUNTER 2024-04-14 09:15 | Outpatient (AMB) | payer MEDICARE, SELFPAY ==
--- NOTE | 2024-04-14 09:29 | MHC.PC.OV ---
Vital Signs 04/14/24 09:33 Height 5 ft 9 in Weight 176 lb 2 oz BMI 26.0 BP 110/68 Blood Pressure Location Lt brachial Position Sitting Pulse 40 L Pulse Source Pulse Oximeter Temp 96.9 F Temp Source Temporal Artery Scan Pulse Oximetry (%) 97 Oxygen Delivery Method Room Air Intake Visit Reasons: 3mth f/u Intake Note: Patient is here to follow up on Hypercholesterolemia, PAF. 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 [employer] Ax Consultant: Not Required per policy Accompanied by: Self / Same As Patient Allergies No Known Allergies [No Known Allergies*] Allergy (Verified 04/14/24 09:32) Tobacco use date assessed: 04/14/24 Fall risk assessment: No Falls in past year Last assessed Fall Risk: 04/14/24 Dental Screening Dental Screen Date: 04/14/24 Did you have a dental visit in the last 12 months?: Yes Did you have a dental problem in the last 6 months where you did not have access to dental care?: No Was dental information given to patient?: Patient has dentist [facility] Medical History (Updated 04/14/24 @ 09:43 by Tal Cuellar MD) Bilateral hand numbness Vision changes Bilateral hand pain Dysphagia IBS (irritable bowel syndrome) Hyperlipidemia BPH (benign prostatic hyperplasia) Paroxysmal atrial fibrillation Surgical History Hx of transurethral resection of prostate H/O neck surgery Hx of vasectomy Hx of hernia repair History of radiofrequency ablation (RFA) procedure for cardiac arrhythmia Hx of hemorrhoidectomy History of tonsillectomy and adenoidectomy Family History Father Cancer Lung cancer Mother Cancer Lung cancer Paternal Uncle Lung cancer Paternal Aunt Lung cancer Maternal Grandfather Rectal cancer Social History Household Members: Spouse Are you a primary care center manager to a significant other at home: No Do you presently have visiting nurse or other home services: No Alcohol intake: current Alcohol intake frequency: 0-2 drinks per day Patient Tobacco Use Status: Former Tobacco user Tobacco use type: Cigarette Years Smoked: quit 1999 14 years old start 2-3 pack aday marijuana e-Cigarette/Vaping Use: Never Used Second Hand Smoke Exposure: Yes Substance Use Type: Marijuana service: No Current occupational status: retired Current occupation: right hand dominant Cognitive needs: No Hearing needs: No Vision needs: No Questionnaire PHQ-9 Over the last 2 weeks, how often have you been bothered by any of the following problems? 1. Little interest or pleasure in doing things: not at all 2. Feeling down, depressed, or hopeless: not at all 3. Trouble falling or staying asleep, or sleeping too much: not at all 4. Feeling tired or having little energy: not at all 5. Poor appetite or overeating: not at all 6. Feeling bad about yourself - or that you are a failure or have let yourself or your family down: not at all 7. Trouble concentrating on things, such as reading the newspaper or watching television: not at all 8. Moving or speaking so slowly that other people could have noticed. Or the opposite - being so fidgety or restless that you have been moving around a lot more than usual: not at all 9. Thoughts that you would be better off or of hurting yourself in some way: not at all Total score: 0 Depression Screening Interpretation: Negative Depression Screening Done: Yes Source: Developed by Drs. Sukhdev Jama, Yolie Hopson, Rafy Dc and colleagues, with an educational mario from [employer]. Thrive Questionnaire Date Thrive assessed: 04/14/24 I am a: Patient What is your living situation today?: I have a steady place to live Within the past 12 months, did the food you bought not last and you didn't have the money to get more?: Never true Within the past 12 months, did you worry whether your food would run out before you got money to buy more?: Never true Do you have trouble paying for medicines?: No Do you have trouble getting transportation to medical appointments?: No Do you have trouble paying your heating and electricity bill?: No Do you have trouble taking care of your child, family member or friend?: No Do you have trouble with day-to-day activities such as bathing, preparing meals, shopping, managing finances, etc.?: No Are you currently unemployed and looking for a job?: No Are you interested in more education?: No Please select the resources that you would like help with: None Currently or been in a relationship where the following occur: No concerns reported THRIVE Score: 0 AUDIT C Alcohol Use Questionnaire (AUDIT-C) 1. How often do you have a drink containing alcohol?: 2-3 times a week 2. How many drinks containing alcohol do you have on a typical day when you are drinking?: 1 or 2 Total Score: 3 SRIRAM-7 AMB Questionnaire SRIRAM-7 Date SRIRAM - 7 assessed: 04/14/24 Feeling nervous, anxious, or on edge: 0 = Not at all Not being able to stop or control worryin = Not at all Worrying too much about different things: 0 = Not at all Trouble relaxin = Not at all Being so restless that it is hard to sit still: 0 = Not at all Becoming easily annoyed or irritable: 0 = Not at all Feeling afraid as if something awful might happen: 0 = Not at all Total SRIRAM-7 score (0-4 normal; 5-9 mild; 10-14 moderate; 15-21 severe): 0 Source: Developed by Drs. Sukhdev Jama, Yolie Hopson, Rafy Dc and colleagues, with an educational mario from [employer]. Physical exam (Primary Care) Vital Signs: Last Vital Signs Temp 96.9 F 04/14/24 09:33 Pulse 40 L 04/14/24 09:33 BP 110/68 04/14/24 09:33 Pulse Ox 97 04/14/24 09:33 Oxygen Delivery Method Room Air 04/14/24 09:33 BMI result Body Mass Index 26.0 Tobacco/Smoking Status: Tobacco use Status Tobacco use date assessed 04/14/24 04/14/24 09:38 Patient Tobacco Use Status Former Tobacco user 04/14/24 09:38 Tobacco use type Cigarette 04/14/24 09:38 e-Cigarette/Vaping Use Never Used 04/14/24 09:38 PHQ-9: PHQ-9 Score PHQ-9: Total score 0 04/14/24 10:09 Depression Screening Interpretation: Negative Thrive Assessment: Date of Thrive Assessment Date Thrive assessed 04/14/24 04/14/24 09:38 Currently or been in a relationship where the following occur: No concerns reported Const General: alert; No acute distress Eyes Conjunctivae: conjunctivae normal Resp Auscultation: clear to auscultation bilaterally Cardio Rate: regular rate Rhythm: regular rhythm GI Inspection: Yes normal to inspection Extrem General: Yes normal to inspection and No edema Office Procedures Flu Questionnaire Does the patient have a severe egg allergy?: No Does the patient have severe life threatening allergies?: No Does the patient have a fever or illness today?: No Has the patient ever had Guillain-Alpha Syndrome?: No Has the patient ever had any past reaction to a flu shot?: No Immunizations Fluarix Triv 3040-2131 (PF) 45 mcg (15 mcg x 3)/0.5 mL IM syringe Performing Provider: Tal Cuellar MD [place] [facility] [place] Administered by: FIDEL Feliciano on 04/14/24 10:08 Dose Route Admin Location Dispensed Lot Number Expiration Date NDC Application Integration Architect 0.5 mL IM Left Deltoid 0.5 mL [id number] 08/11/24 [id number] [employer] VIS Given Date VIS Provided VIS Publication Date 04/14/24 Single Vaccine 20 Eligibility Eligibility Date Funding Source Not [facility] Eligible 04/14/24 Private Coding Level of Care Code Est Pt Level 4 (27910) Complex EM visit Add On G2211 Diagnoses Paroxysmal atrial fibrillation I48.0 BPH w urinary obs/LUTS N40.1; N13.8 Hypercholesterolemia E78.00 Carpal tunnel syndrome, bilateral upper limbs G56.03 Erosive gastritis K29.60 Sick sinus syndrome I49.5 Assessment & Plan Assessment & Plan (1) Paroxysmal atrial fibrillation: Comment: Cardioversion Dr. Boston 1999 Code(s): I48.0 - Paroxysmal atrial fibrillation Category: Medical Plan: Patient is started on anticoagulation with Eliquis 5 mg twice a day and will continue to monitor renal function. (2) BPH w urinary obs/LUTS: Comment: TURP 2022 Medrano Code(s): N40.1 - Benign prostatic hyperplasia with lower urinary tract symptoms; N13.8 - Other obstructive and reflux uropathy Category: Medical Plan: Stable (3) Hypercholesterolemia: Code(s): E78.00 - Pure hypercholesterolemia, unspecified Category: Medical Plan: Avoid fried foods, chicken skin, eggs, butter margarine, pastries and meat. Be it pork or beef they have a lot of cholesterol on atorvastatin 10 mg once a day (4) Carpal tunnel syndrome, bilateral upper limbs: Code(s): G56.03 - Carpal tunnel syndrome, bilateral upper limbs Category: Medical Plan: Patient continues to follow-up with orthopedics. (5) Erosive gastritis: Code(s): K29.60 - Other gastritis without bleeding Category: Medical Plan: Avoid the foods that causes that usually spicy foods, tomato products, juices, coffee, soda and foods that your sensitive to. After eating do not lie down, allow 3-4 hours before in lie down. And keep the head of bed above 30 degrees to avoid the acid from going up. On omeprazole (6) Sick sinus syndrome: Code(s): I49.5 - Sick sinus syndrome Category: Medical Plan: Patient is being monitored by Cardiology and has been advised to get a sleep study. Plan History of Present Illness The patient is a 68-year-old male presenting with follow-up for ongoing management of atrial fibrillation and other chronic health conditions. With a history of paroxysmal atrial fibrillation, the patient has undergone cardioversion and is on anticoagulation therapy with Eliquis, evidencing previous treatment resistance due to the development of bradycardia from metoprolol use. An episode of palpitations led to an emergency room visit where atrial fibrillation was confirmed. His medical history includes sick sinus syndrome and hypercholesterolemia, managed with atorvastatin. The patient reports no new symptoms related to benign prostatic hyperplasia, confirming stable prostate-specific antigen levels. An echocardiogram revealed considerable dilation of the right atrium and right ventricular cavity with a normal ejection fraction, suspected to be secondary to pulmonary conditions and corroborated by myocardial MRI findings of moderate right atrial dilation. Routine healthcare includes the ongoing assessment of right shoulder subacromial impingement with probable partial thickness rotator cuff injury. Health Maintenance - Continues on atorvastatin 10 mg daily for hypercholesterolemia management. - Anticoagulation therapy with Eliquis 5 mg twice daily for atrial fibrillation. - Gastroesophageal reflux management with omeprazole. - Upcoming plans for a sleep study to assess potential obstructive sleep apnea. - Blood work monitoring at least twice yearly due to anticoagulation therapy to assess renal function. - Updated vaccines as recent flu season and still considering COVID-19 and respiratory syncytial virus risks. Social History Review of Systems - Cardiovascular: Reports no dizziness or chest pain; denies new onset of palpitations but aware of irregularities. - Musculoskeletal: No new concerns were raised. - General: Denies recent symptoms associated with respiratory infections; received recent influenza vaccine. Physical Exam - Cardiovascular- Observation of dilated right atrium and ventricular cavity in echocardiogram. - Musculoskeletal- Known right shoulder subacromial impingement. Results - Echocardiogram showed an EF of 65-70%, severely dilated right atrium and ventricular cavity, mild dilatation of the sinus of Valsalva, and mild left atrial dilation. - Holter monitor reported an average heart rate of 61 bpm with no significant pauses. - Blood work from March 10 showed normal biomarkers and renal function; further cholesterol testing due. Plan Patient management will maintain anticoagulation with Eliquis alongside systematic renal and liver markers testing. The echocardiogram manages revealing cardiac dilatation concerns with further exploration through sleep apnea screening. Continual monitoring of the patient?s right shoulder condition through orthopedics is acknowledged, with hypercholesterolemia being managed through atorvastatin administration. Supplementary lifestyle guidance includes ongoing cardiovascular precautions in diet and leisure for optimal management, with surveillance on systemic indicators through regular testing and evaluation. Patient was informed and verbally consented to the use of an ambient scribe for clinic note documentation during this visit. Discussion Notes I discussed the necessity for continuous anticoagulation with Eliquis to address the risks associated with atrial fibrillation and potential complications, including close monitoring of renal function in line with therapeutic standards. I advised proceeding with the sleep study to evaluate obstructive sleep apnea as a contributing factor to the patient's cardiac conditions, especially right atrial and ventricular dilation. Emphasizing the understanding that given the patient?s history of cardiovascular anomalies, precautions such as routine cholesterol management with atorvastatin remain essential, supplemented by vigilant cardiovascular and systemic health assessments. I addressed the present subacromial impingement, spotlighting orthopedic follow-ups to evaluate the necessity for clinical intervention. The patient was informed about taking proactive measures during flu season, expressly citing recent vaccinations and standard protocol enactment. Patient Instructions - Continue taking Eliquis 5 mg twice daily and atorvastatin 10 mg daily as prescribed. - Monitor and record any episodes of palpitations or changes in symptoms. - Adhere to a low-cholesterol diet and engage in moderate physical activity. - Schedule and complete the sleep study to assess potential sleep apnea. - Conduct routine lab work at least twice yearly to monitor kidney function. - Stay up-to-date with vaccinations, including the seasonal flu vaccine. - Report any significant bruises or bleeding to assess impacts of anticoagulation. - Follow-up with orthopedics as advised for right shoulder care. - Safeguard against flu and keep aware during the current respiratory illness season. Orders: Orders Complete Blood Count Auto Diff Today E78.00 - Pure hypercholesterolemia, unspecified Comprehensive Met. Panel Today E78.00 - Pure hypercholesterolemia, unspecified Lipid Panel Today E78.00 - Pure hypercholesterolemia, unspecified Thyroid Stimulating Hormone Today E78.00 - Pure hypercholesterolemia, unspecified Vitamin B12 and Folate Today E78.00 - Pure hypercholesterolemia, unspecified Magnesium Today E78.00 - Pure hypercholesterolemia, unspecified B Type Natriuretic Peptide Today E78.00 - Pure hypercholesterolemia, unspecified Influenza [id number] Immunization Today Z23 - Encounter for immunization Free T4 (Free Thyroxine) Today E78.00 - Pure hypercholesterolemia, unspecified Prostate Specific Antigen Scr Today E78.00 - Pure hypercholesterolemia, unspecified
[2024-04-14 09:33] VITALS: BP 110/68; PULSE 40; TEMP 36.1; O2SAT 97; BMI 26.0
--- OUTSIDE RECORDS SUMMARY | 2024-04-14 10:00 | XMS_ITS | Data Portability ---
Author Organization [facility], [facility] Address [address] [place] [address] Care Team Providers Care Plant Taxonomist Name Role Phone EDSON DE LA CRUZ Primary Care Provider [phone] Assessment Encounter Date Assessment Date Assessment LastModified by Organization Details LastModified Time 03/20/2024 03/20/2024 Chief Complaint: Right shoulder pain HPI: 68-year-old male presents with right shoulder pain. Initial injury occurred during summer 2023 when patient made sudden movement due to a bee, resulting in acute pain. Subsequently experienced multiple falls, including one on ice, exacerbating the condition. Reports persistent pain for approximately 3 months, particularly with shoulder movement and when rolling. Pain radiates across the collarbone when sitting. 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 Notes left shoulder also has chronic issues. Pain is primarily located in the anterior shoulder region. No previous treatment mentioned for current episode. He has a past history of cardiac issues, GERD and hyperlipidemia. He is on Eliquis. Medications are listed in the medical record. No allergies to medications. He is and retired. Denies tobacco use. No personal or family history blood clots. Past medical, surgical, family and social history; Medications, Allergies and 12-point review of systems have been reviewed, updated and charted. Physical Examination: Height and weight as noted in chart. Constitutional: Patient pleasant, well appearing and in NAD. Mental status: Patient is alert and oriented to person, place and time. No short-term memory deficits. Psychiatric: Mood and affect are appropriate. Head: Normocephalic and atraumatic. Exterior inspection of the ears and nose was unremarkable. Hearing grossly intact. Eyes: Sclera are not blue. washhouse worker II-XII are grossly intact. Full extraocular motion. Neck: Supple with age-appropriate ROM. No tracheal deviation. No obvious JVD. Respiratory: Non-labored breathing. Symmetric excursion. No audible wheezing or crackles. Skin: No rashes, lesions, wounds to the upper extremities. Normal turgor and coloration. Musculoskeletal: On examination of the right shoulder, there is no effusion, erythema or ecchymosis. Active shoulder elevation to 165? ? ? bilaterally. External rotation to 50? ? ? laterally. Internal rotation to the thoracolumbar junction. 4+/5 strength resisted abduction right with associated discomfort. Positive impingement signs. Mild acromial joint and biceps tenderness. Imaging: X-rays ordered, obtained and reviewed at [facility]. These images included 3 views, Grashey, scapular and axillary views of the right shoulder. No acute fractures or dislocations. Normal glenohumeral joint space. Normal acromial humeral distance. Type II acromion. Moderate acromial clavicular joint arthrosis. Procedure: Injection of Steroid and Anesthetic, Subacromial Space All reasonable risks and benefits of injection were discussed. Risks include bleeding, infection, non-relief of symptoms, recurrence of symptoms, allergic type reaction, scarring, fat atrophy, and hyperglycemia. After obtaining consent, the right posterior shoulder was prepped in sterile fashion using an alcohol swab. The skin was anesthetized with ethyl chloride spray, wiped again with alcohol, and an injection of 1cc of Kenalog 40 and 4cc? s of Lidocaine 1% was performed using a 22-gauge needle into the subacromial space. The medication flowed freely and the patient tolerated this procedure well. The patient was instructed to avoid strenuous activity following the injection for approximately 24 to 48 hours, ice the area as needed and then a gradual return to normal activities is allowed. Impression and Plan: 68-year-old right-hand dominant male with a several month history of right shoulder pain with overall history and exam consistent with right shoulder subacromial impingement and probable underlying partial thickness rotator cuff tear, which we discussed is very common in his age group. I discussed options and recommended a conservative course. This included a subacromial injection of steroid to the symptomatic shoulder today that the patient tolerated very well. I stressed the importance of activity modification with avoidance of exacerbating activities including heavy lifting overhead or lifting heavy away from the body. I discussed good lifting mechanics. I also recommended a low-dose Tylenol as needed. Should symptoms fail to improve and/or recur despite these conservative measures over the next 6-8 weeks, I recommend they call back for another visit. All questions and concerns were addressed. Today's visit involved examining the patient, reviewing the history, reviewing the radiographic studies, counseling the patient regarding treatment options, and the administrative tasks including placing orders, preparing patient information and home handouts and preparing the visit note. This note was generated with [facility] speech recognition fulfillment mail clerk dictation software. Please excuse any errors that may have been overlooked during review of this note. Sometimes, these errors may affect the content or meaning of a given sentence. Please call for corrections. [email or web address] Not available 03/20/2024 10:59:40 Plan of Treatment Reminders Order Date Submit Date Provider Last Modified By Organization Details Last Modified Time Details Appointments None recorded. Lab None recorded. Referral None recorded. Procedures None recorded. Surgeries None recorded. Imaging XR, shoulder, 2 or more view - rm 219 rt shldr cz protocol 2024 025 [email or web address] [facility], [address], [address], [place], [address], 5 10:42:38 XR, hand, 3 or more view - RECHECK PT 3 VIEWS BILATERAL HAND RM 108 2024 025 [email or web address] [facility], [address], [address], [place], [address], 5 15:59:33 Medication Orders None recorded. Patient TargetsNo targets recorded. Patient InstructionsNo instructions recorded. Reason for Referral None Reported. Results Created Date Observation Date Name Description Value Unit Range Abnormal Flag Note LastModifiedBy Organization Detail LastModifiedTime 12/12/19 24 09/14/2023 emerg ency dept. visit * No observ ation record ed. [address] (Medical Records) [address] [place], [address], 12/28/2023 11:36:35 12/12/19 24 09/14/2023 emerg ency dept. visit * No observ ation record ed. [email or web address] [place] [address] (Medical Records) [address] [facility], [place], [address], 12/28/2023 11:36:41 02/26/19 25 02/27/2024 XR, hand, 3 or more view [email or web address]:/ [email or web address] ?Encry pted=s hAaTro YD8dLq bEUv6g %2BXZw aYqtaq 0bqfl% 2Fg9IQ a4ajBk vP9nXo QUaueC m3YtLR FvZlgJ JJ8[place] HZtai3 4z2487 AC0Kqb 3mNUKe hKiQtr MwF INTERFACE [facility] [address], [place], [address], 02/27/2024 14:23:57 02/26/19 25 02/27/2024 XR, hand, 3 or more view [email or web address] ?Encry pted=s hAaTro YD8dLq bEUv6g %2BXZw aYqtaq 0bqfl% 2Fg9IQ a4ajBk vP9nXo QUaueC m3YtLR [facility]8[place] HZtai3 3u4813 AC0Kqb 3mNUKe hKiQtr MwF INTERFACE [facility] [address], [place], [address], 02/27/2024 14:24:00 03/20/19 25 03/20/2024 XR, shoul nuvia, 2 or more view [email or web address] ?Encry pted=s hAaTro YD8dLq bEUv6g %2BXZw aYqtaq 0bqfl% 2Fg9IQ a4ajBk vP9nXo QUaueC m3YtLR FvZlgJ JJ8mAn HZtai3 0k4178 AC0Kqb HiEVqO lKiQtr MwF INTERFACE [facility] [address], [place], [address], 03/20/2024 10:33:23 03/20/19 25 03/20/2024 XR, shoul nuvia, 2 or more view [email or web address]:/ [email or web address] ?Encry pted=s hAaTro YD8dLq bEUv6g %2BXZw aYqtaq 0bqfl% 2Fg9IQ a4ajBk vP9nXo QUaueC m3YtLR FvZlgJ JJ8mAn HZtai3 2h6923 AC0Kqb HiEVqO lKiQtr MwF INTERFACE [facility] [address], [place], [address], 03/20/2024 10:33:25 Result Notes None recorded. Procedures Surgical History Date Name Laterality Status Provider Name and Address Organization Details Recorded Time 5 Sports Shoulder completed Suresh Fair MD [address] [facility], [place], [address], [facility] 03/20/2024 10:59:46 5 Tendon Sheath Kenalog Injection, L/R completed Yvonne Finley PA-C [address] [facility], [place], [address], [facility] 02/27/2024 15:45:18 Imaging Results Imaging Date Name Status LastModified by Pili mathew Details LastModified Time 09/14/2023 emergency dept. visit* completed [address] (Medical Records) [address] [place] [address], [address], 12/28/2023 11:36:35 09/14/2023 emergency dept. visit* completed [address] (Medical Records) [address] [place], [address], 12/28/2023 11:36:41 02/27/2024 XR, hand, 3 or more view completed INTERFACE [facility] [address], [place], [address], 02/27/2024 14:23:57 02/27/2024 XR, hand, 3 or more view completed INTER[facility] [address], [place], [address], 02/27/2024 14:24:00 03/20/2024 XR, shoulder, 2 or more view completed INTERFACE [facility] [address], [place], [address], 03/20/2024 10:33:23 03/20/2024 XR, shoulder, 2 or more view completed INTER[facility] [address], [place], [address], 03/20/2024 10:33:25 Procedure Notes None recorded. Medical Equipment None [...] active Not Available Not Available Not Available Eliquis 5 mg tablet active Not Available Not Available Not Available Vitals Date Recorded Body weight Provider Name an d Address Organization Details Last Updated DateTime 12/07/2023 21665.26 g charu orr [facility] 12/07/2023 10:48:34 Date Recorded Body height Body mass index (BMI) Body weight Provider Name and Address Organization Details Last Updated DateTime 02/27/2024 172.72 cm 26.8 kg/m2 42036.26 g Alannah Bunn [facility] 02/27/2024 14:11:15 Date Recorded Body height Body mass index (BMI) Body weight Provider Name and Address Organization Details Last Updated DateTime 03/20/2024 175.26 cm 26.3 kg/m2 58286.44 g JOHNY GUTIERREZ [facility] 03/20/2024 11:35:23 Social History None recorded. Functional Status None recorded. Mental Status None recorded. Family History Nothing Reported. Medical History No medical history recorded. Past Encounters Encounter ID Performer Location Encounter Start Date Encounter Closed Date Diagnosis/Indication Diagnosis SNOMED-CT Code Diagnosis ICD10 Code Diagnosis Note [id number] Yvonne Finley PA-C [facility] [address] [place] [address] 12/07/2023 10:18:06 01/02/2024 10:37:17 Pain of bilateral hands [id number] 4838065 M79.641 M79.360 [id number] Yvonne Finley PA-C [facility] [address] [place] [address] 02/27/2024 14:00:54 03/10/2024 14:29:10 Pain of bilateral hands [id number] 7754133 M79.641 M79.642 Bilateral acquired trigger finger of index fingers 0303650605 9110733 M65.321 M65.449 [id number] Suresh Fair MD [facility] [address] [place] [address] 03/20/2024 09:44:56 04/07/2024 09:39:55 Pain of right shoulder joint 7055305403 7041040 M25.511 Impingemen t syndrome of right shoulder region 0818370473 99723 M75.41 Health Concerns Section Related Observation LastModified by Organization Detai ls LastModified Time None Recorded Concern Status LastModified by Organization Details LastModified Time None Recorded Advance Directives Directive None Recorded Payers Encounter Date Sequence Insurance Name Policy Number Policy Ho Covered Member ID Ho Member ID Guarantor Name 12/07/2023 1 [facility] (MEDICARE REPLACEMENT/A DVANTAGE - PPO) [id number] Kristopher Roger Sb [id number] Kristopher Roger Sb 02/27/2024 1 [facility] (MEDICARE REPLACEMENT/A DVANTAGE - PPO) [id number] Kristopher Roger Sb [id number] Kristopher Roger Sb 03/20/2024 1 [facility] (MEDICARE REPLACEMENT/A DVANTAGE - PPO) [id number] Kristopher Roger Sb [id number] Kristopher Roger Sb Notes Date Note Type Note Provider Name and Address Organization Details Recorded Time 12/07/2023 text/html I am seeing this patient under the supervision of Dr. Zaidi who was available but who did not see the patient.HPI: Patient is a 66-year-old male presenting to [...] bilateral index fingers now. He went to [facility] where they gave him a cortisone injection [...] Reports he had an EMG done at [facility] as well as x-rays but did not [...] over A1 enio of the bilateral index fingers. Nontender about the rest of the finger. Negative median nerve compression test bilaterally. Peripheral, vascular, lymphatic examination, skin, neurological, coordination, reflexes, sensation are within normal limits.X-rays ordered, obtained and reviewed independently today at [facility]: None indicated or performed today.Impression:1. Bilateral index finger flexor tenosynovitis status post 1 cortisone injection . Resolved left ring and right middle trigger fingers status post 1 cortisone injection . Status post left middle trigger finger release April [address] Benitez4. Right carpal tunnel syndrome confirmed on EMGPlan: I discussed my findings and the situation with the patient today. We discussed potential treatment options at this time. Patient would like to hold off on cortisone injections today as the most bothersome one is his right index finger and it is too soon to try another cortisone injection for that one. 2 month follow-up was arranged at which point we can inject bilateral index finger flexor tendons if needed. He will work on getting the EMG and x-rays sent to us. If we are unable to get x-rays from [facility], we obtain bilateral hand x-rays during next visit to evaluate for OA that could be causing some pain and swelling and stiffness in his fingers. Patient agrees with this plan. All questions were answered.Speech recognition fulfillment mail clerk software was used to create portions of this document. An attempt at proofreading has been made to minimize errors. Please call for corrections. Yvonne Finley PA-C [address] [place] [address] [address], [place], [address], [facility] 12/07/2023 11:55:45 02/27/2024 text/html Reports the inje ction that he had for his right index I am seeing this patient under the supervision of Dr. Zaidi who was available but who did not see the patient. Clinical update: Patient is here today for recheck. He states the right index finger flexor tendon cortisone injection he recieved at [facility] was not helpful. He would like to [...] bilateral index fingers now. He went to [facility] where they gave him a cortisone injection [...] Reports he had an EMG done at [facility] as well as x-rays but did not [...] ordered, obtained and reviewed independently today at [facility]: 4 view x-rays of bilateral hands reveal [...] this plan. All questions were answered.Speech recognition fulfillment mail clerk software was used to create portions of this document. An attempt at proofreading has been made to minimize errors. Please call for corrections. Yvonne Finley PA-C [address] [place] [address] [address], [place], [address], [facility] 02/27/2024 15:46:21
--- OUTSIDE RECORDS SUMMARY | 2024-04-14 10:01 | XMS_ITS | Patient Health Record ---
Author Organization [facility] Address [address] [place] [address] Care Team Providers Care Glass Block Bender Name Role Phone Tal Cuellar MD Primary Care Provider Sukhdev Cai Unavailable [phone] Pascual Salmon MD Unavailable Unavailable ALLERGIES No Known Allergies RESULTS Component Value Reference Range Notes Pathology (Not yet reviewed by provider) Interpretation: Performing Lab:[facility], [address] [place] [id number] Notes/Report: REASON FOR REFERRAL No Information MEDICATIONS [...] Notes Problem Dysphagia (R13.10) Active confirmed Dysphagia (48874716) Problem Duodenitis (K29.80) Active confirmed Duodenitis (39096354) Problem IBS (irritable bowel syndrome) (K58.9) Active confirmed Irritable bowel syndrome (44151324) Problem Abnormal barium swallow (R93.3) Active confirmed Barium swallow abnormal (820260462) Problem Chronic gastritis (K29.50) Active confirmed Chronic gastrit is (7845213) Problem Gastro-esophag eal reflux disease with esophagitis, without bleeding (K21.00) Active confirmed Gastroesophagea l reflux disease with esophagitis (disorder) (848582617) VITAL SIGNS Blood pressure diastolic 00 mm Hg 09/04/2023 Height 5 ft 9 in in 09/04/2023 Blood pressure systolic 00 mm Hg 09/04/2023 Weight 175 lbs 09/04/2023 BMI 25.84 kg/m2 09/04/2023 Encounters Encounter Location Date Provider Diagnosis [facility] [address] [place] [id number] 11/05/2023 Sukhdev Hawkins Gastro-esophageal reflux disease with esophagitis, without bleeding K21.00 ; Other diseases of stomach and duodenum K31.89 ; Hiatal hernia K44.9 ; Chronic gastritis K29.50 ; Duodenitis K29.80 and Abn findings-GI tract R93.3 [facility] [address] [place] [address] 09/04/2023 Sukhdev Hawkins IBS (irritable bowel syndrome) K58.9 ; Dysphagia R13.10 and Abnormal barium swallow R93.3 [facility] [address] [place] [address] 11/06/2023 Sukhdev Hawkins [facility] [address] [address] 11/13/2023 Sukhdev Hawkins ASSESSMENTS Encounter Date Diagnosis [...] R93.3) 09/04/2023 Other Need GI records from [facility]/Delmis Baltazar re: colonoscopies, etc PLAN OF TREATMENT Pending Test Test Name Order Date Pathology 11/05/2023 Future Test Test Name Order Date UPPER GI ENDOSCOPY BALLOOON DILATION OF ESOPH 09/04/2023 Next Appt Details Provider Name:Sukhdev Yates Hawkins , 04/15/2024 10:50:00 AM, [address] [facility], [address], [place], [address], Insurance Providers Payer Name Payer Address Payer Phone Subscriber Number Group Number Insured Name Patient Relationship to Insured Coverage Start Date Coverage End Date [facility] [address] [address] [place] [address] [id number] OLE WILKINS Self - patient is the insured MEDICAL (GENERAL) HISTORY Medical History History ICD Code Afib--Dr. [place] Hyperlipidemia Denies IN,DM,CVA,Lung disease,renal dise ase Describes neg. colonoscopies with [facility]-most recent was approx 2020--in 10 year plan Surgical History Surgery Date(Month/Year) inguinal hernias bilatareal hemorrhoidectomy Prostate laser - Dr. Medrano 5 years ago Trigger finger
--- OUTSIDE RECORDS SUMMARY | 2024-04-14 10:01 | XMS_ITS ---
Author Organization [facility] Address [address] [place] [address] Care Team Providers Care Dryer Operator Name Role Phone Tal Cuellar MD Primary Care Provider Sukhdev Cai Unavailable [phone] Viky CID, Pascual Unavailable Unavailable REASON FOR VISIT schedule office visit with Dr. Hawkins Encounters Encounter Location Date Provider Diagnosis [facility] [address] [place] [address] 11/13/2023 Sukhdev Hawkins PLAN OF TREATMENT Next Appt Details Provider Name:Sukhdev Hawkins , 04/15/2024 10:50:00 AM, [address] [facility], [address], [place], [address],
--- OUTSIDE RECORDS SUMMARY | 2024-04-14 10:01 | XMS_ITS | Continuity of Care Document ---
Author Organization [place] - [facility], HARJEET Ames 2nd floor Address [address] [place] [address] Care Team Providers Care Associate Data Scientist Name Role Phone EDSON DE LA CRUZ Primary Care Provider Assessment Encounter Date Assessment Date Assessment LastModified [...] grossly intact. Eyes: Sclera are not blue. welt treater II-XII are grossly intact. Full extraocular motion. [...] Imaging: X-rays ordered, obtained and reviewed at [facility]. These images included 3 views, Grashey, scapular [...] visit note. This note was generated with [facility] speech recognition hardwood floor refinisher dictation software. Please excuse any errors that may have been overlooked during review of this note. Sometimes, these errors may affect the content or meaning of a given sentence. Please call for corrections. Not available 03/20/2024 10:59:40 Plan of Treatment Reminders Order Date Submit Date Provider Last Modified By Organization Details Last Modified Time Details Appointments None recorded. Lab None recorded. Referral None recorded. Procedures None recorded. Surgeries None recorded. Imaging XR, shoulder, 2 or more view - rm 219 rt shldr cz protocol 2024 025 [email or web address] 5 [facility], [address] [facility], [address], [place], [address], 10:42:38 Medication Orders None recorded. Patient TargetsNo targets recorded. Patient InstructionsNo instructions recorded. Reason for Referral None Reported. Results Created Date Observation Date Name Description Value Unit Range Abnormal Flag Note LastModifiedBy Organization Detail LastModifiedTime 02/26/1902/27/2024 XR, hand, 3 or more view [email or web address] ?Encry pted=s hAaTro YD8dLq bEUv6g %2BXZw aYqtaq 0bqfl% 2Fg9IQ a4ajBk vP9nXo QUaueC m3YtLR FvZlgJ JJ8mAn HZtai3 6i9343 AC0Kqb 3mNUKe hKiQtr MwF INTERFACE [facility] [address], [place], [address], 02/27/2024 14:23:57 02/26/1902/27/2024 XR, hand, 3 or more view [email or web address] ?Encry pted=s hAaTro YD8dLq bEUv6g %2BXZw aYqtaq 0bqfl% 2Fg9IQ a4ajBk vP9nXo QUaueC m3YtLR FvZl JJ8mAn HZtai3 2t0788 AC0Kqb 3mNUKe hKiQtr MwF INTERFACE [facility] [address], [place], [address], 02/27/2024 14:24:00 03/20/19 25 03/20/2024 XR, shoul nuvia, 2 or more view [email or web address] ?Encry pted=s hAaTro YD8dLq bEUv6g %2BXZw aYqtaq 0bqfl% 2Fg9IQ a4ajBk vP9nXo QUaueC m3YtLR Zl [facility] HZtai3 9g3508 AC0Kqb HiEVqO lKiQtr MwF INTERFACE [facility] [address], [place], [address], 03/20/2024 10:33:23 03/20/19 25 03/20/2024 XR, shoul nuvia, 2 or more view [email or web address] ?Encry pted=s hAaTro YD8dLq bEUv6g %2BXZw aYqtaq 0bqfl% 2Fg9IQ a4ajBk vP9nXo QUaueC m3YtLR FvZl JJ8mAn HZtai3 4u3012 AC0Kqb HiEVqO lKiQtr MwF INTERFACE [facility] [address], [place], [address], 03/20/2024 10:33:25 Result Notes None recorded. Procedures Surgical History Date Name Laterality Status Provider Name and Address Organization Details Recorded Time 5 Sports Shoulder completed Suresh Fair MD [address], [place], [address], [facility] 03/20/2024 10:59:46 5 Tendon Sheath Kenalog Injection, L/R completed Yvonne Finley PA-C [address], [place], [address], [facility] 02/27/2024 15:45:18 Imaging Results None recorded. Procedure [...] Updated DateTime 03/20/2024 175.26 cm 26.3 kg/m2 92703.44 g JOHNY CALLEZ [facility] 03/20/2024 11:35:23 Social History None recorded. Functional Status None recorded. Mental Status None recorded. Family History Nothing Reported. Medical History No medical history recorded. Past Encounters Encounter ID Performer Location Encounter Start Date Encounter Closed Date Diagnosis/Indication Diagnosis SNOMED-CT Code Diagnosis ICD10 Code Diagnosis Note [id number] RAYMOND Stahl [address] [place] [address] 02/27/2024 14:00:54 03/10/2024 14:29:10 Pain of bilateral hands [id number] 6374905 M79.641 M79.642 Bilateral acquired trigger finger of index fingers 0979177357 5006504 M65.321 M65.968 [id number] MD HARJEET Rowland 2nd floor [address] [place] [address] 03/20/2024 09:44:56 04/07/2024 09:39:55 Pain of right shoulder joint [id number] 8169192 M25.511 Impingemen t syndrome of right shoulder region 3981032803 52002 M75.41 Health Concerns Section Related Observation LastModified by Organization Detai ls LastModified Time None Recorded Concern Status LastModified by Organization Details LastModified Time None Recorded Payers Encounter Date Sequence Insurance Name Policy Number Policy Ho Covered Member ID Ho Member ID Guarantor Name 03/20/2024 1 [facility] (MEDICARE REPLACEMENT/A DVANTAGE - PPO) [id number] Kristopher Basurto [id number] Kristopher Basurto
--- OUTSIDE RECORDS SUMMARY | 2024-04-14 10:01 | XMS_ITS ---
Author Organization [facility] Address [address] [place] [address] Care Team Providers Care Valve Fitter Name Role Phone Tal Cuellar MD Primary Care Provider Sukhdev Cai Unavailable [phone] Viky CID, Pascual Unavailable Unavailable REASON FOR VISIT abn barium swallow,dysphagia PROBLEMS Problem Type ICD Code Onset Dates Problem Status W/U Status Risk SNOMED Code Notes Problem Gastro-esophag eal reflux disease with esophagitis, without bleeding (K21.00) Active confirmed Gastroesophagea l reflux disease with esophagitis (disorder) (678945217) Problem Chronic gastritis (K29.50) Active confirmed Chronic gastrit is (4270089) Problem Duodenitis (K29.80) Active confirmed Duodenitis (27789696) Encounters Encounter Location Date Provider Diagnosis [facility] Outpatient [address] [place], [place] [id number] 11/05/2023 Sukhdev Hawkins Gastro-esophageal reflux disease with [...] Provider Name:Sukhdev Hawkins , 04/15/2024 10:50:00 AM, [address] [place] [address], [address], [place], [address],
--- OUTSIDE RECORDS SUMMARY | 2024-04-14 10:01 | XMS_ITS ---
Author Organization [facility] Address [address] [place] [address] Care Team Providers Care Bonus Clerk Name Role Phone Tal Cuellar MD Primary Care Provider Sukhdev Cai Unavailable [phone] Viky CID, Pascual Unavailable Unavailable REASON FOR VISIT 40 mg omeprazole Rx MEDICATIONS Medication SIG (Take, Route, Fr equency, Duration) Notes Start Date End Date Status Omeprazole 40 MG 1 Orally Once a day every morning for 30 day(s) 11/06/2023 Active Encounters Encounter Location Date Provider Diagnosis [facility] [address] [place] [address] 11/06/2023 Sukhdev Hawkins PLAN OF TREATMENT Medication Medication Name Sig Start Date Stop Date Notes Omeprazole 40 MG 1 Orally Once a day every morning for 30 day(s) 11/06/2023 Next Appt Details Provider Name:Sukhdev Hawkins , 04/15/2024 10:50:00 AM, [address] [place] [address], [address], [place], [address],
== END 2024-04-14 10:09 | disposition home or self-care (01) ==
PROVIDERS: PCP Internal Medicine; Visit Provider Internal Medicine
DX: I48.0 Paroxysmal atrial fibrillation (principal); I49.5 Sick sinus syndrome; N40.1 Benign prostatic hyperplasia with lower urinary tract symptoms; N13.8 Other obstructive and reflux uropathy; E78.00 Pure hypercholesterolemia, unspecified; G56.03 Carpal tunnel syndrome, bilateral upper limbs; K29.60 Other gastritis without bleeding; Z23 Encounter for immunization

== ENCOUNTER → 2024-04-14 09:15 | Outpatient (BNVA) | payer MEDICARE, SELFPAY | PROVIDERS: PCP Internal Medicine; Visit Provider Internal Medicine | DX: Z23 Encounter for immunization (principal); I48.0 Paroxysmal atrial fibrillation; N40.1 Benign prostatic hyperplasia with lower urinary tract symptoms; N13.8 Other obstructive and reflux uropathy; E78.00 Pure hypercholesterolemia, unspecified; G56.03 Carpal tunnel syndrome, bilateral upper limbs; K29.60 Other gastritis without bleeding; I49.5 Sick sinus syndrome | CPT/HCPCS: 90471; 90656; 99212 ==

== ENCOUNTER 2024-04-15 10:06 | Outpatient (REF) | payer MEDICARE, SELFPAY ==
[2024-04-15 10:30] LABS: MANUAL DIFF FLAG NO
[2024-04-15 11:01] LABS: Basophils Percent Auto 0.7 % (0-2); Eosinophils Absolute Auto 0.1 X10*3/uL (0.0-0.4); Hematocrit 43.9 % (42.0-52.0); Hemoglobin 15.6 g/dl (14.0-18.0); Imm Gran Abs Auto 0.04 X10*3/uL (0.00-0.03); Imm Gran Pct Auto 0.7 % (0.0-0.4); Lymphocytes Absolute Auto 1.2 X10*3/uL (1.2-4.9); Lymphocytes Percent Auto 19.8 % (20-40); Mean Corpuscular HGB Conc 35.5 g/dl (31.0-36.0); Mean Corpuscular Hemoglobin 32.5 pg (27.0-33.0); Mean Corpuscular Volume 91.5 fL (80.0-98.0); Mean Platelet Volume 9.2 fL (9.4-12.4); Monocytes Absolute Auto 0.4 X10*3/uL (0.1-1.2); Monocytes Percent Auto 7.5 % (2-11); Neutrophils Absolute Auto 4.1 x10*3/uL (2.0-8.3); Neutrophils Percent Auto 70.3 % (45-73); Platelet Count 201 X10*3/uL (160-400); Red Cell Distribution Width 12.6 % (11.0-16.0); White Blood Count 5.9 X10*3/uL (4.8-10.8)
[2024-04-15 11:12] LABS: Appearance Urine Cloudy; Color Urine Yellow; Glucose Urine UA Negative (Negative); Leukocyte Esterase Urine Negative (Negative); Nitrite Urine Negative (Negative); PH 5.5 (5.0-9.0); Urine Blood Negative (Negative); Urine Ketones Negative (Negative); Urine Protein Negative (Neg-Trace)
[2024-04-15 11:21] LABS: B Type Natriuretic Peptide 57 pg/mL (<100)
[2024-04-15 11:36] LABS: Alanine Aminotransferase 27 U/L (0-40); Albumin Level 4.2 g/dL (3.5-5.0); Alkaline Phosphatase 74 U/L (39-117); Anion Gap 10 (12-20); Aspartate Amino Transferase 27 U/L (5-37); Bilirubin Total 0.6 mg/dL (0.0-1.0); Blood Urea Nitrogen 12 mg/dL (9-16); Calcium 8.8 mg/dL (8.4-10.2); Carbon Dioxide 26 mmol/L (22-29); Chloride 108 mmol/L (96-108); Cholesterol 187 mg/dL (<200); Estimated Glomerular Filt Rate > 60; Glucose Random 96 mg/dL (60-115); HDL Cholesterol 65 mg/dL (>40); LDL Cholesterol Calculated 104 mg/dL (<100); Magnesium 2.3 mg/dL (1.6-2.6); Potassium 4.2 mmol/L (3.3-5.1); Sodium 140 mmol/L (135-145); Total Protein 7.2 g/dL (6.5-8.0); Triglycerides 93 mg/dL (<150)
[2024-04-15 11:50] LABS: Prostate Specific Antigen 1.22 ng/mL (<0.05-4.0)
[2024-04-15 11:56] LABS: Free T4 (Free Thyroxine) 0.98 ng/dL (0.71-1.85); Thyroid Stimulating Hormone 1.72 uIU/mL (0.32-4.0)
--- OUTSIDE RECORDS SUMMARY | 2024-04-15 12:02 | XMS_ITS | Data Portability ---
Author Organization [facility], [facility] [place] Address [address] [place] [address] Care Team Providers Care Pillow Cleaner Name Role Phone EDSON DE LA CRUZ [...] grossly intact. Eyes: Sclera are not blue. 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 Full extraocular motion. [...] Imaging: X-rays ordered, obtained and reviewed at [facility]. These images included 3 views, Grashey, [...] visit note. This note was generated with [facility] speech recognition lift mechanic dictation software. Please excuse any errors that may have been overlooked during review of this note. Sometimes, these errors may affect the content or meaning of a given sentence. Please call for corrections. [email or web address] Not available 03/20/2024 10:59:40 Plan of Treatment Reminders Order Date Submit Date Provider Last Modified By Organization Details Last Modified Time Details Appointments None recorded. Lab None recorded. Referral None recorded. Procedures None recorded. Surgeries None recorded. Imaging XR, shoulder, 2 or more view - rm 219 rt shldr cz protocol 2024 025 [email or web address] 5 [facility], [address], [address], [place], [address], 5 10:42:38 XR, hand, 3 or more view - RECHECK PT 3 VIEWS BILATERAL HAND RM 108 2024 025 [email or web address] [facility], [address], [address], [place], [address], 5 15:59:33 Medication Orders None recorded. Patient TargetsNo targets recorded. Patient InstructionsNo instructions recorded. Reason for Referral None Reported. Results Created Date Observation Date Name Description Value Unit Range Abnormal Flag Note LastModifiedBy Organization Detail LastModifiedTime 12/12/19 24 09/14/2023 emerg ency dept. visit * No observ ation record ed. [address] (Medical Records) [address] [place], [address], 12/28/2023 11:36:35 12/12/19 24 09/14/2023 emerg ency dept. visit * No observ ation record ed. [email or web address] [place] [address] (Medical Records) [address] [facility], [place], [address], 12/28/2023 11:36:41 02/26/19 25 02/27/2024 XR, hand, 3 or more view [email or web address] ?Encry pted=s hAaTro YD8dLq bEUv6g %2BXZw aYqtaq 0bqfl% 2Fg9IQ a4ajBk vP9nXo QUaueC m3YtLR FvZlgJ JJ8Whitt HZtai3 3t1234 AC0Kqb 3mNUKe hKiQtr MwF INTERFACE [facility] [address], [place], [address], 02/27/2024 14:23:57 02/26/19 25 02/27/2024 XR, hand, 3 or more view [email or web address] ?Encry pted=s hAaTro YD8dLq bEUv6g %2BXZw aYqtaq 0bqfl% 2Fg9IQ a4ajBk vP9nXo QUaueC m3YtLR [facility]itt HZtai3 1t1443 AC0Kqb 3mNUKe hKiQtr MwF INTERFACE [facility] [address], [place], [address], 02/27/2024 14:24:00 03/20/19 25 03/20/2024 XR, shoul nuvia, 2 or more view [email or web address] ?Encry pted=s hAaTro YD8dLq bEUv6g %2BXZw aYqtaq 0bqfl% 2Fg9IQ a4ajBk vP9nXo QUaueC m3YtLR FvZlgJ JJ8mAn HZtai3 5a7960 AC0Kqb HiEVqO lKiQtr MwF INTERFACE [facility] [address], [place], [address], 03/20/2024 10:33:23 03/20/19 25 03/20/2024 XR, shoul nuvia, 2 or more view [email or web address] ?Encry pted=s hAaTro YD8dLq bEUv6g %2BXZw aYqtaq 0bqfl% 2Fg9IQ a4ajBk vP9nXo QUaueC m3YtLR FvZlgJ JJ8mAn HZtai3 8h6674 AC0Kqb HiEVqO lKiQtr MwF INTERFACE [facility] [address], [place], [address], 03/20/2024 10:33:25 Result Notes None recorded. Procedures Surgical History Date Name Laterality Status Provider Name and Address Organization Details Recorded Time 5 Sports Shoulder completed Suresh Fair MD [address] [facility], [place], [address], [facility] 03/20/2024 10:59:46 5 Tendon Sheath Kenalog Injection, L/R completed Yvonne Finley PA-C [address] [facility], [place], [address], [facility] 02/27/2024 15:45:18 Imaging Results Imaging Date Name Status LastModified by Pili mathew Details LastModified Time 09/14/2023 emergency dept. visit* completed [address] (Medical Records) [address] [place] [address], [address], 12/28/2023 11:36:35 09/14/2023 emergency dept. visit* completed [address] (Medical Records) [address] [place], [address], 12/28/2023 11:36:41 02/27/2024 XR, hand, 3 or more view completed INTERFACE [facility] [address], [place], [address], 02/27/2024 14:23:57 02/27/2024 XR, hand, 3 or more view completed INTERFACE [facility] [address], [place], [address], 02/27/2024 14:24:00 03/20/2024 XR, shoulder, 2 or more view completed INTERFACE [facility] [address], [place], [address], 03/20/2024 10:33:23 03/20/2024 XR, shoulder, 2 or more view completed INTERFACE [facility] [address], [place], [address], 03/20/2024 10:33:25 Procedure Notes None recorded. Medical [...] Address Organization Details Last Updated DateTime 12/07/2023 65527.26 g charu orr [facility] 12/07/2023 10:48:34 Date Recorded Body height Body mass index (BMI) Body weight Provider Name and Address Organization Details Last Updated DateTime 02/27/2024 172.72 cm 26.8 kg/m2 81157.26 g Alannah Bunn [facility] 02/27/2024 14:11:15 Date Recorded Body height Body mass index (BMI) Body weight Provider Name and Address Organization Details Last Updated DateTime 03/20/2024 175.26 cm 26.3 kg/m2 23721.44 g JOHNY GUTIERREZ [facility] 03/20/2024 11:35:23 Social History None recorded. Functional Status None recorded. Mental Status None recorded. Family History Nothing Reported. Medical History No medical history recorded. Past Encounters Encounter ID Performer Location Encounter Start Date Encounter Closed Date Diagnosis/Indication Diagnosis SNOMED-CT Code Diagnosis ICD10 Code Diagnosis Note [id number] Yvonne Finley PA-C [facility] [address] [place] [address] 12/07/2023 10:18:06 01/02/2024 10:37:17 Pain of bilateral hands [id number] 7153308 M79.641 M79.501 [id number] Yvonne Finley PA-C [facility] - [facility] [address] [place] [address] 02/27/2024 14:00:54 03/10/2024 14:29:10 Pain of bilateral hands [id number] 5772773 M79.641 M79.642 Bilateral acquired trigger finger of index fingers 1885288600 3896360 M65.321 M65.742 [id number] Suresh Fair MD [facility] - [facility] [address] [place] [address] 03/20/2024 09:44:56 04/07/2024 09:39:55 Pain of right shoulder joint 3702142721 7791862 M25.511 Impingemen t syndrome of right shoulder region 3625694902 43128 M75.41 Health Concerns Section Related Observation LastModified by Organization Detai ls LastModified Time None Recorded Concern Status LastModified by Organization Details LastModified Time None Recorded Advance Directives Directive None Recorded Payers Encounter Date Sequence Insurance Name Policy Number Policy Ho Covered Member ID Ho Member ID Guarantor Name 12/07/2023 1 [facility] (MEDICARE REPLACEMENT/A DVANTAGE - PPO) [id number] Kristopher Roger Sb [id number] Kristopher Roger Sb 02/27/2024 1 [facility] (MEDICARE REPLACEMENT/A DVANTAGE - PPO) [id number] Kristopher Roger Sb [id number] Kristopher Roger Sb 03/20/2024 1 [facility] (MEDICARE REPLACEMENT/A DVANTAGE - PPO) [id number] Kristopher Roger Sb [id number] Kristopher Roger Sb Notes Date Note Type [...] bilateral index fingers now. He went to [facility] where they gave him a cortisone injection [...] Reports he had an EMG done at [facility] as well as x-rays but did not [...] ordered, obtained and reviewed independently today at [facility]: None indicated or performed today.Impression:1. Bilateral [...] we are unable to get x-rays from [facility], we obtain bilateral hand x-rays during next visit to evaluate for OA that could be causing some pain and swelling and stiffness in his fingers. Patient agrees with this plan. All questions were answered.Speech recognition lift mechanic software was used to create portions of this document. An attempt at proofreading has been made to minimize errors. Please call for corrections. Yvonne Finley PA-C [address] [place] [address] [address], [place], [address], [facility] 12/07/2023 11:55:45 02/27/2024 text/html Reports the inje ction that he had for his right index I am seeing this patient under the supervision of Dr. Zaidi who was available but who did not see the patient. Clinical update: Patient is here today for recheck. He states the right index finger flexor tendon cortisone injection he recieved at [facility] was not helpful. He would like to [...] bilateral index fingers now. He went to [facility] where they gave him a cortisone injection [...] Reports he had an EMG done at [facility] as well as x-rays but did not [...] ordered, obtained and reviewed independently today at [facility]: 4 view x-rays of bilateral [...] this plan. All questions were answered.Speech recognition lift mechanic software was used to create portions of this document. An attempt at proofreading has been made to minimize errors. Please call for corrections. Yvonne Finley PA-C [address] [place] [address] [address], [place], [address], [facility] 02/27/2024 15:46:21
[2024-04-15 12:03] LABS: Folate 9.5 ng/mL (> or = 4.0); Vitamin B12 395 pg/mL (200-900)
== END 2024-04-15 10:07 | disposition home or self-care (01) ==
LOC: HO.LAB 10:06
PROVIDERS: Urology; PCP Internal Medicine; Visit Provider Internal Medicine
DX: I48.0 Paroxysmal atrial fibrillation (principal); N40.1 Benign prostatic hyperplasia with lower urinary tract symptoms; N13.8 Other obstructive and reflux uropathy; E78.00 Pure hypercholesterolemia, unspecified; R30.0 Dysuria; Z12.5 Encounter for screening for malignant neoplasm of prostate
CPT/HCPCS: 36415; 80053; 80061; 81003; 82607; 82746; 83735; 83880; 84153; 84439; 84443; 85025

== ENCOUNTER → 2024-04-29 12:49 | Outpatient (REF) | payer MEDICARE, SELFPAY | LOC: HO.SL 12:49 | PROVIDERS: PCP Internal Medicine; Visit Provider Internal Medicine Cardiovascular Disease | DX: G47.33 Obstructive sleep apnea (adult) (pediatric) (principal); I51.7 Cardiomegaly; R40.0 Somnolence | CPT/HCPCS: 95806 ==

== ENCOUNTER → 2024-04-29 13:01 | Outpatient (BNV) | payer MEDICARE, SELFPAY | PROVIDERS: PCP Internal Medicine; Visit Provider Internal Medicine | DX: G47.33 Obstructive sleep apnea (adult) (pediatric) (principal) | CPT/HCPCS: 95806 ==

== ENCOUNTER 2024-06-11 09:46 | Outpatient (AMB) | payer MEDICARE, SELFPAY ==
--- NOTE | 2024-06-11 09:50 | MHC.OFFVIS ---
Vital Signs 06/11/24 09:51 Height 5 ft 9 in Weight 176 lb 5.917 oz BMI 26.0 BP 120/60 Blood Pressure Location Lt brachial Position Sitting Pulse 49 L Pulse Source Monitor Intake Visit Reasons: 3m follow up w EKG Allergies No Known Allergies [No Known Allergies*] Allergy (Verified 04/14/24 09:32) Medication List - Last Reconciled 06/11/24 by Robson Boston MD apixaban (Eliquis) 5 mg PO BID atorvastatin 10 mg PO DAILY cholecalciferol (vitamin D3) 25 mcg PO DAILY dicyclomine 10 mg PO TID PRN metoprolol tartrate 12.5 mg (1/2 x 25 mg) PO DAILY omeprazole 40 mg PO DAILY HPI Comments Details: Kristopher comes for follow-up. He has been doing well from cardiac perspective. Continues to have no cardiac symptoms at this point in time. Denies any lightheadedness, syncope. No recurrent episodes of atrial fibrillation. Holter monitor did show frequent sinus bradycardia also short episodes of atrial fibrillation with a total burden of 7.5%. He had no symptoms during that time. He underwent a myocardial perfusion imaging for shortness of breath which was negative for ischemia PND comes for follow-up visit today. Takes all his medications. No bleeding issues or neurologic events. [facility] Medical History Bilateral hand numbness Vision changes Bilateral hand pain Dysphagia IBS (irritable bowel syndrome) Hyperlipidemia BPH (benign prostatic hyperplasia) Paroxysmal atrial fibrillation Surgical History Hx of transurethral resection of prostate H/O neck surgery Hx of vasectomy Hx of hernia repair History of radiofrequency ablation (RFA) procedure for cardiac arrhythmia Hx of hemorrhoidectomy History of tonsillectomy and adenoidectomy Family History Father Cancer Lung cancer Mother Cancer Lung cancer Paternal Uncle Lung cancer Paternal Aunt Lung cancer Maternal Grandfather Rectal cancer Social History Household Members: Spouse Are you a primary out of school hours care worker to a significant other at home: No Do you presently have visiting nurse or other home services: No Alcohol intake: current Alcohol intake frequency: 0-2 drinks per day Patient Tobacco Use Status: Former Tobacco user Tobacco use type: Cigarette Years Smoked: quit 1999 14 years old start 2-3 pack aday marijuana e-Cigarette/Vaping Use: Never Used Second Hand Smoke Exposure: Yes Substance Use Type: Marijuana service: No Current occupational status: retired Current occupation: right hand dominant Cognitive needs: No Hearing needs: No Vision needs: No Review of Systems Const Denies weakness ENT Denies dizziness Card Denies chest pain, Denies chest pain with activity, Denies syncope, Denies rapid heart rate, Denies pedal edema, Denies edema, Denies leg edema, Denies lightheadedness, Denies palpitations, Denies dyspnea, Denies dyspnea on exertion and Denies orthopnea Resp Denies cough, Denies dyspnea and Denies dyspnea on exertion GI Denies hematochezia and Denies change in stool character Musc Denies abnormal gait, Denies muscle cramps, Denies muscle weakness, Denies numbness, Denies radiating pain into limb and Denies tingling Neuro Denies abnormal gait, Denies dizziness, Denies syncope, Denies numbness, Denies tingling and Denies weakness Endo Denies palpitations Physical Exam Vital Signs: Last Vital Signs Pulse 49 L 06/11/24 09:51 BP 120/60 06/11/24 09:51 BMI result Body Mass Index 26.0 Const General: cooperative, comfortable, awake and Physically active Nutritional Appearance: thin Orientation/consciousness: patient oriented x3 Limitations: no limitations Neck Neck: Yes trachea midline, Yes supple and Yes no JVD Resp Effort & Inspection: normal respiratory effort Auscultation: clear to auscultation bilaterally Cardio Jugular venous distension: no JVD Palpation: normal PMI Rate: regular rate Rhythm: regular rhythm Heart sounds: S1 normal heart sound present and S2 normal heart sound present GI Auscultation: normal bowel sounds Skin General skin exam: no rashes or lesions noted Neuro General: patient oriented x3 and no focal motor deficits Extrem General: Yes no clubbing, cyanosis or edema Psych Appearance: grossly normal Office Procedures EKG Details: EKG shows sinus bradycardia at 49 beats per minute with first-degree AV block 01285-Eqxxelamzuifmccyw, Complete Assessment & Plan Assessment & Plan (1) Sick sinus syndrome: Code(s): I49.5 - Sick sinus syndrome Category: Medical Plan: Patient with sinus bradycardia even on low-dose of metoprolol. He was no symptoms related to it. This is suggestive sinoatrial emelyn dysfunction. Given lack of symptoms no further therapy is indicated at this point time. May have become issue if he has recurrent atrial fibrillation that requires alternative antiarrhythmic drug therapy and may require pacing therapy at that point in time and/or if he develops symptoms. This was discussed with him. Symptoms associated with sick sinus syndrome was discussed with him. (2) Enlarged RV (right ventricle): Code(s): I51.7 - Cardiomegaly Category: Medical Plan: Enlarged right ventricle without any obvious etiology. Need to rule out intracardiac shunting although less likely. Suggest a SUSHILA. We discussed the risks, benefits, alternatives to the procedure. Understands and agrees. He was this is within normal limits would possibly pursue observation. No signs or symptoms of right heart failure. He was mild sleep apnea which is unlikely to cause significant right ventricular and right atrial enlargement although has a follow-up appointment with sleep specialty in the near future. (3) Paroxysmal atrial fibrillation: Comment: Cardioversion Dr. Boston 1999 Code(s): I48.0 - Paroxysmal atrial fibrillation Category: Medical Plan: Paroxysmal atrial fibrillation having recurrent episodes but without any new symptoms at this point time. Will avoid antiarrhythmic drug therapy unless he develops persistent atrial fibrillation which may require further therapy and may require more in wall therapy with pacing and/or ablation. This was discussed with him. Continue metoprolol therapy. Avoidance of stimulants was discussed. Continue full oral anticoagulation, currently on Eliquis 5 mg b.i.d.. Semi annual renal function test should be pursued. Will follow up in the clinic in 3 months time, sooner p.r.n.. Thank you for allowing me to partake in his care Orders: Orders CA echo transesophageal w con 06/11/24 I51.7 - Cardiomegaly Coding Level of Care Code Est Pt Level 4 (51166) Complex EM visit Add On G2211 Diagnoses Sick sinus syndrome I49.5 Enlarged RV (right ventricle) I51.7 Paroxysmal atrial fibrillation I48.0 CPT Codes EKG - CPT: 88540-Nwkskigocixqralpp, Complete ([id number])
[2024-06-11 09:51] VITALS: BP 120/60; PULSE 49; BMI 26.0
== END 2024-06-11 10:36 | disposition home or self-care (01) ==
LOC: HO.HCS 09:47
PROVIDERS: PCP Internal Medicine; Visit Provider Internal Medicine Cardiovascular Disease
DX: I49.5 Sick sinus syndrome (principal); I51.7 Cardiomegaly; I48.0 Paroxysmal atrial fibrillation
CPT/HCPCS: 93010; 99214; G2211

== ENCOUNTER → 2024-06-11 09:46 | Outpatient (BNVA) | payer MEDICARE, SELFPAY | PROVIDERS: PCP Internal Medicine; Visit Provider Internal Medicine Cardiovascular Disease | DX: I49.5 Sick sinus syndrome (principal); I51.7 Cardiomegaly; I48.0 Paroxysmal atrial fibrillation; R00.1 Bradycardia, unspecified; I44.0 Atrioventricular block, first degree | CPT/HCPCS: 93005; 99212 ==

== ENCOUNTER 2024-07-14 10:49 | Outpatient (AMB) | payer MEDICARE, SELFPAY ==
[2024-07-14 11:03] VITALS: BP 134/70; PULSE 49; O2SAT 96; BMI 26.6
--- NOTE | 2024-07-14 11:03 | MHC.PC.OV ---
Vital Signs 07/14/24 11:03 Height 5 ft 9 in Weight 180 lb 6 oz BMI 26.6 BP 134/70 Blood Pressure Location Lt brachial Position Sitting Pulse 49 L Pulse Source Pulse Oximeter Pulse Oximetry (%) 96 Oxygen Delivery Method Room Air Intake Visit Reasons: [facility] July 23 Horticultural Therapist Required: No Accompanied by: Self / Same As Patient Allergies No Known Allergies [No Known Allergies*] Allergy (Verified 07/14/24 11:20) Medication List - Last Reconciled 07/14/24 by Velvet Lambert PA-C apixaban (Eliquis) 5 mg PO BID atorvastatin 10 mg PO DAILY cholecalciferol (vitamin D3) 25 mcg PO DAILY dicyclomine 10 mg PO TID PRN metoprolol tartrate 12.5 mg (1/2 x 25 mg) PO DAILY omeprazole 40 mg PO DAILY Tobacco use date assessed: 07/14/24 Fall risk assessment: 1 Fall in past year Last assessed Fall Risk: 07/14/24 Dental Screening Dental Screen Date: 07/14/24 Did you have a dental visit in the last 12 months?: Yes Did you have a dental problem in the last 6 months where you did not have access to dental care?: No Was dental information given to patient?: Patient has dentist HPI [facility] July 23 HPI Details 68-year-old male with past medical history of BPH, atrial fibrillation, NICHOLAS, hypercholesterolemia and sick sinus syndrome last seen 04/2024 coming in for preoperative visit.? Patient is scheduled to have rotator cuff surgery with Dr. Fair 07/23/2024. Afib: CHADs-VASC score of 1 - on Eliquis and metoprolol Obstructive sleep apnea: evaluation from neurology tomorrow Has had surgery and anesthesia in the past without complication. No history of ME, CVA, CHF or DM. PFSH Medical History Bilateral hand numbness Vision changes Bilateral hand pain Dysphagia IBS (irritable bowel syndrome) Hyperlipidemia BPH (benign prostatic hyperplasia) Paroxysmal atrial fibrillation Surgical History Hx of transurethral resection of prostate H/O neck surgery Hx of vasectomy Hx of hernia repair History of radiofrequency ablation (RFA) procedure for cardiac arrhythmia Hx of hemorrhoidectomy History of tonsillectomy and adenoidectomy Family History Father Cancer Lung cancer Mother Cancer Lung cancer Paternal Uncle Lung cancer Paternal Aunt Lung cancer Maternal Grandfather Rectal cancer Social History Household Members: Spouse Housing: Other Are you a primary adult daycare coordinator to a significant other at home: No Do you presently have visiting nurse or other home services: No Alcohol intake: current Alcohol intake frequency: 0-2 drinks per day Patient Tobacco Use Status: Former Tobacco user Tobacco use type: Cigarette Years Smoked: quit 1999 14 years old start 2-3 pack aday marijuana e-Cigarette/Vaping Use: Never Used Second Hand Smoke Exposure: Yes Substance Use Type: Marijuana service: No Current occupational status: retired Current occupation: right hand dominant Cognitive needs: No Hearing needs: No Vision needs: No Questionnaire PHQ-9 Over the last 2 weeks, how often have you been bothered by any of the following problems? 1. Little interest or pleasure in doing things: not at all 2. Feeling down, depressed, or hopeless: not at all 3. Trouble falling or staying asleep, or sleeping too much: not at all 4. Feeling tired or having little energy: not at all 5. Poor appetite or overeating: not at all 6. Feeling bad about yourself - or that you are a failure or have let yourself or your family down: not at all 7. Trouble concentrating on things, such as reading the newspaper or watching television: not at all 8. Moving or speaking so slowly that other people could have noticed. Or the opposite - being so fidgety or restless that you have been moving around a lot more than usual: not at all 9. Thoughts that you would be better off or of hurting yourself in some way: not at all Total score: 0 Depression Screening Interpretation: Negative Depression Screening Done: Yes Source: Developed by Drs. Sukhdev Jama, Yolie Hopson, Rafy Dc and colleagues, with an educational mario from [employer]. Thrive Questionnaire Date Thrive assessed: 06/02/25 I am a: Patient What is your living situation today?: I have a steady place to live Within the past 12 months, did the food you bought not last and you didn't have the money to get more?: Never true Within the past 12 months, did you worry whether your food would run out before you got money to buy more?: Never true Do you have trouble paying for medicines?: No Do you have trouble getting transportation to medical appointments?: No Do you have trouble paying your heating and electricity bill?: No Do you have trouble taking care of your child, family member or friend?: No Do you have trouble with day-to-day activities such as bathing, preparing meals, shopping, managing finances, etc.?: No Are you currently unemployed and looking for a job?: No Are you interested in more education?: No Please select the resources that you would like help with: None Currently or been in a relationship where the following occur: No concerns reported THRIVE Score: 0 AUDIT C Alcohol Use Questionnaire (AUDIT-C) 1. How often do you have a drink containing alcohol?: 2-3 times a week 2. How many drinks containing alcohol do you have on a typical day when you are drinking?: 1 or 2 3. How often do you have six or more drinks on one occasion?: Never Total Score: 3 SRIRAM-7 AMB Questionnaire SRIRAM-7 Date SRIRAM - 7 assessed: 07/14/24 Feeling nervous, anxious, or on edge: 0 = Not at all Not being able to stop or control worryin = Not at all Worrying too much about different things: 0 = Not at all Trouble relaxin = Not at all Being so restless that it is hard to sit still: 0 = Not at all Becoming easily annoyed or irritable: 0 = Not at all Feeling afraid as if something awful might happen: 0 = Not at all Total SRIRAM-7 score (0-4 normal; 5-9 mild; 10-14 moderate; 15-21 severe): 0 Source: Developed by Drs. Sukhdev Jama, Yolie Hopson, Rafy Dc and colleagues, with an educational mario from [employer]. Review of Systems Const Denies body aches, Denies chills, Denies fever(s), Denies headache(s) and Denies poor appetite Eyes Reports no additional complaints ENT Denies dysphagia, Denies dizziness, Denies headache(s) and Denies odynophagia Card Denies chest pain, Denies syncope, Denies edema, Denies irregular heart rhythm, Denies lightheadedness and Denies dyspnea Resp Denies cough and Denies dyspnea GI Denies abdominal pain, Denies constipation, Denies dysphagia, Denies diarrhea, Denies nausea, Denies odynophagia and Denies vomiting Reports no additional complaints Musc Reports no additional complaints and Denies abnormal gait Skin/Breast Reports system reviewed and no additional complaints, except as documented Neuro Denies abnormal gait, Denies dizziness, Denies syncope and Denies headache(s) Psych Reports no additional complaints Physical exam (Primary Care) Vital Signs: Last Vital Signs Pulse 49 L 07/14/24 11:03 BP 134/70 07/14/24 11:03 Pulse Ox 96 07/14/24 11:03 Oxygen Delivery Method Room Air 07/14/24 11:03 BMI result Body Mass Index 26.6 Tobacco/Smoking Status: Tobacco use Status Tobacco use date assessed 07/14/24 07/14/24 11:05 Patient Tobacco Use Status Former Tobacco user 07/14/24 11:05 Tobacco use type Cigarette 07/14/24 11:05 e-Cigarette/Vaping Use Never Used 07/14/24 11:05 PHQ-9: PHQ-9 Score PHQ-9: Total score 0 07/14/24 11:16 Depression Screening Interpretation: Negative Thrive Assessment: Date of Thrive Assessment Date Thrive assessed 07/14/24 07/14/24 11:05 Currently or been in a relationship where the following occur: No concerns reported Const General: cooperative, healthy appearing, comfortable and no acute distress Orientation/consciousness: patient oriented x3 [facility] Head: Yes normocephalic Ears: hearing grossly normal bilaterally General nose exam: Normal external nose present Eyes General: appearance normal, both eyes and all related structures Conjunctivae: conjunctivae normal Neck Neck: Yes full ROM and Yes no lymphadenopathy Resp Effort & Inspection: normal respiratory effort Auscultation: clear to auscultation bilaterally, no crackles, no rales, no rhonchi and no wheezes Cardio Rate: regular rate Rhythm: regular rhythm Skin General skin exam: no rashes or lesions noted Neuro General: patient oriented x3 Gait exam (Neuro): Normal gait present Extrem General: Yes normal to inspection, Yes full ROM and No edema Psych Affect: normal affect Attitude: cooperative Insight: Good insight present (Psych) Judgement: Good judgement present (Psych) Coding Level of Care Code Est Pt Level 3 (72644) Diagnoses Pre-op exam Z01.818 Assessment & Plan Assessment & Plan (1) Pre-op exam: Code(s): Z01.818 - Encounter for other preprocedural examination Category: Medical Plan: Regarding preop clearance, the patient is at moderate risk for proposed surgery due to age and Afib. Reviewed with the patient that no surgery is completely free of risk and that this examination is to assist the surgeon in reviewing informed consent. CHADs-VASC score of 1 and no prior history of ME or CVA. Discussed with Dr. Polo call to hold Eliquis two days prior to surgery and resume after surgery has been completed. All other medications may be taken as prescribed up until the day of the procedure and advised to avoid use of NSAIDs 1 week prior to surgery. EKG from 06/11/2024 and blood work evaluated. No further workup needed at this time and may proceed with the contemplated procedure. Thank you very much for letting me participate in the care of this patient. Plan This note was constructed using voice recognition software. While every effort has been made to ensure accuracy and ice cream scooper, still areas may have been included sometimes these areas may affect the content or meeting of the given symptoms. Total time spent caring for the patient today was 30 minutes. This includes time spent before the visit reviewing the chart, time spent during the visit, and time spent after the visit and documentation. Orders: Orders Hemoglobin A1c Today Z01.818 - Encounter for other preprocedural examination Comprehensive Met. Panel Today E78.00 - Pure hypercholesterolemia, unspecified Complete Blood Count Auto Diff Today I48.0 - Paroxysmal atrial fibrillation
--- OUTSIDE RECORDS SUMMARY | 2024-07-14 12:04 | XMS_ITS | Patient Health Record ---
Author Organization [facility] [address] [place] Address [address] [place] [address] Care Team Providers Care Live Source Operator Name Role Phone Sukhdev Eisenberg MD Primary Care Provider Unavail able Maximo Romario Unavailable [phone] Reason For Referral No Information Medications Medication SIG (Take, Route, Frequency, Duration) Notes Start Date End Date Status Xarelto 20 MG 1 tablet with food Orally Once a day Active Metoprolol Succinate ER 25 MG 1 tablet Orally Once a day Active Custom Orthotics as directed 09/24/2017 Active Night Splint AFO - L1930 as directed 09/24/2017 Active Atorvastatin Calcium 10 MG 1 tablet Orally Once a day for 30 Active Vitamin D 1000 UNIT 1 capsule Orally Onc e a day Active Finasteride 5 MG 1 tablet Orally Once a day Active Azithromycin 250 MG 2 tablets on the day, then 1 tablet daily for 4 days Orally Once a day for 5 day(s) 08/13/2017 Not-Taki ng Nabumetone 750 MG as directed Orally i po qd pc for 30 days 09/24/2017 Not-Taking Social History Tobacco Use: Social History Observation Description Date Details (start date - stop date) Former Smoker NA - NA Tobacco Use/Smoking Question Answer Notes Are you a: former smoker Additional Findings: Tobacco Non-User Current no n-smoker Alcohol Screen Question Answer Notes Did you [...] drinks (0 point) Points 4 Interpretation Positive Tobacco use other than smoking: Question Answer Notes Are you an other tobacco user? No Plan Of Treatment Pending Test Test Name Order Date X ray : Foot, left 3V 09/24/2017 Insurance Providers Payer Name Payer Address Payer Phone Subscriber Number Group Number Insured Name Patient Relationship to Insured Coverage Start Date Coverage End Date [facility] [address] [place] [address] [id number] Kristopher Machado Self - patient is the insured Medical (General) History Medical History History ICD Code Hypercholesterolemia vitamin D deficiency asbestos exposure hemorrhoids compression fracture, T12 degenerative disc disease atypical chest pain with a negative ETT gastroesophageal reflux disease (GERD) renal lithiasis, left seasonal allergies SOB (shortness of breath) on exertion benign prostatic hyperplasia (BPH) Liver disease Surgical History Surgery Date(Month/Year) tonsillectomy wisdom teeth extraction hemorrhoidal banding hemorrhoidectomy 02/2013 herniorraphy, inguinal, right and left vasectomy Cardioversion 09/12/2017 Hospitalization History Reason Date(Month/Year) A-fib 08/13/2017
== END 2024-07-14 11:54 | disposition home or self-care (01) ==
LOC: HO.HMCH 10:53
PROVIDERS: PCP Internal Medicine
DX: Z01.818 Encounter for other preprocedural examination (principal)

== ENCOUNTER 2024-07-14 10:49 | Outpatient (REF) | payer MEDICARE, OTHER, SELFPAY ==
[2024-07-14 12:19] LABS: MANUAL DIFF FLAG NO
[2024-07-14 13:23] LABS: Basophils Absolute Auto 0.1 X10*3/uL (0.0-0.2); Basophils Percent Auto 0.6 % (0-2); Eosinophils Absolute Auto 0.1 X10*3/uL (0.0-0.4); Hematocrit 43.2 % (42.0-52.0); Hemoglobin 15.4 g/dl (14.0-18.0); Imm Gran Abs Auto 0.04 X10*3/uL (0.00-0.03); Imm Gran Pct Auto 0.5 % (0.0-0.4); Lymphocytes Absolute Auto 1.3 X10*3/uL (1.2-4.9); Lymphocytes Percent Auto 15.6 % (20-40); Mean Corpuscular HGB Conc 35.6 g/dl (31.0-36.0); Mean Corpuscular Hemoglobin 33.1 pg (27.0-33.0); Mean Corpuscular Volume 92.9 fL (80.0-98.0); Mean Platelet Volume 9.7 fL (9.4-12.4); Monocytes Absolute Auto 0.7 X10*3/uL (0.1-1.2); Monocytes Percent Auto 8.1 % (2-11); Neutrophils Percent Auto 74.2 % (45-73); Platelet Count 182 X10*3/uL (160-400); Red Blood Count 4.65 X10*6/uL (4.60-5.80); Red Cell Distribution Width 12.6 % (11.0-16.0); White Blood Count 8.1 X10*3/uL (4.8-10.8)
[2024-07-14 13:31] LABS: Estimated Average Glucose 97 mg/dL; Hemoglobin A1C 126.5709 umol/L; Total Hemoglobin (HGBA1C) 4022.9777 umol/L
[2024-07-14 14:02] LABS: Alanine Aminotransferase 31 U/L (0-40); Albumin Level 4.5 g/dL (3.5-5.0); Alkaline Phosphatase 81 U/L (39-117); Anion Gap 12 (12-20); Aspartate Amino Transferase 33 U/L (5-37); Bilirubin Total 0.7 mg/dL (0.0-1.0); Blood Urea Nitrogen 13 mg/dL (9-16); Calcium 9.6 mg/dL (8.4-10.2); Carbon Dioxide 25 mmol/L (22-29); Chloride 107 mmol/L (96-108); Estimated Glomerular Filt Rate > 60; Glucose Random 91 mg/dL (60-115); Magnesium 1.8 mg/dL (1.6-2.6); Potassium 4.4 mmol/L (3.3-5.1); Sodium 140 mmol/L (135-145); Total Protein 7.2 g/dL (6.5-8.0)
[2024-07-14 14:03] LABS: Free T4 (Free Thyroxine) 0.92 ng/dL (0.71-1.85); Thyroid Stimulating Hormone 1.83 uIU/mL (0.32-4.0)
[2024-07-14 14:14] LABS: Folate 8.7 ng/mL (> or = 4.0); Vitamin B12 401 pg/mL (200-900)
== END 2024-07-14 10:50 | disposition home or self-care (01) ==
LOC: HO.LAB 10:49
PROVIDERS: PCP Internal Medicine
DX: Z01.818 Encounter for other preprocedural examination (principal); I48.0 Paroxysmal atrial fibrillation; E78.00 Pure hypercholesterolemia, unspecified; Z13.30 Encounter for screening examination for mental health and behavioral disorders, unspecified
CPT/HCPCS: 36415; 80053; 82607; 82746; 83036; 83735; 84439; 84443; 85025; 99212

== ENCOUNTER 2024-07-15 08:19 | Outpatient (AMB) | payer MEDICARE, OTHER, SELFPAY ==
[2024-07-15 08:27] VITALS: BP 132/72; PULSE 46; TEMP 36.1; O2SAT 97; BMI 26.6
--- NOTE | 2024-07-15 08:27 | A.OFFVIS_ITS ---
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 He was mild sleep apnea. Patient had HST 04/29( AHI- 6.7, Supine AHI-17, RANJIT- 83%, Snoring 40%). Allergies No Known Allergies [No Known Allergies*] Allergy (Verified 07/15/24 08:29) HPI Comments Details: 68 year old patient presents for evaluation of NICHOLAS per pcp. 04/29/2024 AHI 6.7 and supine 17 oxygen ranjit to 83% with snoring 40% of study. He goes to bed at 9pm and wakes up at 6am, 1-2 bathroom break, and generally gets 8 hours of sleep. Pulse is low today at 46 and he has Afib well managed with meds. Had a Turp procedure for BPH. He is planned to have r. rotator cuff surgery with [facility], on 23 July. He denies parasomnias. He denies migraines. He denies RLS. Mood and memory are stable. Labs reviewed with patient. He is a former smoker, currently uses MJ daily. [facility] Medical History Bilateral hand numbness Vision changes Bilateral hand pain Dysphagia IBS (irritable bowel syndrome) Hyperlipidemia BPH (benign prostatic hyperplasia) Paroxysmal atrial fibrillation Surgical History Hx of transurethral resection of prostate H/O neck surgery Hx of vasectomy Hx of hernia repair History of radiofrequency ablation (RFA) procedure for cardiac arrhythmia Hx of hemorrhoidectomy History of tonsillectomy and adenoidectomy Family History Father Cancer Lung cancer Mother Cancer Lung cancer Paternal Uncle Lung cancer Paternal Aunt Lung cancer Maternal Grandfather Rectal cancer Social History Household Members: Spouse Housing: Other Are you a primary healthcare facility administrator to a significant other at home: No Do you presently have visiting nurse or other home services: No Alcohol intake: current Alcohol intake frequency: 0-2 drinks per day Patient Tobacco Use Status: Former Tobacco user Tobacco use type: Cigarette Years Smoked: quit 1999 14 years old start 2-3 pack aday marijuana e-Cigarette/Vaping Use: Never Used Second Hand Smoke Exposure: Yes Substance Use Type: Marijuana service: No Current occupational status: retired Current occupation: right hand dominant Cognitive needs: No Hearing needs: No Vision needs: No Physical Exam Vital Signs: Last Vital Signs Temp 97 F 07/15/24 08:27 Pulse 46 L 07/15/24 08:27 BP 132/72 07/15/24 08:27 Pulse Ox 97 07/15/24 08:27 Oxygen Delivery Method Room Air 07/15/24 08:27 BMI result Body Mass Index 26.6 Const General: cooperative, comfortable and no acute distress Orientation/consciousness: patient oriented x3 HEENT Face and sinus: Yes face symmetric Teeth and gingiva: other (mallampti score 4) Eyes Pupils: Equal, round and reactive pupils present Neck Other: Limited ROM on lateral rotation due to c/4/5 procedure. Resp Effort & Inspection: normal respiratory effort and able to speak in complete sentences Neuro General: patient oriented x3 and moves all extremities Cranial nerves: Yes Facial sensation intact/muscles of mastication intact, Yes Equal, round and reactive pupils present, Yes Normal accommodation reflex present, Yes Bilaterally intact EOM present, Yes Nystagmus not present, Yes Normal facial strength present, Yes Midline tongue present, Yes Ability to bilaterally rotate head present (with limited rom) and Yes Ability to bilaterally elevate shoulders present Cognition (Neuro): normal cognition Gait exam (Neuro): Normal gait present Motor exam (neuro): Abnormal motor strength present (4/5) Deep tendon reflexes (DTR's): Right triceps reflex intensity grade: 2+, Left triceps reflex intensity grade: 2+, Rt Biceps (C5, C6): 2+, Left biceps reflex intensity grade: 2+, Right brachioradialis reflex intensity grade: 2+, Left brachioradialis reflex intensity grade: 2+, Right patellar reflex intensity grade: 2+, Left patellar reflex intensity grade: 2+, Right ankle reflex i ntensity grade: 2+ and Left ankle reflex intensity grade: 2+ Coordination: [id number] test normal Psych Appearance: grossly normal Affect: normal affect Thought process: Normal thought process present Thought content: Normal thought content present Results Reviewed Results Reviewed: HST c/w AHI 6.4 and oxygen ranjit to 84%, with snoring 40% of sleep, weight reduction and positional therapy is recommended. May be followed by sleep dentistry for oral appliance. Assessment & Plan Assessment & Plan (1) NICHOLAS (obstructive sleep apnea): Comment: mild AHI is 6.7 o2 nadirs to Code(s): G47.33 - Obstructive sleep apnea (adult) (pediatric) Category: Medical (2) Fatigue: Code(s): R53.83 - Other fatigue Category: Medical Qualifiers: Fatigue type: chronic, unspecified Qualified Code(s): R53.82 - Chronic fatigue, unspecified Plan HST c/w AHI 6.4 and oxygen ranjit to 84%, with snoring 40% of sleep, weight reduction and positional therapy is recommended. May be followed by sleep dentistry for oral appliance. Optimize sleep hygiene. Patient Instructions: Sleep Hygiene provided: set a scheduled bedtime and wake time to help regulate the circadian rhythm and balance the release of pituitary hormones. Sleep in a dark room, temperatures below 68 degrees, and no devices n bed. Limit caffeinated products 6 hours prior to bed, and limit fluids 2-4 hours prior to bed. Gentle night yoga, diffusing essential oils, and playing soft music can be relaxing. Coding Level of Care Code New Pt Level 4 (32052) Diagnoses NICHOLAS (obstructive sleep apnea) G47.33 Chronic fatigue R53.82 Fatigue type: chronic, unspecified Time Spent (min) 20 Comment evaluation Sleep Questionnaire Difficulty falling asleep: No Difficulty staying asleep?: No Number of arousals: 1-2 Snoring: No Witnessed apneas: No Gasping arousals: No Nocturia: No GERD: Yes (on omeprazole 40mg) Vivid dreams: No Acting out dreams: No Abnormal behavior in sleep: No Abnormal movements in sleep: No Morning headaches: No Excessive daytime sleepiness: No Daytime naps: No Restless legs: No Hallucinations: No Sleep paralysis: No Sleep Study: Yes CPAP: No
--- OUTSIDE RECORDS SUMMARY | 2024-07-15 08:31 | XMS_ITS | Patient Health Record ---
Author Organization [facility] [address] [place] Address [address] [place] [address] Care Team Providers Care Contracting Specialist Name Role Phone Sukhdev Eisenberg MD Primary Care Provider Unavail able Maximo Romario Unavailable [phone] Reason For Referral No Information Medications Medication [...] Insured Coverage Start Date Coverage End Date [facility] [address] [place] [address] [id number] Kristopher Machado Self - patient is [...]
== END 2024-07-15 09:34 | disposition home or self-care (01) ==
LOC: HO.HSMS 08:20
PROVIDERS: PCP Internal Medicine; Visit Provider Physician Assistant Medical
DX: G47.33 Obstructive sleep apnea (adult) (pediatric) (principal); R53.82 Chronic fatigue, unspecified
CPT/HCPCS: 99204

== ENCOUNTER → 2024-07-15 08:19 | Outpatient (BNVA) | payer MEDICARE, OTHER, SELFPAY | PROVIDERS: PCP Internal Medicine; Visit Provider Physician Assistant Medical | DX: G47.33 Obstructive sleep apnea (adult) (pediatric) (principal); R53.82 Chronic fatigue, unspecified | CPT/HCPCS: 99202 ==

== ENCOUNTER 2024-08-01 14:52 | Outpatient (AMB) | payer MEDICARE, OTHER, SELFPAY ==
--- NOTE | 2024-08-01 14:55 | A.OFFPC_ITS ---
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 He has tried OTC and prescription creams with no relief. Pt asking for referral to Podiatry. PENDING SALE TO [facility] Medical History (Updated 08/01/24 @ 15:06 by Veronique Henry NP) Onychomycosis Bilateral hand numbness Vision changes Bilateral hand pain Dysphagia IBS (irritable bowel syndrome) Hyperlipidemia BPH (benign prostatic hyperplasia) Paroxysmal atrial fibrillation Surgical History Hx of transurethral resection of prostate H/O neck surgery Hx of vasectomy Hx of hernia repair History of radiofrequency ablation (RFA) procedure for cardiac arrhythmia Hx of hemorrhoidectomy History of tonsillectomy and adenoidectomy Family History Father Cancer Lung cancer Mother Cancer Lung cancer Paternal Uncle Lung cancer Paternal Aunt Lung cancer Maternal Grandfather Rectal cancer Social History Household Members: Spouse Housing: Other Are you a primary inspector health care facilities to a significant other at home: No Do you presently have visiting nurse or other home services: No Alcohol intake: current Alcohol intake frequency: 0-2 drinks per day Patient Tobacco Use Status: Former Tobacco user Tobacco use type: Cigarette Years Smoked: quit 1999 14 years old start 2-3 pack aday marijuana e-Cigarette/Vaping Use: Never Used Second Hand Smoke Exposure: Yes Substance Use Type: Marijuana service: No Current occupational status: retired Current occupation: right hand dominant Cognitive needs: No Hearing needs: No Vision needs: No Questionnaire PHQ-9 Over the last 2 weeks, how often have you been bothered by any of the following problems? 1. Little interest or pleasure in doing things: nearly every day 2. Feeling down, depressed, or hopeless: not at all 3. Trouble falling or staying asleep, or sleeping too much: not at all 4. Feeling tired or having little energy: not at all 5. Poor appetite or overeating: not at all 6. Feeling bad about yourself - or that you are a failure or have let yourself or your family down: not at all 7. Trouble concentrating on things, such as reading the newspaper or watching television: not at all 8. Moving or speaking so slowly that other people could have noticed. Or the opposite - being so fidgety or restless that you have been moving around a lot more than usual: not at all 9. Thoughts that you would be better off or of hurting yourself in some way: not at all Total score: 3 91856 - PHQ-9 Billing: Yes Source: Developed by Drs. Sukhdev Jama, Yolie Hopson, Rafy Dc and colleagues, with an educational mario from [employer]. Thrive Questionnaire Date Thrive assessed: 08/01/24 I am a: Patient What is your living situation today?: I have a steady place to live Within the past 12 months, did the food you bought not last and you didn't have the money to get more?: Never true Within the past 12 months, did you worry whether your food would run out before you got money to buy more?: Never true Do you have trouble paying for medicines?: No Do you have trouble getting transportation to medical appointments?: No Do you have trouble paying your heating and electricity bill?: No Do you have trouble taking care of your child, family member or friend?: No Do you have trouble with day-to-day activities such as bathing, preparing meals, shopping, managing finances, etc.?: No Are you currently unemployed and looking for a job?: No Are you interested in more education?: No Please select the resources that you would like help with: None Currently or been in a relationship where the following occur: No concerns reported THRIVE Score: 0 AUDIT C Alcohol Use Questionnaire (AUDIT-C) 1. How often do you have a drink containing alcohol?: 2-4 times a month 2. How many drinks containing alcohol do you have on a typical day when you are drinking?: 3 or 4 3. How often do you have six or more drinks on one occasion?: Weekly Total Score: 6 SRIRAM-7 AMB Questionnaire SRIRAM-7 Date SRIRAM - 7 assessed: 08/01/24 Feeling nervous, anxious, or on edge: 3 = Nearly every day Not being able to stop or control worryin = Not at all Worrying too much about different things: 0 = Not at all Trouble relaxin = Not at all Being so restless that it is hard to sit still: 0 = Not at all Becoming easily annoyed or irritable: 0 = Not at all Feeling afraid as if something awful might happen: 0 = Not at all Total SRIRAM-7 score (0-4 normal; 5-9 mild; 10-14 moderate; 15-21 severe): 3 Source: Developed by Drs. Sukhdev Jama, Yolie Hopson, Rafy Dc and colleagues, with an educational mario from [employer]. SRIRAM-7 Assessment Billing SRIRAM-7 Assessment Tool: SRIRAM-7 Assessment 16565 Review of Systems Const All systems reviewed & are unremarkable except as noted in HPI and below Physical exam (Primary Care) Vital Signs: Last Vital Signs Temp 97.1 F 08/01/24 15:03 Pulse 60 08/01/24 15:03 BP 126/70 08/01/24 15:03 Pulse Ox 96 08/01/24 15:03 Oxygen Delivery Method Room Air 08/01/24 15:03 BMI result Body Mass Index 25.7 Tobacco/Smoking Status: Tobacco use Status Tobacco use date assessed 07/14/24 08/01/24 14:55 Patient Tobacco Use Status Former Tobacco user 08/01/24 14:55 Tobacco use type Cigarette 08/01/24 14:55 e-Cigarette/Vaping Use Never Used 08/01/24 14:55 PHQ-9: PHQ-9 Score PHQ-9: Total score 3 08/01/24 16:02 Thrive Assessment: Date of Thrive Assessment Date Thrive assessed 08/01/24 08/01/24 14:55 Currently or been in a relationship where the following occur: No concerns reported Const General: comfortable and no acute distress Orientation/consciousness: patient oriented x3 Skin Nails: discolored and yellow and thickened (Toes on B/L Feet) Neuro General: patient oriented x3, gait normal and moves all extremities Extrem Ankle/foot/toe images: 2 1. Thick, brittle and discolored Nails - skin discolored brownish spots. Psych Speech and movement: Normal speech and movement present Coding Level of Care Code Est Pt Level 4 (56170) Diagnoses Onychomycosis B35.1 Additional Codes SRIRAM-7 Assessment Billing - SRIRAM-7 Assessment Tool: SRIRAM-7 Assessment 43523 ([id number]) PHQ-9 - 50381 - PHQ-9 Billing: Yes ([id number]) Time Spent (min) 20 Assessment & Plan Assessment & Plan (1) Onychomycosis: Code(s): B35.1 - Tinea unguium Category: Medical Plan: Referral placed to Podiatry. Orders: Referrals 2 Podiatry Referral B35.1 - Tinea unguium
--- OUTSIDE RECORDS SUMMARY | 2024-08-01 14:56 | XMS_ITS | Patient Health Record ---
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
[2024-08-01 15:03] VITALS: BP 126/70; PULSE 60; TEMP 36.2; O2SAT 96; BMI 25.7
== END 2024-08-01 15:21 | disposition home or self-care (01) ==
LOC: HO.HMCH 14:53
PROVIDERS: PCP Internal Medicine; Visit Provider Nurse Practitioner Family
DX: B35.1 Tinea unguium (principal)

== ENCOUNTER → 2024-08-01 14:52 | Outpatient (BNVA) | payer MEDICARE, OTHER, SELFPAY | PROVIDERS: PCP Internal Medicine; Visit Provider Nurse Practitioner Family | DX: B35.1 Tinea unguium (principal) | CPT/HCPCS: 96127; 99212 ==

== ENCOUNTER 2024-08-13 09:53 | Day surgery (SDC) | payer MEDICARE, OTHER, SELFPAY ==
--- OUTSIDE RECORDS SUMMARY | 2024-08-07 09:47 | XMS_ITS | Patient Health Record ---
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 Role Phone Sukhdev Eisenberg MD Primary Care Provider Unavail able Maximo Romario Unavailable [phone] Reason For Referral No Information Medications Medication [...] 10 MG 1 tablet Orally Once a day; Duration: 30 Active Vitamin D 1000 UNIT 1 capsule Orally Onc e a day Active Finasteride 5 MG 1 tablet Orally Once a day Active Azithromycin 250 MG 2 tablets on the day, then 1 tablet daily for 4 days Orally Once a day; Duration: 5 day(s) 08/13/2017 Not-Taking Nabumetone 750 MG as directed Orally i po qd pc; Duration: 30 days 09/24/2017 Not-Taking Social History Tobacco [...] Insured Coverage Start Date Coverage End Date [facility] [address] [place] [address] [id number] Kristopher Machado Self - patient is [...]
--- NOTE | 2024-08-11 14:25 | HO.ANESPROP2 ---
Documented by User: Mary Ann Moore NP 08/11/24 14:30 HPI - Anesthesia Eval Consult details Narrative: 68yo M for Transesophageal Echocardiogram with bubble study Eliquis for afib PMFSH Active Problems Active Problems: All Active Problems S/P arthroscopy of right shoulder (Acute) Onychomycosis (Acute) Fatigue (Acute) NICHOLAS (obstructive sleep apnea) (Acute) Pre-op exam (Acute) Enlarged RV (right ventricle) (Acute) Sick sinus syndrome (Acute) Erosive gastritis (Acute) Flexor tenosynovitis of finger (Acute) Cubital tunnel syndrome, bilateral (Acute) Carpal tunnel syndrome, bilateral upper limbs (Acute) Ulnar neuropathy at elbow of right upper extremity (Acute) Carpal tunnel syndrome of right wrist (Acute) Annual physical exam (Acute) Throat irritation (Acute) Family history of lung cancer (Acute) Hypercholesterolemia (Acute) BPH w urinary obs/LUTS (Acute) Paroxysmal atrial fibrillation (Acute) Past Medical History Medical History (Updated 08/01/24 @ 15:06 by Veronique Henry NP) Onychomycosis Bilateral hand numbness Vision changes Bilateral hand pain Dysphagia IBS (irritable bowel syndrome) Hyperlipidemia BPH (benign prostatic hyperplasia) Paroxysmal atrial fibrillation Family History Family History Father Cancer Lung cancer Mother Cancer Lung cancer Paternal Uncle Lung cancer Paternal Aunt Lung cancer Maternal Grandfather Rectal cancer Family history of problems with anesthesia: No Surgical History Surgical History (Updated 08/08/24 @ 10:07 by Tal Cuellar MD) Hx of transurethral resection of prostate H/O neck surgery Hx of vasectomy Hx of hernia repair History of radiofrequency ablation (RFA) procedure for cardiac arrhythmia Hx of hemorrhoidectomy History of tonsillectomy and adenoidectomy History of Problems with Anesthesia: No Social History Social History Household Members: Spouse Housing: Other Are you a primary caregivers homecare to a significant other at home: No Do you presently have visiting nurse or other home services: No Alcohol intake: current Alcohol intake frequency: 0-2 drinks per day Patient Tobacco Use Status: Former Tobacco user Tobacco use type: Cigarette Years Smoked: quit 1999 14 years old start 2-3 pack aday marijuana e-Cigarette/Vaping Use: Never Used Second Hand Smoke Exposure: Yes Substance Use Type: Marijuana Advance Directives: No Advance Directives Information Provided: Yes service: No Current occupational status: retired Current occupation: right hand dominant Cognitive needs: No Hearing needs: No Vision needs: No Meds Allergies Allergy/AdvReac Type Severity Reaction Status Date / Time No Known Allergies (No Known Allergy Verified 08/01/24 15:04 Allergies*) Home Medications ?Medication ?Instructions ?Recorded ?Confirmed ?Last Taken ?Type cholecalciferol (vitamin D3) 25 25 mcg PO DAILY 01/30/20 07/14/24 Unknown History mcg (1,000 unit) capsule omeprazole 40 mg capsule,delayed 40 mg PO DAILY 12/26/23 07/14/24 Unknown History release dicyclomine 10 mg capsule 10 mg PO TID PRN 03/10/24 07/14/24 Unknown History Exam Pertinent Lab Results Pertinent Lab Results: Laboratory Tests 07/14/24 12:18 WBC 8.1 Hgb 15.4 Hct 43.2 Plt Count 182 Sodium 140 Potassium 4.4 Chloride 107 Carbon Dioxide 25 BUN 13 Creatinine 0.77 Narrative Narrative: EKG 05/2024 EKG Details: EKG shows sinus bradycardia at 49 beats per minute with first-degree AV block ECHO 2023 Conclusions: - Normal left ventricular size and systolic function. The visually estimated ejection fraction is between 65-70%. There is no evidence of regional wall motion abnormalities. Diastolic function is normal for age. - Severely increased right ventricular cavity size. There is normal right ventricular systolic function. - The left atrium is mildly dilated. The right atrium is severely dilated. - There is mild dilatation of the sinuses of Valsalva measuring 4.30 cm and mild dilatation of the ascending aorta. NM cardiolite stress test 03/2024 Impression: 1. Myocardial perfusion imaging study shows probably normal myocardial perfusion. 2. Gated LVEF is 41% during stress and 40% during rest. Visually normal. Correlate with echocardiogram. 3. Transient ischemic dilatation not present. Assessment and Plan Assessment Anesthesia Assessment: Chart Reviewed Final Anesthetic Review Family History of Problems with Anesthesia: No History of Problems with Anesthesia: No Documented by User: Monika Lemon MD 08/13/24 10:47 [facility] Past Medical History Medical History (Updated 08/01/24 @ 15:06 by Veronique Henry NP) Onychomycosis Bilateral hand numbness Vision changes Bilateral hand pain Dysphagia IBS (irritable bowel syndrome) Hyperlipidemia BPH (benign prostatic hyperplasia) Paroxysmal atrial fibrillation Family History Family History Father Cancer Lung cancer Mother Cancer Lung cancer Paternal Uncle Lung cancer Paternal Aunt Lung cancer Maternal Grandfather Rectal cancer Surgical History Surgical History (Updated 08/08/24 @ 10:07 by Tal Cuellar MD) Hx of transurethral resection of prostate H/O neck surgery Hx of vasectomy Hx of hernia repair History of radiofrequency ablation (RFA) procedure for cardiac arrhythmia Hx of hemorrhoidectomy History of tonsillectomy and adenoidectomy Social History Social History Household Members: Spouse Housing: Other Are you a primary caregivers homecare to a significant other at home: No Do you presently have visiting nurse or other home services: No Alcohol intake: current Alcohol intake frequency: 0-2 drinks per day Patient Tobacco Use Status: Former Tobacco user Tobacco use type: Cigarette Years Smoked: quit 1999 14 years old start 2-3 pack aday marijuana e-Cigarette/Vaping Use: Never Used Second Hand Smoke Exposure: Yes Substance Use Type: Marijuana Advance Directives: No Advance Directives Information Provided: Yes service: No Current occupational status: retired Current occupation: right hand dominant Cognitive needs: No Hearing needs: No Vision needs: No Meds Allergies Allergy/AdvReac Type Severity Reaction Status Date / Time No Known Allergies (No Known Allergy Verified 08/01/24 15:04 Allergies*) Home Medications ?Medication ?Instructions ?Recorded ?Confirmed ?Last Taken ?Type cholecalciferol (vitamin D3) 25 25 mcg PO DAILY 01/30/20 07/14/24 Unknown History mcg (1,000 unit) capsule omeprazole 40 mg capsule,delayed 40 mg PO DAILY 12/26/23 07/14/24 Unknown History release dicyclomine 10 mg capsule 10 mg PO TID PRN 03/10/24 07/14/24 Unknown History Exam Airway Mallampati Class: II TM Dist: >3cm Neck ROM: Full Heart: rrr Lungs: cta Assessment and Plan Assessment Anesthesia Assessment: Anesthesia Plan Discussed Final Anesthetic Review NPO: Yes ASA Class: III Final Preanesthetic Review: No Changes in Pt Med Stat, Meds/Allgs Chart Reviewed and Consent Obtained/Reviewed Patient Risk: Intermediate Procedure Risk: Intermediate Anesthetic Plan Anesthetic Plan: MAC: Disposition: Standard PACU
--- NOTE | 2024-08-13 10:36 | MHC.SHP ---
Pre-Procedural Eval Section A - 24 Hr Update-Section A only Date of Service: 08/13/24 The patient is an INPATIENT: No Changes since office visit: Yes Patient answered all questions; No Cold of Flu in the past 2 weeks, No New Medical Problems and No Changes in Medication The patient has been examined within 24 hours of the surgical procedure. The History & Physical has been completed within 30 days and I have reviewed it.: Yes Section B - Complete if H&P > 30 days Chief Complaint: Cardiomegaly Allergies: Allergies Allergy/AdvReac Type Severity Reaction Status Date / Time No Known Allergies (No Known Allergy Verified 08/01/24 15:04 Allergies*) Plan I have reviewed the history and physical and performed a pertinent physical examination on my patient. No changes have occurred unless specified. Time Spent With Patient Time: Total time managing care of this patient today ____ minutes.
[2024-08-13 10:44] VITALS: BP 127/80; PULSE 49; RESP 16; TEMP 36.7; O2SAT 97; BMI 25.8
[2024-08-13] MEDS: Lactated Ringers 1,000 ML 100 ML IVCONT (10:46)
[2024-08-13 12:19] VITALS: BP 102/63; PULSE 46; RESP 16; TEMP 36.2; O2SAT 95
[2024-08-13 12:34] VITALS: BP 123/74; PULSE 44; RESP 16; O2SAT 95
[2024-08-13 12:49] VITALS: BP 127/75; PULSE 49; RESP 16; TEMP 36.3; O2SAT 95
--- NOTE | 2024-08-13 13:30 | CA_ITS ---
Transesophageal Echocardiogram Patient (Last, First, Middle): Kristopher Basurto G Gender: Male Date of : 1955 Age: 68 Procedure Date: 08/13/2024 Procedure Type: Transesophageal Echocardiogram Location: OP Height: 175.26 cm Weight: 79.38 kg BSA: 1.95 m2 Heart Rate: bpm BP: 139 / 81 mmHg Instrument And Controls Technician: SANTOS Referring MD: Robson Boston MD Ethologist: Robson Boston MD Symptoms: Enlarged right ventricle Conclusion: ??? 1. Dilated right-sided chambers with preserved RV systolic function 2. No clear evidence of intracardiac shunting 3. Cardiac valvular Dopplers within normal limits 4. No intracardiac thrombi, masses or vegetations 5. [id number] atherosclerotic changes noted in descending thoracic and arch of the aorta 6. No gross pericardial effusion Findings Procedure Information Consent was obtained prior to the procedure. Pre SUSHILA oral cavity was checked and revealed mild overcrowding. The adult 3D probe was passed with no difficulty. This was a technically good study. Left Ventricle Normal left ventricular size, thickness, and systolic function. The visually estimated ejection fraction is between 60-65%. Right Ventricle Moderately increased right ventricular cavity size. There is normal right ventricular systolic function. Atria The left atrium is moderately dilated. There is no evidence of interatrial shunt by color Doppler and contrast. There is no evidence of an atrial septal defect. There is no evidence of thrombus or mass in the left atrium. There is smoke formation seen in the left atrium. The left atrial appendage was also identified in multiple views without any significant clots. Left atrial appendage ejection velocity was about 14 cm/sec. The left upper, right upper right lower pulmonary vein draining normally into the left atrium. The right atrium is severely dilated. There is no evidence of thrombus or mass in the right atrium. The IVC and SVC drain normally into the right atrium. This smoke formation seen with the right atrial cavity. Aortic Valve Normal aortic valve structure and function. There is no aortic valve stenosis. There is no evidence of a mass on the aortic valve. There is no aortic valve regurgitation. Mitral Valve Normal mitral valve structure and function. There is mild mitral valve regurgitation. There is no mitral valve stenosis. There is no mass noted on the mitral valve. Pulmonic Valve The pulmonic valve is likely normal. There is trace pulmonic valve regurgitation. Tricuspid Valve Normal tricuspid valve structure. There is trace tricuspid valve regurgitation. There is no evidence of a mass on the tricuspid valve. Great Vessels All visible segments of the aorta are normal in size. Moderate plaque is seen in the arch and descending thoracic aorta. The visualized portions of the pulmonary artery and branches are normal. Venous The inferior vena cava is normal in size and collapses greater than 50% with inspiration. Pericardium/Pleural There is no evidence of pericardial effusion. Measurements Tricuspid Valve TR Pk Hossein: 1.41 TR Pk Grad: 8.00 Updated by Robson Boston on 10:48 AM with Status of Final Robson Boston MD electronically signed on 08/14/2024 10:48:37 AM with status of Final
== END 2024-08-13 13:16 | disposition home or self-care (01) ==
PROVIDERS: PCP Internal Medicine; Visit Provider Internal Medicine Cardiovascular Disease
PROC: (CPT 93312; principal; 2024-08-13 11:30)
DX: I51.7 Cardiomegaly (principal); R00.1 Bradycardia, unspecified; I48.0 Paroxysmal atrial fibrillation; E78.5 Hyperlipidemia, unspecified; Z79.01 Long term (current) use of anticoagulants; Z79.899 Other long term (current) drug therapy; Z98.890 Other specified postprocedural states
CPT/HCPCS: 93312; J2003; J2704; Q9957

== ENCOUNTER → 2024-08-13 13:30 | Outpatient (BNV) | payer MEDICARE, OTHER, SELFPAY | PROVIDERS: PCP Internal Medicine; Visit Provider Internal Medicine Cardiovascular Disease | DX: I34.0 Nonrheumatic mitral (valve) insufficiency (principal); I51.7 Cardiomegaly; I70.0 Atherosclerosis of aorta; R93.1 Abnormal findings on diagnostic imaging of heart and coronary circulation | CPT/HCPCS: 76376; 93312; 93320; 93325 ==

== ENCOUNTER 2024-08-25 10:30 | Outpatient (AMB) | payer MEDICARE, OTHER, SELFPAY ==
--- NOTE | 2024-08-25 10:34 | MHC.OFFVIS ---
Vital Signs 08/25/24 10:35 Height 5 ft 9 in Weight 180 lb 12.465 oz BMI 26.7 BP 124/76 Blood Pressure Location Lt brachial Position Sitting Pulse 68 Intake Visit Reasons: Follow up appt. after Cardiomegaly Intake Note: Follow-up [facility] [employer] Required: No Allergies No Known Allergies (No Known Allergies*) Allergy (Verified 08/01/24 15:04) Medication List - Last Reconciled 08/25/24 by Robson Boston MD apixaban (Eliquis) 5 mg PO BID atorvastatin 10 mg PO DAILY cholecalciferol (vitamin D3) 25 mcg PO DAILY dicyclomine 10 mg PO TID PRN metoprolol tartrate 12.5 mg (1/2 x 25 mg) PO DAILY omeprazole 40 mg PO DAILY HPI Comments Details: Kristopher comes for follow-up. Underwent a SUSHILA recently and found no evidence of any intracardiac shunting. Overall SUSHILA was benign. He is taking all his medications. No cardiac symptoms at current point time with no episodes of atrial fibrillation. No heart failure symptoms. [facility] Medical History Onychomycosis Bilateral hand numbness Vision changes Bilateral hand pain Dysphagia IBS (irritable bowel syndrome) Hyperlipidemia BPH (benign prostatic hyperplasia) Paroxysmal atrial fibrillation Surgical History Hx of transurethral resection of prostate H/O neck surgery Hx of vasectomy Hx of hernia repair History of radiofrequency ablation (RFA) procedure for cardiac arrhythmia Hx of hemorrhoidectomy History of tonsillectomy and adenoidectomy Family History Father Cancer Lung cancer Mother Cancer Lung cancer Paternal Uncle Lung cancer Paternal Aunt Lung cancer Maternal Grandfather Rectal cancer Social History Household Members: Spouse Housing: Other Are you a primary respiratory care program director to a significant other at home: No Do you presently have visiting nurse or other home services: No Alcohol intake: current Alcohol intake frequency: 0-2 drinks per day Patient Tobacco Use Status: Former Tobacco user Tobacco use type: Cigarette Years Smoked: quit 1999 14 years old start 2-3 pack aday marijuana e-Cigarette/Vaping Use: Never Used Second Hand Smoke Exposure: Yes Substance Use Type: Marijuana service: No Current occupational status: retired Current occupation: right hand dominant Cognitive needs: No Hearing needs: No Vision needs: No Review of Systems Const Denies chills, Denies fatigue, Denies fever(s), Denies frequent falls, Denies weakness, Denies weight gain and Denies weight loss ENT Denies dizziness Card Denies chest pain, Denies leg edema, Denies lightheadedness, Denies palpitations, Denies dyspnea, Denies dyspnea on exertion, Denies orthopnea and Denies other (loss of consciousness) Resp Denies cough, Denies dyspnea and Denies dyspnea on exertion GI Denies hematochezia and Denies change in stool character Musc Denies abnormal gait, Denies muscle weakness, Denies numbness, Denies radiating pain into limb and Denies tingling Neuro Denies abnormal gait, Denies dizziness, Denies frequent falls, Denies numbness, Denies tingling and Denies weakness Endo Denies fatigue and Denies palpitations Physical Exam Vital Signs: Last Vital Signs Pulse 68 08/25/24 10:35 BP 124/76 08/25/24 10:35 BMI result Body Mass Index 26.7 Const General: cooperative, comfortable, awake and Physically active Nutritional Appearance: thin Orientation/consciousness: patient oriented x3 Limitations: no limitations Neck Neck: Yes trachea midline, Yes supple and Yes no JVD Resp Effort & Inspection: normal respiratory effort Auscultation: clear to auscultation bilaterally Cardio Jugular venous distension: no JVD Palpation: normal PMI Rate: regular rate Rhythm: regular rhythm Heart sounds: S1 normal heart sound present and S2 normal heart sound present GI Auscultation: normal bowel sounds Skin General skin exam: no rashes or lesions noted Neuro General: patient oriented x3 and no focal motor deficits Extrem General: Yes no clubbing, cyanosis or edema Psych Appearance: grossly normal Assessment & Plan Assessment & Plan (1) Paroxysmal atrial fibrillation: Comment: Cardioversion Dr. Boston 1999 Code(s): I48.0 - Paroxysmal atrial fibrillation Category: Medical Plan: Paroxysmal atrial fibrillation status post ablation. Currently not having any symptoms. No indication for any additional therapy. On low-dose beta-jesús therapy avoidance of stimulants was discussed. Continue full oral anticoagulation, currently on Eliquis 5 mg b.i.d.. (2) Enlarged RV (right ventricle): Code(s): I51.7 - Cardiomegaly Category: Medical Plan: Enlarged right-sided chambers especially RV without any clear evidence of intracardiac shunting. No other possible etiology. No signs or symptoms of heart failure. Will follow up in the clinic in 1 year's time, sooner p.r.n.. Thank you for allowing me to partake in his care Coding Level of Care Code Est Pt Level 3 (42978) Complex EM visit Add On G2211 Diagnoses Paroxysmal atrial fibrillation I48.0 Enlarged RV (right ventricle) I51.7
[2024-08-25 10:35] VITALS: BP 124/76; PULSE 68; BMI 26.7
--- OUTSIDE RECORDS SUMMARY | 2024-08-25 11:21 | XMS_ITS | Patient Health Record ---
Author Organization [facility] Shukri stoney Jeremiah Address [address] [place] [address] Care Team Providers Care Chuck Splitter Name Role Phone Sukhdev Eisenberg MD Primary Care Provider Unavail able Maximo Romario Unavailable [phone] Reason For Referral No Information Medications Medication [...] Insured Coverage Start Date Coverage End Date [facility] [address] [place] [address] [id number] Kristopher Machado Self - patient is [...]
== END 2024-08-25 11:30 | disposition home or self-care (01) ==
LOC: HO.HCS 10:30
PROVIDERS: PCP Internal Medicine; Visit Provider Internal Medicine Cardiovascular Disease
DX: I48.0 Paroxysmal atrial fibrillation (principal); I51.7 Cardiomegaly
CPT/HCPCS: 99213; G2211

== ENCOUNTER → 2024-08-25 10:30 | Outpatient (BNVA) | payer MEDICARE, OTHER, SELFPAY | PROVIDERS: PCP Internal Medicine; Visit Provider Internal Medicine Cardiovascular Disease | DX: Z09 Encounter for follow-up examination after completed treatment for conditions other than malignant neoplasm (principal); I48.0 Paroxysmal atrial fibrillation; I51.7 Cardiomegaly; Z79.01 Long term (current) use of anticoagulants; Z79.899 Other long term (current) drug therapy | CPT/HCPCS: 99212 ==

== ENCOUNTER 2024-08-28 10:02 | Outpatient (AMB) | payer MEDICARE, OTHER, SELFPAY ==
[2024-08-28 10:06] VITALS: BP 118/74; PULSE 51; TEMP 36.2; O2SAT 97; BMI 26.7
--- NOTE | 2024-08-28 10:08 | A.OFFVIS_ITS ---
Intake Vital Signs 08/28/24 10:06 08/28/24 10:15 Height 5 ft 9 in Weight 181 lb BMI 26.7 26.7 BP 118/74 Blood Pressure Location Lt brachial Position Sitting Pulse 51 Pulse Source Pulse Oximeter Temp 97.1 F Temp Source Temporal Artery Scan Pulse Oximetry (%) 97 Oxygen Delivery Method Room Air Intake Visit Reasons: Annual exam Allergies No Known Allergies (No Known Allergies*) Allergy (Verified 08/28/24 10:09) Medication List - Last Reconciled 08/28/24 by Tal Cuellar MD apixaban (Eliquis) 5 mg PO BID atorvastatin 10 mg PO DAILY cholecalciferol (vitamin D3) 25 mcg PO DAILY dicyclomine 10 mg PO TID PRN metoprolol tartrate 12.5 mg (1/2 x 25 mg) PO DAILY omeprazole 40 mg PO DAILY HPI Annual exam HPI Details [place] of care cardiology Dr. [place] orthopedics [facility] orthopedic appliance Neu[place] [facility] [place]rano gastro[facility] seeing [facility] Medical History (Updated 08/28/24 @ 10:24 by Tal Cuellar MD) Onychomycosis Bilateral hand numbness Vision changes Bilateral hand pain Dysphagia IBS (irritable bowel syndrome) Hyperlipidemia BPH (benign prostatic hyperplasia) Paroxysmal atrial fibrillation Surgical History (Updated 08/28/24 @ 10:11 by Shena Huerta CMA) S/P right rotator cuff repair (~07/2024) Hx of transurethral resection of prostate H/O neck surgery Hx of vasectomy Hx of hernia repair History of radiofrequency ablation (RFA) procedure for cardiac arrhythmia Hx of hemorrhoidectomy History of tonsillectomy and adenoidectomy Family History Father Cancer Lung cancer Mother Cancer Lung cancer Paternal Uncle Lung cancer Paternal Aunt Lung cancer Maternal Grandfather Rectal cancer Social History (Updated 08/28/24 @ 10:31 by Tal Cuellar MD) Household Members: Spouse Housing: Other Are you a primary healthcare or medical to a significant other at home: No Do you presently have visiting nurse or other home services: No Alcohol intake: current Alcohol intake frequency: 0-2 drinks per day Comment: 2 beers a day Patient Tobacco Use Status: Former Tobacco user Tobacco use type: Cigarette Years Smoked: quit 1999 14 years old start 2-3 pack aday marijuana e-Cigarette/Vaping Use: Never Used Second Hand Smoke Exposure: Yes Substance Use Type: Marijuana service: No Current occupational status: retired Current occupation: right hand dominant Cognitive needs: No Hearing needs: No Vision needs: No Questionnaire Medicare Wellness Checkup [age] What gender do you identify with?: male During the past 4 weeks, how much have you been bothered by emotional problems such as feeling anxious, depressed, irritable, sad or downhearted, and blue?: not at all During the past 4 weeks, has your physical & emotional health limited your social activities with family, friends, neighbors, or groups?: not at all During the past 4 weeks, how much bodily pain have you generally had?: very mild pain During the past 4 weeks, was someone available to help you if you needed & wanted help?: yes, as much as I wanted During the past 4 weeks, what was the hardest physical activity you could do for at least 2 minutes?: light Can you get to places out of walking distance without help? (For eg., can you travel alone on buses, taxis or drive your car?): Yes Can you go shopping for groceries or clothes without someone's help?: Yes Can you prepare your own meals?: Yes Can you do your housework without help?: Yes Because of any health problems, do you need the help of another person with your personal care needs such as eating, bathing, dressing or getting around the house?: No Can you handle your own money without help?: Yes During the past 4 weeks, how would you rate your health in general?: very good During the past 4 weeks how have things been going for you?: pretty well Are you having difficulties driving your car?: no Do you always fasten your seat belt when you are in a car?: yes, usually During past 4 weeks, have you been bothered by the following: never: Falling or dizzy when standing up, Sexual problems?, Trouble eating well?, Teeth or denture problems?, Problems using the telephone? and Tiredness or fatigue? Have you fallen 2 or more times in the past year?: No Are you afraid of falling?: No Are you a smoker?: no During the past 4 weeks, how many drinks of wine, beer, or other alcoholic beverages did you have?: 2-5 drinks per week Do you exercise for about 20 minutes 3 or more times a week?: yes, most of the time Have you been given information to help with the following?: no: Hazards in your house that might hurt you? and no: Keeping track of your medications? How often do you have trouble taking medicines the way you have been told to take them?: I always take medicine as prescribed How confident are you that you can control & manage most of your health problems?: very confident What is your race?: White PHQ-9 Over the last 2 weeks, how often have you been bothered by any of the following problems? 1. Little interest or pleasure in doing things: not at all 2. Feeling down, depressed, or hopeless: not at all 3. Trouble falling or staying asleep, or sleeping too much: not at all 4. Feeling tired or having little energy: not at all 5. Poor appetite or overeating: not at all 6. Feeling bad about yourself - or that you are a failure or have let yourself or your family down: not at all 7. Trouble concentrating on things, such as reading the newspaper or watching television: not at all 8. Moving or speaking so slowly that other people could have noticed. Or the opposite - being so fidgety or restless that you have been moving around a lot more than usual: not at all 9. Thoughts that you would be better off or of hurting yourself in some way: not at all Total score: 0 Depression Screening Interpretation: Negative Depression Screening Done: Yes 49658 - PHQ-9 Billing: Yes Source: Developed by Drs. Sukhdev Jama, Yolie Hopson, Rafy Dc and colleagues, with an educational mario from [employer]. Review of Systems Const Denies poor appetite and Denies weakness Eyes Denies no additional complaints ENT Reports Normal hearing present, Denies dizziness, Denies nasal congestion, Denies tinnitus and Denies sore throat Card Denies chest pain, Denies syncope, Denies rapid heart rate and Denies dyspnea Resp Denies cough and Denies dyspnea GI Denies change in stool character, Reports constipation, Denies diarrhea, Denies nausea and Denies vomiting Denies dysuria and Denies urinary frequency Neuro Reports Normal hearing present, Denies confusion, Denies dizziness, Denies syncope and Denies weakness Psych Denies confusion Physical Exam Vital Signs: Last Vital Signs Temp 97.1 F 08/28/24 10:06 Pulse 51 08/28/24 10:06 BP 118/74 08/28/24 10:06 Pulse Ox 97 08/28/24 10:06 Oxygen Delivery Method Room Air 08/28/24 10:06 BMI result Body Mass Index 26.7 Const General: No confusion Orientation/consciousness: No confusion HEENT Head: Yes normocephalic Ears: external ears normal and TM's normal bilaterally Face and sinus: Yes normal facial exam Mouth: moist mucous membranes Throat: Yes tonsils normal Eyes Conjunctivae: conjunctivae normal Pupils: Equal, round and reactive pupils present and Pupil accommodation reflex normal Direct Ophthalmoscopy: normal light reflex Neck Neck: No lymphadenopathy Thyroid: Thyroid normal Chest Chest palpation & inspection: normal inspection of the chest Resp Effort & Inspection: normal respiratory effort and no audible wheezes Auscultation: clear to auscultation bilaterally, no crackles, no wheezes and lung sounds not diminished Cardio Rate: regular rate Rhythm: regular rhythm Peripheral pulses: radial pulses present and dorsalis pedis present GI Palpation (GI): no masses Auscultation: normal bowel sounds and normoactive bowel sounds Rectal Exam - Male: Yes deferred Skin General skin exam: no rashes or lesions noted Rashes: no rashes Neuro General: No confusion Cranial nerves: Yes Equal, round and reactive pupils present and Yes Normal hearing present Cognition (Neuro): normal cognition Gait exam (Neuro): Normal gait present Motor exam (neuro): 5/5 motor strength present throughout Deep tendon reflexes (DTR's): Right brachioradialis reflex intensity grade: 2+, Left brachioradialis reflex intensity grade: 2+, Right patellar reflex intensity grade: 2+ and Left patellar reflex intensity grade: 2+ Extrem General: No edema Assessment & Plan Assessment & Plan (1) S/P arthroscopy of right shoulder: Comment: Right shoulder ARCR SAD DCE biceps tenodesis versus tenotomy 07/23/2024 Dr. Fair right shoulder arthroscopy with subacromial decompression and partial acromioplasty and rotator cuff repair Code(s): Z98.890 - Other specified postprocedural states Plan: Continue to follow-up with orthopedics (2) Paroxysmal atrial fibrillation: Comment: Cardioversion Dr. Boston 1999 Code(s): I48.0 - Paroxysmal atrial fibrillation Plan: Continue with anticoagulation and metoprolol (3) Hypercholesterolemia: Code(s): E78.00 - Pure hypercholesterolemia, unspecified Plan: Avoid fried foods, chicken skin, eggs, butter margarine, pastries and meat. Be it pork or beef they have a lot of cholesterol. Discussed with the patient that due to the atherosclerosis a lower cholesterol is important and the patient's last cholesterol medication is on atorvastatin 10 mg once a day (4) BPH w urinary obs/LUTS: Comment: TURP 2022 [place] Code(s): N40.1 - Benign prostatic hyperplasia with lower urinary tract symptoms; N13.8 - Other obstructive and reflux uropathy Plan: Stable (5) Medicare annual wellness visit, subsequent: Code(s): Z00.00 - Encounter for general adult medical examination without abnormal findings Plan: Patient is advised to eat healthy, keep well hydrated, keep active and have adequate sleep. Plan History of Present Illness The patient is a 68-year-old male presenting for an annual physical examination and wellness visit. He has a history of atrial fibrillation, initially managed with cardioversion in 1999 and subsequently with ablation. The patient is currently on a low-dose beta-jesús and anticoagulation therapy with Eliquis 5 mg twice daily. The patient has benign prostatic hyperplasia and reports no significant urinary symptoms, although he occasionally wakes up once or twice at night to urinate. His prostate-specific antigen levels are within normal limits. He has hypercholesterolemia, with his last LDL cholesterol level recorded at 104 mg/dL in April. Due to mild to moderate atherosclerosis noted in the descending thoracic aorta, there is a plan to increase his atorvastatin dosage from 10 mg to 20 mg daily to better manage his cholesterol levels. 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 He has been diagnosed with sick sinus syndrome and obstructive sleep apnea, both of which are being monitored. The patient has Altamirano's esophagus, diagnosed in October 2023, and is due for a follow-up endoscopy. He reports tinnitus, which has been evaluated and does not require hearing aids at this time. The patient has irritable bowel syndrome, managed with dicyclomine and omeprazole, which has improved his symptoms significantly. He has onychomycosis and has been referred to podiatry for further management. The patient maintains a generally healthy lifestyle, although he admits to occasional alcohol consumption and smoking marijuana. He has received vaccinations for shingles, tetanus, and pneumonia, and his last colonoscopy was in 2020. 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 helper, which contributed to carpal tunnel syndrome - Lifestyle: Generally healthy, with some weight gain post-surgery Review of Systems - Cardiovascular: Denies chest pain, palpitations, or syncope - Respiratory: Denies dyspnea, cough, or wheezing - Gastrointestinal: Denies nausea, vomiting, or diarrhea; reports stable bowel movements - Genitourinary: Denies dysuria or hematuria; reports nocturia once or twice per night - Neurological: Reports tinnitus; denies dizziness or headaches Physical Exam General: Cooperative, healthy appearing, comfortable, no acute distress and well developed Orientation: Patient oriented x3 Limitations: No limitations Head: Normal to inspection Ears: Hearing grossly normal bilaterally, but patient reports tinnitus Nose: Normal external nose present Face and sinus: Normal facial exam Eyes: Appearance normal, both eyes and all related structures Neck: Normal visual inspection and Yes full ROM Respiratory: Normal respiratory effort and able to speak in complete sentences. Clear to auscultation bilaterally Cardiovascular: Regular rate and rhythm. Normal S1 and S2 GI: Normal to inspection. Soft to palpation and nontender Skin: No rashes or lesions noted, but patient reports basal cell removal Neuro: Patient oriented x3 Extremities: Normal to inspection, but patient reports carpal tunnel syndrome and trigger finger issues in the right hand Results - Labs: Normal blood count, electrolytes, renal function, liver function, B12, folic acid, and thyroid levels - Cholesterol: LDL 104 mg/dL in April - Echocardiogram: Dilated right-sided chambers, preserved RV systolic function, mild to moderate atherosclerosis in the aorta - Stress Test: Normal myocardial perfusion Plan The patient will continue anticoagulation therapy with Eliquis and beta-jesús therapy with metoprolol for atrial fibrillation management. Due to the presence of mild to moderate atherosclerosis, the patient's atorvastatin dosage will be increased from 10 mg to 20 mg daily to better manage hypercholesterolemia. A follow-up cholesterol test is scheduled for three months to assess the effectiveness of the increased atorvastatin dosage. The patient is advised to continue follow-up with orthopedics for his shoulder condition and podiatry for onychomycosis management. He is encouraged to maintain a healthy lifestyle, including a balanced diet and regular exercise, to support overall health and manage weight. Preventative care measures include staying up to date with vaccinations and scheduling a follow-up endoscopy for Altamirano's esophagus. Patient was informed and verbally consented to the use of an ambient scribe for clinic note documentation during this visit. Discussion Notes I discussed with the patient the importance of managing his cholesterol levels due to the presence of atherosclerosis and the plan to increase his atorvastatin dosage. We reviewed the need for regular follow-up appointments with orthopedics and podiatry. I emphasized the importance of maintaining a healthy lifestyle, including diet and exercise, and staying up to date with vaccinations. We also discussed the need for a follow-up endoscopy for Altamirano's esophagus. The patient was informed about the follow-up cholesterol test in three months to evaluate the effectiveness of the increased atorvastatin dosage. Patient Instructions - Continue taking Eliquis and metoprolol as prescribed. - Increase atorvastatin dosage to 20 mg daily. - Schedule a follow-up cholesterol test in three months. - Follow up with orthopedics and podiatry as advised. - Maintain a healthy diet and exercise regularly. - Stay up to date with vaccinations. - Schedule a follow-up endoscopy for Altamirano's esophagus. Orders: Orders Comprehensive Met. Panel 3 Months E78.00 - Pure hypercholesterolemia, unspecified Lipid Panel Today E78.00 - Pure hypercholesterolemia, unspecified Medications: Changed From atorvastatin 10 mg PO DAILY 90 tabs 2RF E78.00 - Pure hypercholestero lemia, unspecified To atorvastatin 20 mg PO DAILY 90 tabs 2RF E78.00 - Pure hypercholesterolemia, unspecified Quality Reporting (2019) Depression/Bipolar (159/160/161/177) PHQ-9: Total score: 0 Coding Level of Care Code Medicare Subsequent (G0439) Diagnoses S/P arthroscopy of right shoulder Z98.890 Paroxysmal atrial fibrillation I48.0 Hypercholesterolemia E78.00 BPH w urinary obs/LUTS N40.1; N13.8 Medicare annual wellness visit, subsequent Z00.00 Additional Codes PHQ-9 - 00690 - PHQ-9 Billing: Yes ([id number])
[2024-08-28 10:15] VITALS: BMI 26.7
--- OUTSIDE RECORDS SUMMARY | 2024-08-28 10:29 | XMS_ITS | Patient Health Record ---
Author Organization [facility] Shukri stoney Jeremiah Address [address] [place] [address] Care Team Providers Care Sushi Chef Name Role Phone Sukhdev Eisenberg MD Primary Care Provider Unavail able Maximo Romario Unavailable [phone] Reason For Referral No Information Medications Medication [...] Insured Coverage Start Date Coverage End Date [facility] [address] [place] [address] [id number] Kristopher Machado Self - patient is [...]
== END 2024-08-28 10:59 | disposition home or self-care (01) ==
LOC: HO.HMCH 10:03
PROVIDERS: PCP Internal Medicine; Visit Provider Internal Medicine
DX: Z00.00 Encounter for general adult medical examination without abnormal findings (principal); I48.0 Paroxysmal atrial fibrillation; Z98.890 Other specified postprocedural states; E78.00 Pure hypercholesterolemia, unspecified; N40.1 Benign prostatic hyperplasia with lower urinary tract symptoms; N13.8 Other obstructive and reflux uropathy

== ENCOUNTER → 2024-08-28 10:02 | Outpatient (BNVA) | payer MEDICARE, OTHER, SELFPAY | PROVIDERS: PCP Internal Medicine; Visit Provider Internal Medicine | DX: Z00.00 Encounter for general adult medical examination without abnormal findings (principal); I48.0 Paroxysmal atrial fibrillation; E78.00 Pure hypercholesterolemia, unspecified; N40.1 Benign prostatic hyperplasia with lower urinary tract symptoms; N13.8 Other obstructive and reflux uropathy; Z98.890 Other specified postprocedural states | CPT/HCPCS: 96127 ==

== ENCOUNTER 2024-09-24 11:28 | Outpatient (AMB) | payer MEDICARE, OTHER, SELFPAY ==
[2024-09-24 11:38] VITALS: BP 128/62; PULSE 56; TEMP 36.7; O2SAT 97; BMI 26.6
--- NOTE | 2024-09-24 11:38 | AM.OFFWIN_ITS ---
Intake Vital Signs 09/24/24 11:38 Height 5 ft 9 in Weight 180 lb BMI 26.6 BP 128/62 Blood Pressure Location Lt brachial Position Sitting Pulse 56 Pulse Source Pulse Oximeter Temp 98.1 F Temp Source Oral Pulse Oximetry (%) 97 Oxygen Delivery Method Room Air Intake Visit Reasons: EP Rt elbow swelling Intake Note: presents with right elbow swelling Patient Tobacco Use Status: Former Tobacco user Allergies No Known Allergies (No Known Allergies*) Allergy (Verified 09/24/24 11:44) Do you need a note to return to daycare/school/sports/work: No HPI HPI Comments History of Present Illness Details History - The patient is a 68-year-old male pres enting with right elbow swelling - The elbow swelling was first noticed d uring physical therapy for his shoulder, with no pain reported. - The patient is undergoing therapy and is s/p right shoulder, which may have contributed to the elbow condition. He didn't notice it, his PT did. - Denies injury to the elbow. Physical Exam General: Cooperative, healthy appearing, comfortable, no acute distress and well developed Orientation: Patient oriented x3 Limitations: Limited movement in arms, unable to move arm properly Head: Normal to inspection Ears: Hearing grossly normal bilaterally Nose: Normal External nose present Face and sinus: Normal facial exam Mouth: normal, moist oral mucosa Eyes: Appearance normal, both eyes and all related structures Neck: Normal visual inspection and Yes full ROM Respiratory: Normal respiratory effort and able to speak in complete sentences. Skin: no rashes or lesions noted Neuro: Patient oriented x3 Extremities: right elbow with soft golf ball at dorsal aspect of elbow, no skin changes no warmth. full ROM right elbow [facility] Medical History (Updated 09/24/24 @ 11:56 by Gladys Sanchez PA-C) Onychomycosis Bilateral hand numbness Vision changes Bilateral hand pain Dysphagia IBS (irritable bowel syndrome) Hyperlipidemia BPH (benign prostatic hyperplasia) Paroxysmal atrial fibrillation Surgical History (Updated 08/28/24 @ 10:11 by Shena Huerta CMA) S/P right rotator cuff repair (~07/2024) Hx of transurethral resection of prostate H/O neck surgery Hx of vasectomy Hx of hernia repair History of radiofrequency ablation (RFA) procedure for cardiac arrhythmia Hx of hemorrhoidectomy History of tonsillectomy and adenoidectomy Family History Father Cancer Lung cancer Mother Cancer Lung cancer Paternal Uncle Lung cancer Paternal Aunt Lung cancer Maternal Grandfather Rectal cancer Social History (Updated 08/28/24 @ 10:31 by Tal Cuellar MD) Household Members: Spouse Housing: Other Are you a primary chronic care nurse to a significant other at home: No Do you presently have visiting nurse or other home services: No Alcohol intake: current Alcohol intake frequency: 0-2 drinks per day Comment: 2 beers a day Patient Tobacco Use Status: Former Tobacco user Tobacco use type: Cigarette Years Smoked: quit 1999 14 years old start 2-3 pack aday marijuana e-Cigarette/Vaping Use: Never Used Second Hand Smoke Exposure: Yes Substance Use Type: Marijuana service: No Current occupational status: retired Current occupation: right hand dominant Cognitive needs: No Hearing needs: No Vision needs: No Review of Systems Const All systems reviewed & are unremarkable except as noted in HPI and below Physical Exam Vital Signs: Last Vital Signs Temp 98.1 F 09/24/24 11:38 Pulse 56 09/24/24 11:38 BP 128/62 09/24/24 11:38 Pulse Ox 97 09/24/24 11:38 Oxygen Delivery Method Room Air 09/24/24 11:38 BMI result Body Mass Index 26.6 Assessment & Plan Assessment & Plan (1) Olecranon bursitis, right elbow: Code(s): M70.21 - Olecranon bursitis, right elbow Plan: Plan Patient was informed and verbally consented to the use of an ambient scribe for clinic note documentation during this visit Olecranon Bursitis - Rest and ice application recommended to reduce swelling. - Use of NSAIDs like Aleve or Motrin suggested for inflammation control. - Advised to avoid steroids unless absolutely necessary due to potential side effects. - Follow-up recommended if symptoms worsen or do not improve. Coding Level of Care Code Est Pt Level 3 (60063) Diagnoses Olecranon bursitis, right elbow M70.21
--- OUTSIDE RECORDS SUMMARY | 2024-09-24 12:28 | XMS_ITS | Encounter Summary ---
Author Organization [facility] Address [address] [facility] [address] [place] [address] Phone Care Team Providers Care Relationship Executive Name Role Phone Danya Sorto CNP Primary Care Provider Robson Boston MD Unavailable [phone] Danya Sorto CNP Primary Care Provider Unknown, Unknown Primary Care Provider Sydni arevalo Encounter Details Date Type Department Care Team (Late st Contact Info) Description 11/06/2019 Procedure Pass [facility] Endoscopy Admitting Dept Virtual Department [address] [place] [address] [phone] Social History Tobacco Use Types Packs/Day Years Used Date Smoking Tobacco: Former Cigarettes 2 25 0 08/1979 - 08/2004 Smokeless Tobacco: Never Alcohol Use Standard Drinks/Week Comments Yes 21 (1 standard drink = 0.6 oz pu re alcohol) 3-4 beers per day Sex and Gender Information Value Date Recorded Sex Assigned at Not on file Legal Sex Male 1:28 PM EDT Gender Identity Not on file Sexual Orientation Not on file documented as of this encounter Plan of Treatment Not on file documented as of this encounter Visit Diagnoses Not on filedocumented in this encounter Additional Health Concerns Infection Onset Date Last Indicated Resolved Time CoV-Exposed Comment:Recent close contact 02/18/2020 02/18/2020 03/03/2020 1:23 AM EST documented as of this encounter Care Teams Relationship Executive Relationship Specialty Start Date End Date Danya Sorto CNP [address] [place] [address] [email or web address] PCP - General Internal Medicine 08/12/19 03/24/20 Danya Sorto CNP [address] [place] [address] [email or web address] PCP - General Internal Medicine 03/25/20 01/10/23 Unknown, Unknown, MD PCP - General 01/11/23 Robson Boston MD [address] [place] [address] [place] [id number] Cardiology 09/09/19 documented as of this encounter Additional Source Comments The information contained in this document represents components of the legal health record. It is not the complete legal health record.[facility]
--- OUTSIDE RECORDS SUMMARY | 2024-09-24 12:28 | XMS_ITS | Patient Health Record ---
Author Organization [facility] Shukri stoney [place] Address [address] [place] [address] Care Team Providers Care Screen Vent Binder Name Role Phone Sukhdev Eisenberg MD Primary Care Provider Unavail able Maximo Romario Unavailable [phone] Reason For Referral No Information Medications Medication [...] Insured Coverage Start Date Coverage End Date [facility] [address] [place] [address] [id number] Kristopher Machado Self - patient is [...]
== END 2024-09-24 12:51 | disposition home or self-care (01) ==
PROVIDERS: PCP Internal Medicine; Visit Provider Physician Assistant
DX: M70.21 Olecranon bursitis, right elbow (principal)

== ENCOUNTER → 2024-09-24 11:28 | Outpatient (BNVA) | payer MEDICARE, OTHER, SELFPAY | PROVIDERS: PCP Internal Medicine; Visit Provider Physician Assistant | DX: M70.21 Olecranon bursitis, right elbow (principal) | CPT/HCPCS: 99212 ==

== ENCOUNTER 2024-10-07 10:11 | Outpatient (REF) | payer MEDICARE, OTHER, SELFPAY ==
--- OUTSIDE RECORDS SUMMARY | 2024-10-07 10:56 | XMS_ITS | Encounter Summary ---
Author Organization [facility] Address [address] [facility] [address] [place] [address] Phone Care Team Providers Care Sales Representative Printing Supplies Name Role Phone Danya Sorto CNP Primary Care Provider Robson Boston MD Unavailable [phone] Danya Sorto CNP Primary Care Provider Unknown, Unknown Primary Care Provider Sydni arevalo Encounter Details Date Type Department Care Team (Late st Contact Info) Description 11/06/2019 Procedure Pass [facility] Endoscopy Admitting Dept Virtual Department [address] [place] [address] [phone] Social History Tobacco Use Types Packs/Day Years [...] documented as of this encounter Care Teams Sales Representative Printing Supplies Relationship Specialty Start Date End Date Danya Sorto CNP [address] [place] [address] [email or web address] PCP - General Internal Medicine 08/12/19 03/24/20 Danya Sorto CNP [address] [place] [address] [email or web address] PCP - General Internal Medicine 03/25/20 01/10/23 Unknown, Unknown, MD PCP - General 01/11/23 Robson Boston MD [address] [place] [address] [place] [address] Cardiology 09/09/19 documented as of this encounter Additional Source Comments The information contained in this document represents components of the legal health record. It is not the complete legal health record.[facility]
--- OUTSIDE RECORDS SUMMARY | 2024-10-07 10:56 | XMS_ITS | Clinical Summary ---
Author Organization [facility] Address [address] [facility] [address] [place] [address] Phone Care Team Providers Care Java Websphere Developer Name Role Phone Robson Boston MD Unavailable [phone] Unknown, Unknown Primary Care Provider Unavai lable Allergies No known active allergies Medications cholecalciferol (VITAMIN D3) 25 MCG (1,000 unit) tablet Take 1,000 Units by mouth daily. Active atorvastatin (LIPITOR) 10 MG tabletIndication s:Hyperlipidemia Take 1 tablet (10 mg total) by mouth daily. 90 tablet 3 06/01/2022 Active Active Problems Problem Noted Date Diagnosed Date History of smoking 06/11/2022 Assessment & Plan (06/11/2022 9:38 PM EDT): To schedule AAA screening Other hemorrhoids 05/31/2020 Diverticulosis 05/31/2020 Benign prostatic hyperplasia without lower urinary tract symptoms 03/24/2020 Assessment & Plan (06/11/2022 9:38 PM EDT): Continue regular follow-up with urology, symptoms manageable Seasonal allergic rhinitis 03/24/2020 Hyperlipidemia Assessment & Plan (06/11/2022 9:37 PM EDT): Continue atorvastatin, tolerating well. Atrial fibrillation Vitamin D deficiency Asbestos exposure GERD (gastroesophageal reflux disease) Immunizations Immunization Administration Dates Next Due COVID-19 (Pre-12/04) Pfizer Vaccine, mRNA, PF 05/13/2020,04/22/2020 Influenza High-Dose Trivalen t Preservative Free IM 02/14/2019 Influenza Quadrivalent Adjuv anted Preservative Free IM 01/31/2021 Influenza Quadrivalent w/ Preservative IM 2017,01/02/2017,12/31/2015 Pneumococcal conjugate PCV13 06/02/2021 Pneumococcal polysaccharide PPSV23 03/24/2014 Zoster recombinant 10/31/2021,06/20/2021 Family History Medical History Relation Comments Nephrolithiasis Brother 1 Hyperlipidemia Brother 2 Sleep apnea Brother 2 Lung disease Brother 5 Lung cancer Father Lung cancer Mother Lung cancer Paternal Aunt Lung cancer Paternal Uncle Basal cell carcinoma Sister 1 Nephrolithiasis Son Relation Status Comments Brother 1 Alive Brother 2 Alive Brother 3 MVA Brother 4 premature Brother 5 Alive Brother 6 Alive Daughter Alive Father (Age 59) Mother (Age 76) Paternal Aunt Paternal Uncle Sister 1 Alive Sister 2 Alive Sister 3 Alive Sister 4 Alive Son Alive Social History Tobacco Use Types Packs/Day Years Used Date Smoking Tobacco: Former Cigarettes 2 25 0 08/1979 - 08/2004 Smokeless Tobacco: Never Alcohol Use Standard Drinks/Week Comments Yes 21 (1 standard drink = 0.6 oz pu re alcohol) 3-4 beers per day Education Answer Date Recorded Are you interested in more education? Not on miri e 06/08/2022 Are you concerned about learning? Not on file 06/08/2022 No 06/08/2022 No 06/08/2022 Digital Access Answer Date Recorded No 07/08/2022 No 07/08/2022 No 07/08/2022 Reliable internet access at home? Not on file 07/08/2022 Device with a working camera? Not on file Intimate Partner Violence Answer Date R ecorded Denied Basic Needs Not on file 06/08/2022 In the past 12 months have y ou been in a relationship with a person who hurts, threatens, or tries to control you? No 06/08/2022 Worried food would run out Not on file 06/08 In the past 12 months have y ou been in a relationship with a person who hurts, threatens, or tries to control you? No 06/08/2022 Sex and Gender Information Value Date Recorded Sex Assigned at Not on file Legal Sex Male 1:28 PM EDT Gender Identity Not on file Sexual Orientation Not on file Last Filed Vital Signs Vital Sign Reading Time Taken Comments Blood Pressure 148/80 06/08/2022 10:03 AM EDT Pulse 57 06/08/2022 10:03 AM EDT Temperature 36.1 C (97 F) 11/06/2019 2:05 PM EDT Respiratory Rate 16 06/08/2022 10:0 3 AM EDT Oxygen Saturation 97% 06/08/2022 10: 03 AM EDT Inhaled Oxygen Concentration - - Weight 81.1 kg (178 lb 12.8 oz) 023 10:03 AM EDT Height 174.6 cm (5' 8.75 ) 06/08/2022 1 0:03 AM EDT Body Mass Index 26.6 06/08/2022 10:03 AM EDT Plan of Treatment Health Maintenance Due Date Last Done Comments Adult Td,Tdap Booster 1955 SMOKING Hx and SMOKELESS TOBACCO SCREENING 1966 HEPATITIS C SCREENING 11/22/1971 COLOGUARD 1998 FIT TEST 1998 FOBT 1998 SIGMOIDOSCOPY 1998 VIRTUAL COLONOSCOPY 1998 DEPRESSION SCREENING 06/09/2023 06/08/2022, 06/02/2021 COVID-19 VACCINE (4 - 2023-2 5 season) 2023 01/31/2021, 05/13/2020, 04/22/2020 PNEUMOCOCCAL VACCINES (50+ years) (3 of 3 - PCV20 or PCV21) 06/02/2026 06/02/2021, 03/24/2014 LIPID PANEL 06/10/2027 06/09/2022, 06/03/2021, 06/04/2020 RSV VACCINE (1 - 1-dose 75+ series) 2028 COLONOSCOPY 11/05/2029 11/06/2019 COLORECTAL CANCER SCREENING 11/05/2029 ZOSTER VACCINES Completed 10/31/2021, 06/20/2021 ABDOMINAL AORTIC ANEURYSM (AAA) SCREENING Completed 06/08/2022 HEPATITIS A VACCINES Aged Out No long er eligible based on patient's age to complete this topic HIB VACCINES Aged Out No longer eligi ble based on patient's age to complete this topic MENINGOCOCCAL VACCINES (ACWY) Aged Out No longer eligible based on patient's age to complete this topic MENINGOCOCCAL VACCINES (B) Aged Out N o longer eligible based on patient's age to complete this topic Medical Devices Implanted Type Area Supervising Librarian Device Identifier Shelf Expiration Date Model / Serial / Lot Bilateral Inguinal Hernia Mesh Procedures Procedure Name Priority Date/Time Associated Diagnosis Comments LIPID PANEL Routine 06/09/2022 8:45 AM EDT Mixed hyperlipidemia US ABDOMINAL AORTIC SCREENING Routine 06/08/2022 10:47 AM EDT History of smoking ENDOSCOPY, COLON 11/06/2019 1:34 PM EDT from Last 3 Months or Most Recently Relevant to Health Maintenance Results * (ABNORMAL) Lipid panel (06/09/2022 8:45 AM EDT) HDL 76 mg/dL [facility] Comment: Interpretation <40 mg/dL: Low HDL cholesterol (major risk factor for CHD) Greater than or equal to 60 mg/dL: High HDL cholesterol ( negative risk factor for CHD) HDL - cholesterol is affected by a number of factors, e.g. smoking, excerise, hormones, sex and age. CHOLESTEROL 187 0 - 240 mg/dL [facility] TRIGLYCERIDES 121 30 - 160 mg/dL [facility] LDL 87 50 - 129 mg/dL [facility] Comment: LDL levels in terms of risk for coronary heart disease: <100 mg/dL: Optimal 100-129 mg/dL: Near or above optimal 130-159 mg/dL: Borderline high 160-189 mg/dL: High >190 mg/dL: Very High CARDIAC RISK RATIO 2.5(L) 3.4 - 5.0 [facility] Blood 06/09/2022 8:45 AM EDT 06/09/2022 8:50 AM EDT Danya Sorto SALESPERSON [employer] LAB BLOOD ORDERABLES F inal Result [address] [address] * ENDOSCOPY, COLON (11/06/2019 1:34 PM EDT) Narrative Transcriptions Jonathan Retana MD - 11/06/2019 1:34 PM EDT Patient Name: Kristopher Basurto Attending MD:: JONATHAN RETANA MD Procedure Date: 11/06/2019 1:34 PM Date of : 1955 Age: 63 Admit Type: Outpatient Gender: Male Room: [place] [address] Referring MD: Danya Sorto Exam Type: Colonoscopy Indications: Screening for colorectal malignant neoplasm, Last colonoscopy: date unknown (unable to locate last colonoscopy report), Last colonoscopy 10 years ago, Incidental change in bowel habits noted Medications: Propofol per Anesthesia Procedure: Informed consent was obtained from the patient after discussion of the indications, limitations, alternatives, benefits, and risks of the procedure. Risks specifically discussed include but are not limited to medication reactions, missed lesions, bleeding, perforation, or the need for emergentsurgery. Throughout the procedure, the patient's bloodpressure, pulse, end-tidal CO2, and oxygen saturations were monitored continuously. The Olympus adult variable colonoscope CF-NI370V #1was introduced through the anus and advanced to thececum, identified by appendiceal orifice and ileocecalvalve. The appendiceal orifice was photographed. The colonoscopy was performed without difficulty. The patient tolerated the procedure well. The quality of the bowel preparation was good. The bowelpreparation used was GoLYTELY via split dose instruction. Complications: No immediate complications. Estimated blood loss:None. Findings: The digital rectal exam was normal. Pertinentnegatives include no palpable rectal lesions. External hemorrhoids were found during perianalexam. The hemorrhoids were small. The retroflexed view of the distal rectum and anal verge was normal and showed no anal or rectal abnormalities. Multiple medium-mouthed diverticula were found inthe sigmoid colon. There was evidence of diverticularspasm. The exam was otherwise without abnormality. Retroflexion in the right colon was performed. Impression: - External hemorrhoids. - The distal rectum and anal verge are normal on retroflexion view. - Moderate diverticulosis in the sigmoid colon.There was evidence of diverticular spasm. - The examination was otherwise normal. - No specimens collected. Recommendation: - Repeat colonoscopy in 10 years for screeningpurposes. - Use fiber, for example Citrucel, Fibercon, Konsylor Metamucil. JONATHAN RETANA MD 11/06/2019 2:04:18 PM This report has been signed electronically. Number of Addenda: 0 Note Initiated On: 11/06/2019 1:34 PM Procedure Code(s): --- Professional --- 09974, Colonoscopy, flexible; diagnostic, including collection of specimen(s) by brushing or washing, when performed (separateprocedure) --- Technical --- 44314, Colonoscopy, flexible; diagnostic, including collection of specimen(s) by brushing or washing, when performed (separateprocedure) Diagnosis Code(s): --- Professional --- Z12.11, Encounter for screening for malignantneoplasm of colon K64.4, Residual hemorrhoidal skin tags K57.30, Diverticulosis of large intestine without perforation or abscess without bleeding --- Technical --- Z12.11, Encounter for screening for malignantneoplasm of colon K64.4, Residual hemorrhoidal skin tags K57.30, Diverticulosis of large intestine without perforation or abscess without bleeding CPT copyright 2018 [employer]. All rights reserved. The codes documented in this report are preliminary and upon planishing hammer operator reviewmay be revised to meet current compliance requirements. Procedure Date: 11/06/2019 1:34:07 PM [address] [place] [address] Danya Renee Carinalisette [employer]ERSON [employer] GI PROCEDURE ORDERABLE S Edited Result - Final from Last 3 Months or Most Recently Relevant to Health Maintenance Insurance MEDICARE PART A & B [facility] MEDICARE REPLACEMENT MEDICARE PART A & B [facility] MEDICARE REPLACEMENT MEDICARE PART A & B MEDICARE REPLACEMENT [place] [id number] MEDICARE PART A & B MEDICARE REPLACEMENT MEDICARE PART A & B MEDICARE REPLACEMENT MEDICARE PART A & B Member Subscriber Plan / Payer (Ef fective 2018-Present) Name:Kristopher Basurto Member ID:[id number] Relation to Subscriber:Self Name:Kristopher Basurto Subscriber ID:[id number] Payer ID:[id number] Group ID:Not on file Type:Medicare Address: [employer] [address] MEDICARE REPLACEMENT MEDICARE PART A & B [facility] MEDICARE REPLACEMENT MEDICARE PART A & B MEDICARE REPLACEMENT MEDICARE PART A & B MEDICARE REPLACEMENT [place] [id number] Care Teams Java Websphere Developer Relationship Specialty Start Date End Date Unknown, Unknown, MD PCP - General 01/11/23 Robson Boston MD [address] [place] [address] [address] [place] [address] Cardiology 09/09/19 Additional Source Comments The information contained in this document represents components of the legal health record. It is not the complete legal health record.[facility]
[2024-10-07 13:54] LABS: Alanine Aminotransferase 23 U/L (0-40); Albumin Level 4.7 g/dL (3.5-5.0); Alkaline Phosphatase 91 U/L (39-117); Aspartate Amino Transferase 27 U/L (5-37); Total Protein 7.5 g/dL (6.5-8.0)
== END 2024-10-07 10:12 | disposition home or self-care (01) ==
LOC: HO.HMGCLDS 10:11
PROVIDERS: PCP Internal Medicine; Visit Provider Podiatrist
DX: B35.1 Tinea unguium (principal)
CPT/HCPCS: 36415; 80076

== ENCOUNTER 2024-11-14 09:54 | Outpatient (AMB) | payer MEDICARE, OTHER, SELFPAY ==
[2024-11-14 10:06] VITALS: BP 118/78; PULSE 44; O2SAT 96; BMI 26.4
--- NOTE | 2024-11-14 10:06 | A.OFFVIS_ITS ---
Vital Signs 11/14/24 10:06 Height 5 ft 9 in Weight 179 lb BMI 26.4 BP 118/78 Blood Pressure Location Lt brachial Position Sitting Pulse 44 L Pulse Source Pulse Oximeter Pulse Oximetry (%) 96 Oxygen Delivery Method Room Air Intake Visit Reasons: 4m follow up Intake Note: Patient presents follow up NICHOLAS. Patient had rotar cuff surgery in July. Not sure what follow up is for. Accompanied by: Self / Same As Patient Allergies No Known Allergies (No Known Allergies*) Allergy (Verified 11/14/24 10:10) HPI Comments Details: 68 year old patient with Afib, presents for evaluation of NICHOLAS and sleep study results. HST 04/29/2024 AHI c/w 6.7 and supine 17 oxygen minda to 83% with moderate snoring 40% of study. R. rotator cuff therapy in July 23, 2024, [facility], he started PT 7 weeks later, and is now doing better but sleep continues to be fragmented. He has multiple night time arousals with tossing and turning, discomfort in r. side due to cts, trigger finger and compression of median nerve. Pulse is low today at 44 and he has Afib well managed with meds. Turp for BPH in 2019, with symptoms moderately improving. He denies bruxism, parasomnias. He has sinus headaches with colds. Has cts, r. hand and surgery upcoming in Dec 23, 2024, and bursitis r. elbow. He denies RLS. Mood and memory are stable. Labs reviewed with patient, we can improve b12 levels to improve symptoms of chronic fatigue. He is a former smoker, quit about 15 years ago, currently uses MJ to help him sleep. [facility] Medical History Onychomycosis Bilateral hand numbness Vision changes Bilateral hand pain Dysphagia IBS (irritable bowel syndrome) Hyperlipidemia BPH (benign prostatic hyperplasia) Paroxysmal atrial fibrillation Surgical History S/P right rotator cuff repair (~07/2024) Hx of transurethral resection of prostate H/O neck surgery Hx of vasectomy Hx of hernia repair History of radiofrequency ablation (RFA) procedure for cardiac arrhythmia Hx of hemorrhoidectomy History of tonsillectomy and adenoidectomy Family History Father Cancer Lung cancer Mother Cancer Lung cancer Paternal Uncle Lung cancer Paternal Aunt Lung cancer Maternal Grandfather Rectal cancer Social History Household Members: Spouse Housing: Other Are you a primary pet care worker to a significant other at home: No Do you presently have visiting nurse or other home services: No Alcohol intake: current Alcohol intake frequency: 0-2 drinks per day Comment: 2 beers a day Patient Tobacco Use Status: Former Tobacco user Tobacco use type: Cigarette Years Smoked: quit 1999 14 years old start 2-3 pack aday marijuana e-Cigarette/Vaping Use: Never Used Second Hand Smoke Exposure: Yes Substance Use Type: Marijuana service: No Current occupational status: retired Current occupation: right hand dominant Cognitive needs: No Hearing needs: No Vision needs: No Physical Exam Vital Signs: Last Vital Signs Pulse 44 L 11/14/24 10:06 BP 118/78 11/14/24 10:06 Pulse Ox 96 11/14/24 10:06 Oxygen Delivery Method Room Air 11/14/24 10:06 BMI result Body Mass Index 26.4 Const General: cooperative, comfortable and no acute distress Orientation/consciousness: patient oriented x3 HEENT Face and sinus: Yes face symmetric Teeth and gingiva: other (mallampti score 4) Eyes Pupils: Equal, round and reactive pupils present Neck Other: Limited ROM on lateral rotation due to c/4/5 procedure. Resp Effort & Inspection: normal respiratory effort and able to speak in complete sentences Neuro General: patient oriented x3 and moves all extremities Cranial nerves: Yes Facial sensation intact/muscles of mastication intact, Yes Equal, round and reactive pupils present, Yes Normal accommodation reflex present, Yes Bilaterally intact EOM present, Yes Nystagmus not present, Yes Normal facial strength present, Yes Midline tongue present, Yes Ability to bilaterally rotate head present (with limited rom) and Yes Ability to bilaterally elevate shoulders present Cognition (Neuro): normal cognition Gait exam (Neuro): Normal gait present Motor exam (neuro): Abnormal motor strength present (4/5) Psych Appearance: grossly normal Speech and movement: Normal speech and movement present Affect: normal affect Thought process: Normal thought process present Thought content: Normal thought content present Results Reviewed Results Reviewed: HST 04/29/2024 AHI c/w 6.7 and supine 17 oxygen minda to 83% with moderate snoring 40% of study. labs reviewed with pt Assessment & Plan Assessment & Plan (1) NICHOLAS (obstructive sleep apnea): Comment: mild AHI is 6.7 o2 nadirs to 83% Code(s): G47.33 - Obstructive sleep apnea (adult) (pediatric) Category: Medical (2) Fatigue: Code(s): R53.83 - Other fatigue Category: Medical Qualifiers: Fatigue type: chronic, unspecified Qualified Code(s): R53.82 - Chronic fatigue, unspecified (3) Carpal tunnel syndrome of right wrist: Comment: 02/2019 Code(s): G56.01 - Carpal tunnel syndrome, right upper limb Category: Medical Plan HST c/w AHI 6.4 and oxygen minda to 84%, with snoring 40% of sleep, will start him on Cpap [id number] and f/u for compliance.cpap rx - mask fitting chin straps. Insomnia with disrupted sleep patterns continue 5-10mg po melatonin, prn. CTS Gabapentin 100mg po daily at bedtime. Optimize sleep hygiene. 3 months f/u Medications: New gabapentin 100 mg PO BEDTIME 90 caps 3RF 3 months MDD 100 G56.01 - Carpal tunnel syndrome, right upper limb Changed From cholecalciferol (vitamin D3) 25 mcg PO DAILY To cholecalciferol (vitamin D3) 25 mcg PO DAILY 90 caps 2RF 3 months Patient Instructions: Sleep Hygiene provided: set a scheduled bedtime and wake time to help regulate the circadian rhythm and balance the release of pituitary hormones. Sleep in a dark room, temperatures below 68 degrees, and no devices n bed. Limit caffeinated products 6 hours prior to bed, and limit fluids 2-4 hours prior to bed. Gentle night yoga, diffusing essential oils, and playing soft music can be relaxing. Optimize sleep by taking gabapentin 100-200mg po daily at bedtime and avoid daytime naps. Continue vitamin D daily otc. Continue B12 1000mcg po daily at bedtime. Coding Level of Care Code Est Pt Level 4 (07519) Diagnoses NICHOLAS (obstructive sleep apnea) G47.33 Chronic fatigue R53.82 Fatigue type: chronic, unspecified Carpal tunnel syndrome of right wrist G56.01
--- OUTSIDE RECORDS SUMMARY | 2024-11-14 10:36 | XMS_ITS | Patient Health Record ---
Author Organization [facility] Shukri stoney Rosalie Address [address] [place] [address] Care Team Providers Care Supervisor [employer] Name Role Phone Sukhdev Eisenberg MD Primary Care Provider Unavail able Maximo Romario Unavailable [phone] Reason For Referral No Information Medications Medication [...] Date [facility] [address] [place] [address] [id number] Kristopher Machado Self - patient is [...]
--- OUTSIDE RECORDS SUMMARY | 2024-11-14 10:36 | XMS_ITS | Clinical Summary ---
Author Organization [facility] Address [address] [facility] [address] [place] [address] Phone Care Team Providers Care Improvement Rn Name Role Phone Robson Boston MD Unavailable [phone] Unknown, Unknown Primary Care Provider Unavai lable [...] VIRTUAL COLONOSCOPY 1998 DEPRESSION SCREENING 06/09/2023 06/08/2022, 06/03/19 22 INFLUENZA VACCINE (#1) 2024 , 02/14/2019, 01/17/2018, Additional history exists COVID-19 VACCINE (2024- season) 2024 01/31/2021, 05/13/2020, 04/22/2020 PNEUMOCOCCAL VACCINES (50+ years) (3 of 3 - PCV20 or PCV21) 06/02/2026 06/02/2021, 03/24/2014 LIPID PANEL 06/10/2027 06/09/2022, 05/14, 06/04/2020 RSV VACCINE (1 - 1-dose 75+ [...] this topic Medical Devices Implanted Type Area Book Reviewer Device Identifier Shelf Expiration Date Model / [...] (06/09/2022 8:45 AM EDT) HDL 76 mg/dL [facility] Comment: Interpretation <40 mg/dL: Low HDL cholesterol (major risk factor for CHD) Greater than or equal to 60 mg/dL: High HDL cholesterol ( negative risk factor for CHD) HDL - cholesterol is affected by a number of factors, e.g. smoking, excerise, hormones, sex and age. CHOLESTEROL 187 0 - 240 mg/dL [facility] TRIGLYCERIDES 121 30 - 160 mg/dL [facility] LDL 87 50 - 129 mg/dL [facility] Comment: LDL levels in terms of risk for coronary heart disease: <100 mg/dL: Optimal 100-129 mg/dL: Near or above optimal 130-159 mg/dL: Borderline high 160-189 mg/dL: High >190 mg/dL: Very High CARDIAC RISK RATIO 2.5(L) 3.4 - 5.0 [facility] Blood 06/09/2022 8:45 AM EDT 06/09/2022 8:50 AM EDT Danya Sorto [facility] LAB BLOOD ORDERABLES F inal Result [facility] [address] [place] [address] * ENDOSCOPY, COLON (11/06/2019 1:34 PM EDT) Narrative Transcriptions Jonathan Retana MD - 11/06/2019 1:34 PM EDT Patient Name: Kristopher Sb Attending MD:: JONATHAN RETANA MD Procedure Date: 11/06/2019 1:34 PM Date of : 1955 Age: 63 Admit Type: Outpatient Gender: Male Room: [place] [address] Referring MD: Danya Sorto Exam Type: Colonoscopy [...] monitored continuously. The Olympus adult variable colonoscope [id number] #1was introduced through the anus and advanced [...] 1:34 PM Procedure Code(s): --- Professional --- 73322, Colonoscopy, flexible; diagnostic, including collection of specimen(s) by brushing or washing, when performed (separateprocedure) --- Technical --- 52521, Colonoscopy, flexible; diagnostic, including collection of specimen(s) [...] or abscess without bleeding CPT copyright 2018 [employer]. All rights reserved. The codes documented in this report are preliminary and upon sheep killer reviewmay be revised to meet current compliance requirements. Procedure Date: 11/06/2019 1:34:07 PM [address] [place] [address] Danya Sorto CNP GI PROCEDURE ORDERABLE S Edited Result - Final from Last 3 Months or Most Recently Relevant to Health Maintenance Insurance MEDICARE PART A & B [facility] [place] [address] MEDICARE PART A & B Member Subscriber Plan / Payer (Ef fective 2018-Present) Name:Kristopher Basurto Member ID:[id number] Relation to Subscriber:Self Name:Kristopher Basurto Subscriber ID:[id number] Payer ID:[id number] Group ID:Not on file Type:Medicare Address: [employer] [address] MEDICARE REPLACEMENT MEDICARE PART A & B Member Subscriber Plan / Payer (Ef fective 2018-) Name:Kristopher Basurto Member ID:[id number] Relation to Subscriber:Self Name:Kristopher Basurto Subscriber ID:[id number] Payer ID:[id number] Group ID:Not on file Type:Medicare Address: [employer] [address] MEDICARE REPLACEMENT MEDICARE PART A & B MEDICARE REPLACEMENT MEDICARE PART A & B MEDICARE REPLACEMENT MEDICARE PART A & B MEDICARE REPLACEMENT MEDICARE PART A & B Member Subscriber Plan / Payer (Ef fective 2018-Present) Name:Kristopher Basurto Member ID:[id number] Relation to Subscriber:Self Name:Kristopher Basurto Subscriber ID:[id number] Payer ID:[id number] Group ID:Not on file Type:Medicare Address: [employer] [address] MEDICARE REPLACEMENT MEDICARE PART A & B MEDICARE REPLACEMENT MEDICARE PART A & B UNITED PPO AARP MEDICARE REPLACEMENT Care Teams Improvement Rn Relationship Specialty Start Date End Date Unknown, Unknown, MD PCP - General 01/11/23 Robson Boston MD [address] [place] [address] [address] [place] [address] Cardiology 09/09/19 Additional Source Comments The information contained in this document represents components of the legal health record. It is not the complete legal health record.[facility]
--- OUTSIDE RECORDS SUMMARY | 2024-11-14 10:36 | XMS_ITS | Encounter Summary ---
Author Organization [facility] Address [address] [facility] [address] [place] [address] Phone Care Team Providers Care Extractor Operator Solvent Process Name Role Phone Danya Sorto CNP Primary Care Provider Robson Boston MD Unavailable [phone] Danya Sorto CNP Primary Care Provider Unknown, Unknown Primary Care Provider Sydni arevalo Encounter Details Date Type Department Care Team (Late st Contact Info) Description 11/06/2019 Procedure Pass [facility] Endoscopy Admitting Dept Virtual Department [address] [place] [address] [phone] Social History Tobacco Use Types Packs/Day Years [...] documented as of this encounter Care Teams Extractor Operator Solvent Process Relationship Specialty Start Date End Date Danya Sorto CNP [address] [place] [address] [email or web address] PCP - General Internal Medicine 08/12/19 03/24/20 Danya Sorto CNP [address] [place] [address] [email or web address] PCP - General Internal Medicine 03/25/20 01/10/23 Unknown, Unknown, MD PCP - General 01/11/23 Robson Boston MD [address] [place] [address] [place] [address] Cardiology 09/09/19 documented as of this encounter Additional Source Comments The information contained in this document represents components of the legal health record. It is not the complete legal health record.[facility]
== END 2024-11-14 10:51 | disposition home or self-care (01) ==
LOC: HO.HSMS 09:54
PROVIDERS: PCP Internal Medicine; Visit Provider Physician Assistant Medical
DX: G47.33 Obstructive sleep apnea (adult) (pediatric) (principal); R53.82 Chronic fatigue, unspecified; G56.01 Carpal tunnel syndrome, right upper limb
CPT/HCPCS: 99214

== ENCOUNTER → 2024-11-14 09:54 | Outpatient (BNVA) | payer MEDICARE, OTHER, SELFPAY | PROVIDERS: PCP Internal Medicine; Visit Provider Physician Assistant Medical | DX: G47.33 Obstructive sleep apnea (adult) (pediatric) (principal); G56.01 Carpal tunnel syndrome, right upper limb; R53.82 Chronic fatigue, unspecified; Z79.899 Other long term (current) drug therapy | CPT/HCPCS: 99212 ==

== ENCOUNTER 2024-11-21 12:42 | Outpatient (REF) | payer MEDICARE, OTHER, SELFPAY ==
[2024-11-21 17:02] LABS: Albumin Level 4.6 g/dL (3.5-5.0); Alkaline Phosphatase 87 U/L (39-117); Aspartate Amino Transferase 37 U/L (5-37); Total Protein 7.0 g/dL (6.5-8.0)
[2024-11-21 17:18] LABS: Alanine Aminotransferase 54 U/L (0-40)
[2024-11-21 17:27] LABS: Alanine Aminotransferase 51 U/L (0-40); Albumin Level 4.7 g/dL (3.5-5.0); Alkaline Phosphatase 88 U/L (39-117); Anion Gap 12 (12-20); Aspartate Amino Transferase 48 U/L (5-37); Blood Urea Nitrogen 8 mg/dL (9-16); Calcium 9.5 mg/dL (8.4-10.2); Carbon Dioxide 28 mmol/L (22-29); Chloride 104 mmol/L (96-108); Cholesterol 180 mg/dL (<200); Estimated Glomerular Filt Rate > 60; HDL Cholesterol 54 mg/dL (>40); Potassium 4.0 mmol/L (3.3-5.1); Sodium 140 mmol/L (135-145); Total Protein 7.0 g/dL (6.5-8.0); Triglycerides 295 mg/dL (<150)
== END 2024-11-21 12:43 | disposition home or self-care (01) ==
LOC: HO.HMGCLDS 12:42
PROVIDERS: PCP Internal Medicine; Visit Provider Podiatrist
DX: B35.1 Tinea unguium (principal); E78.00 Pure hypercholesterolemia, unspecified
CPT/HCPCS: 36415; 80053; 80061; 80076; 82248

== ENCOUNTER 2024-11-26 13:45 | Outpatient (REF) | payer MEDICARE, OTHER, SELFPAY ==
[2024-11-26 16:44] LABS: Alanine Aminotransferase 39 U/L (0-40); Albumin Level 4.6 g/dL (3.5-5.0); Alkaline Phosphatase 77 U/L (39-117); Aspartate Amino Transferase 32 U/L (5-37); Total Protein 6.9 g/dL (6.5-8.0)
--- OUTSIDE RECORDS SUMMARY | 2024-11-26 17:31 | XMS_ITS | Encounter Summary ---
Author Organization [facility] Address [address] [facility] [address] [place] [address] Phone Care Team Providers Care Shoveler Name Role Phone Danya Sorto CNP Primary Care Provider Robson Boston MD Unavailable [phone] Danya Sorto CNP Primary Care Provider Unknown, Unknown Primary Care Provider Sydni arevalo Encounter Details Date Type Department Care Team (Late st Contact Info) Description 11/06/2019 Procedure Pass [facility] Endoscopy Admitting Dept Virtual Department [address] [place] [address] [phone] Social History Tobacco Use Types Packs/Day Years [...] documented as of this encounter Care Teams Shoveler Relationship Specialty Start Date End Date Danya Sorto CNP [address] [place] [address] [email or web address] PCP - General Internal Medicine 08/12/19 03/24/20 Danya Sorto CNP [address] [place] [address] [email or web address] PCP - General Internal Medicine 03/25/20 01/10/23 Unknown, Unknown, MD PCP - General 01/11/23 Robson Boston MD [address] [place] [address] [place] [address] Cardiology 09/09/19 documented as of this encounter Additional Source Comments The information contained in this document represents components of the legal health record. It is not the complete legal health record.[facility]
--- OUTSIDE RECORDS SUMMARY | 2024-11-26 17:31 | XMS_ITS | Clinical Summary ---
Author Organization [facility] Address [address] [facility] [address] [place] [address] Phone Care Team Providers Care Office Workforce Planner Name Role Phone Robson Boston MD Unavailable [phone] Unknown, Unknown Primary Care Provider Unavai lable [...] this topic Medical Devices Implanted Type Area Belt And Link Shop Supervisor Device Identifier Shelf Expiration Date Model / [...] (06/09/2022 8:45 AM EDT) HDL 76 mg/dL [facility] Comment: Interpretation <40 mg/dL: Low HDL cholesterol (major risk factor for CHD) Greater than or equal to 60 mg/dL: High HDL cholesterol ( negative risk factor for CHD) HDL - cholesterol is affected by a number of factors, e.g. smoking, excerise, hormones, sex and age. CHOLESTEROL 187 0 - 240 mg/dL [facility] TRIGLYCERIDES 121 30 - 160 mg/dL [facility] LDL 87 50 - 129 mg/dL [facility] Comment: LDL levels in terms of risk for coronary heart disease: <100 mg/dL: Optimal 100-129 mg/dL: Near or above optimal 130-159 mg/dL: Borderline high 160-189 mg/dL: High >190 mg/dL: Very High CARDIAC RISK RATIO 2.5(L) 3.4 - 5.0 [facility] Blood 06/09/2022 8:45 AM EDT 06/09/2022 8:50 AM EDT Danya Sorto [facility] LAB BLOOD ORDERABLES F inal Result [facility] [address] [place] [address] * ENDOSCOPY, COLON (11/06/2019 1:34 PM EDT) Narrative Transcriptions Jonathan Retana MD - 11/06/2019 1:34 PM EDT Patient Name: Kristopher Sb Attending MD:: JONATHAN RETANA MD Procedure Date: 11/06/2019 1:34 PM Date of : 1955 Age: 63 Admit Type: Outpatient Gender: Male Room: [place] [address] Referring MD: Danya Sorto Exam Type: Colonoscopy [...] monitored continuously. The Olympus adult variable colonoscope [id number] #1was introduced through the anus and advanced [...] 1:34 PM Procedure Code(s): --- Professional --- 79277, Colonoscopy, flexible; diagnostic, including collection of specimen(s) by brushing or washing, when performed (separateprocedure) --- Technical --- 12243, Colonoscopy, flexible; diagnostic, including collection of specimen(s) [...] or abscess without bleeding CPT copyright 2018 [employer]. All rights reserved. The codes documented in this report are preliminary and upon surveillance inspector reviewmay be revised to meet current compliance requirements. Procedure Date: 11/06/2019 1:34:07 PM [address] [place] [address] Danya Sorto CNP GI PROCEDURE ORDERABLE S Edited Result - Final from Last 3 Months or Most Recently Relevant to Health Maintenance Insurance MEDICARE PART A & B [facility] MEDICARE REPLACEMENT MEDICARE PART A & B Member Subscriber Plan / Payer (Ef fective 2018-Present) Name:Kristopher Basurto Member ID:[id number] Relation to Subscriber:Self Name:Kristopher Basurto Subscriber ID:[id number] Payer ID:[id number] Group ID:Not on file Type:Medicare Address: [employer] [address] MEDICARE REPLACEMENT MEDICARE PART A & B Member Subscriber Plan / Payer (Ef fective 2018-) Name:Kristopher Basurto Member ID:[id number] Relation to Subscriber:Self Name:Kristopher Basurto Subscriber ID:[id number] Payer ID:[id number] Group ID:Not on file Type:Medicare Address: [employer] [address] MEDICARE REPLACEMENT MEDICARE PART A & B MEDICARE REPLACEMENT MEDICARE PART A & B MEDICARE REPLACEMENT MEDICARE PART A & B MEDICARE REPLACEMENT MEDICARE PART A & B Member Subscriber Plan / Payer (Ef fective 2018-Present) Name:Kristopher Basurto Member ID:[id number] Relation to Subscriber:Self Name:Kristopher Basurto Subscriber ID:[id number] Payer ID:[id number] Group ID:Not on file Type:Medicare Address: [employer] [address] MEDICARE REPLACEMENT MEDICARE PART A & B MEDICARE REPLACEMENT MEDICARE PART A & B UNITED PPO AARP MEDICARE REPLACEMENT Care Teams Office Workforce Planner Relationship Specialty Start Date End Date Unknown, Unknown, MD PCP - General 01/11/23 Robson Boston MD [address] [place] [address] [address] [place] [address] Cardiology 09/09/19 Additional Source Comments The information contained in this document represents components of the legal health record. It is not the complete legal health record.[facility]
--- OUTSIDE RECORDS SUMMARY | 2024-11-26 17:31 | XMS_ITS | Patient Health Record ---
Author Organization [facility] Address [address] [place] [address] Support Name Relationship Address Phone OLE CA Guarantor Unknown Unavailab le Reason For Referral No Information Medications Medication SIG (Take, Route, Frequency, Duration) Notes Start Date End Date Status Indomethacin 50 MG Take 1 tab PO TID prn pain 07/06/2017 Active Plan Of Treatment No Information Insurance Providers Payer Name Payer Address Payer Phone Subscriber Number Group Number Insured Name Patient Relationship to Insured Coverage Start Date Coverage End Date [facility] [address] [address] [place] [address] [id number] OLE WILKINS Self - patient is the insured
--- OUTSIDE RECORDS SUMMARY | 2024-11-26 17:31 | XMS_ITS | Patient Health Record ---
Author Organization [facility] Shukri stoney [place] Address [address] [place] [address] Care Team Providers Care Biometrics Experimentalist Name Role Phone Sukhdev Eisenberg MD Primary Care Provider Unavail able Romario Beal Unavailable [phone] Reason For Referral No Information Medications Medication [...] Insured Coverage Start Date Coverage End Date [facility] [address] [place] [address] [id number] [phone] Kristopher Machado Self - patient is [...]
[2024-11-27 05:17] LABS: HBS Num1 0.10 mIU/mL (0-7.99); HBc Num1 0.06 S/CO (0.00-0.79); HBsAGNum1 0.38 S/CO (0.00-0.99); Hepatitis B Surface Antigen Negative (Negative); ~HepC Num1 0.10 S/CO (0.00-0.79); ~Hepatitis B Surface Antibody NONREACTIVE (Nonreactive); ~Hepatitis C Antibody Nonreactive (Nonreactive)
== END 2024-11-26 13:46 | disposition home or self-care (01) ==
LOC: HO.HMGCLDS 13:45
PROVIDERS: PCP Internal Medicine; Visit Provider Internal Medicine
DX: R79.89 Other specified abnormal findings of blood chemistry (principal)
CPT/HCPCS: 36415; 80076; 86704; 86706; 86803; 87340

== ENCOUNTER 2024-12-11 11:01 | Outpatient (AMB) | payer MEDICARE, SELFPAY ==
--- NOTE | 2024-12-11 11:09 | A.OFFVIS_ITS ---
Vital Signs 12/11/24 11:10 Height 5 ft 9 in Weight 185 lb 3.013 oz BMI 27.3 BP 120/76 Blood Pressure Location Lt brachial Position Sitting Pulse 49 L Intake Visit Reasons: 6 mth f/up Intake Note: 6 month follow-up feeling good Allergies No Known Allergies (No Known Allergies*) Allergy (Verified 11/14/24 10:10) Medication List - Last Reconciled 12/11/24 by Robson Boston MD apixaban (Eliquis) 5 mg PO BID atorvastatin 20 mg PO DAILY cholecalciferol (vitamin D3) 25 mcg PO DAILY 3 months dicyclomine 10 mg PO TID PRN gabapentin 100 mg PO BEDTIME 3 months MDD 100 metoprolol tartrate 12.5 mg (1/2 x 25 mg) PO DAILY omeprazole 40 mg PO DAILY terbinafine HCl 250 mg PO DAILY HPI Comments Details: Kristopher comes for follow-up. He has no cardiac symptoms. Denies any shortness of breath, fatigue, lightheadedness. Denies any prolonged palpitation irregular heartbeat. Has started using his CPAP machine. Denies any bleeding issues or neurologic events. [facility] Medical History Onychomycosis Bilateral hand numbness Vision changes Bilateral hand pain Dysphagia IBS (irritable bowel syndrome) Hyperlipidemia BPH (benign prostatic hyperplasia) Paroxysmal atrial fibrillation Surgical History S/P right rotator cuff repair (~07/2024) Hx of transurethral resection of prostate H/O neck surgery Hx of vasectomy Hx of hernia repair History of radiofrequency ablation (RFA) procedure for cardiac arrhythmia Hx of hemorrhoidectomy History of tonsillectomy and adenoidectomy Family History Father Cancer Lung cancer Mother Cancer Lung cancer Paternal Uncle Lung cancer Paternal Aunt Lung cancer Maternal Grandfather Rectal cancer Social History Household Members: Spouse Housing: Other Are you a primary career information specialist to a significant other at home: No Do you presently have visiting nurse or other home services: No Alcohol intake: current Alcohol intake frequency: 0-2 drinks per day Comment: 2 beers a day Patient Tobacco Use Status: Former Tobacco user Tobacco use type: Cigarette Years Smoked: quit 1999 14 years old start 2-3 pack aday marijuana e-Cigarette/Vaping Use: Never Used Second Hand Smoke Exposure: Yes Substance Use Type: Marijuana service: No Current occupational status: retired Current occupation: right hand dominant Cognitive needs: No Hearing needs: No Vision needs: No Review of Systems Const Denies chills, Denies fatigue, Denies fever(s), Denies frequent falls, Denies weakness, Denies weight gain and Denies weight loss ENT Denies dizziness Card Denies chest pain, Denies leg edema, Denies lightheadedness, Denies palpitations, Denies dyspnea, Denies dyspnea on exertion, Denies orthopnea and Denies other (loss of consciousness) Resp Denies cough, Denies dyspnea and Denies dyspnea on exertion GI Denies hematochezia and Denies change in stool character Musc Denies abnormal gait, Denies muscle weakness, Denies numbness, Denies radiating pain into limb and Denies tingling Neuro Denies abnormal gait, Denies dizziness, Denies frequent falls, Denies numbness, Denies tingling and Denies weakness Endo Denies fatigue and Denies palpitations Physical Exam Vital Signs: Last Vital Signs Pulse 49 L 12/11/24 11:10 BP 120/76 12/11/24 11:10 BMI result Body Mass Index 27.3 Const General: cooperative, comfortable, awake and Physically active Nutritional Appearance: thin Orientation/consciousness: patient oriented x3 Limitations: no limitations Neck Neck: Yes trachea midline, Yes supple and Yes no JVD Resp Effort & Inspection: normal respiratory effort Auscultation: clear to auscultation bilaterally Cardio Jugular venous distension: no JVD Palpation: normal PMI Rate: regular rate Rhythm: regular rhythm Heart sounds: S1 normal heart sound present and S2 normal heart sound present GI Auscultation: normal bowel sounds Skin General skin exam: no rashes or lesions noted Neuro General: patient oriented x3 and no focal motor deficits Extrem General: Yes no clubbing, cyanosis or edema Psych Appearance: grossly normal Assessment & Plan Assessment & Plan (1) Paroxysmal atrial fibrillation: Comment: Cardioversion Dr. Boston 1999 Code(s): I48.0 - Paroxysmal atrial fibrillation Category: Medical Plan: Highly symptomatic paroxysmal atrial fibrillation overall currently suppressed on low-dose metoprolol therapy. Avoid antiarrhythmic drug therapy at this point time. Continue full oral anticoagulation, currently on Eliquis 5 mg b.i.d.. Semi annual renal function test should be pursued. Avoidance of stimulants was discussed. Stress mitigation strategies were discussed. (2) Enlarged RV (right ventricle): Code(s): I51.7 - Cardiomegaly Category: Medical Plan: Enlarged right-sided chambers without any obvious cause, probably related to untreated sleep apnea. Continue CPAP therapy. Signs and symptoms of heart failure were discussed. Follow-up echocardiogram in 1 year's time. (3) Sick sinus syndrome: Code(s): I49.5 - Sick sinus syndrome Category: Medical Plan: Sick sinus syndrome without any obvious symptoms. Tolerating low-dose metoprolol therapy at this point time. Continue the same. Avoid other rate lowering medications including eyedrops. No indication for pacing therapy. Follow up in the clinic in 1 year's time, sooner PRN. Thank you for allowing me to partake in his care Orders: Orders CA echo transthoracic complete 1 Year I51.7 - Cardiomegaly Coding Level of Care Code Est Pt Level 4 (91343) Complex EM visit Add On G2211 Diagnoses Paroxysmal atrial fibrillation I48.0 Enlarged RV (right ventricle) I51.7 Sick sinus syndrome I49.5
[2024-12-11 11:10] VITALS: BP 120/76; PULSE 49; BMI 27.3
--- OUTSIDE RECORDS SUMMARY | 2024-12-11 13:47 | XMS_ITS | Patient Health Record ---
Author Organization [facility] Shukri [address] [place] Address [address] [place] [address] Care Team Providers Care Doctor Of Audiology Name Role Phone Sukhdev Eisenberg MD Primary Care Provider Unavail able Romario Beal Unavailable [phone] Reason For Referral No Information Medications Medication [...] Insured Coverage Start Date Coverage End Date [facility] [address] [place] [address] [id number] Kristopher Machado Self - patient is [...]
--- OUTSIDE RECORDS SUMMARY | 2024-12-11 13:47 | XMS_ITS | Clinical Summary ---
Author Organization [facility] Address [address] [place] [address] Phone Care Team Providers Care Behavioral Health Care Coordinator Name Role Phone Robson Boston MD Unavailable [phone] Unknown, Unknown Primary Care Provider Unavai lable [...] this topic Medical Devices Implanted Type Area Octave Board Racker Device Identifier Shelf Expiration Date Model / [...] (06/09/2022 8:45 AM EDT) HDL 76 mg/dL [facility] Comment: Interpretation <40 mg/dL: Low HDL cholesterol (major risk factor for CHD) Greater than or equal to 60 mg/dL: High HDL cholesterol ( negative risk factor for CHD) HDL - cholesterol is affected by a number of factors, e.g. smoking, excerise, hormones, sex and age. CHOLESTEROL 187 0 - 240 mg/dL [facility] TRIGLYCERIDES 121 30 - 160 mg/dL [facility] LDL 87 50 - 129 mg/dL [facility] Comment: LDL levels in terms of risk for coronary heart disease: <100 mg/dL: Optimal 100-129 mg/dL: Near or above optimal 130-159 mg/dL: Borderline high 160-189 mg/dL: High >190 mg/dL: Very High CARDIAC RISK RATIO 2.5(L) 3.4 - 5.0 [facility] Blood 06/09/2022 8:45 AM EDT 06/09/2022 8:50 AM EDT Danya Sorto [facility] BLOOD ORDERABLES F inal Result [facility] [address] [place] [address] * ENDOSCOPY, COLON (11/06/2019 1:34 PM EDT) Narrative Transcriptions Jonathan Retana MD - 11/06/2019 1:34 PM EDT Patient Name: Kristopher Sb Attending MD:: JONATHAN RETANA MD Procedure Date: 11/06/2019 1:34 PM Date of : 1955 Age: 63 Admit Type: Outpatient Gender: Male Room: [place] [address] Referring MD: Danya Sorto Exam Type: Colonoscopy [...] monitored continuously. The Olympus adult variable colonoscope [id number] #1was introduced through the anus and advanced [...] 1:34 PM Procedure Code(s): --- Professional --- 71400, Colonoscopy, flexible; diagnostic, including collection of specimen(s) by brushing or washing, when performed (separateprocedure) --- Technical --- 96051, Colonoscopy, flexible; diagnostic, including collection of specimen(s) [...] or abscess without bleeding CPT copyright 2018 [employer]. All rights reserved. The codes documented in this report are preliminary and upon bag loader reviewmay be revised to meet current compliance requirements. Procedure Date: 11/06/2019 1:34:07 PM [address] [place] [address] Danya Sorto CNP GI PROCEDURE ORDERABLE S Edited Result - Final from Last 3 Months or Most Recently Relevant to Health Maintenance Insurance MEDICARE PART A & B [facility] MEDICARE REPLACEMENT MEDICARE PART A & B Member Subscriber Plan / Payer (Ef fective 2018-Present) Name:Kristopher Basurto Member ID:[id number] Relation to Subscriber:Self Name:Kristopher Basurto Subscriber ID:[id number] Payer ID:[id number] Group ID:Not on file Type:Medicare Address: [place] [address] MEDICARE REPLACEMENT MEDICARE PART A & B Member Subscriber Plan / Payer (Ef fective 2018-) Name:Kristopher Basurto Member ID:[id number] Relation to Subscriber:Self Name:Kristopehr Basurto Subscriber ID:[id number] Payer ID:[id number] Group ID:Not on file Type:Medicare Address: [place] [address] MEDICARE REPLACEMENT MEDICARE PART A & B MEDICARE REPLACEMENT MEDICARE PART A & B MEDICARE REPLACEMENT MEDICARE PART A & B MEDICARE REPLACEMENT MEDICARE PART A & B Member Subscriber Plan / Payer (Ef fective 2018-Present) Name:Kristopher Basurto Member ID:[id number] Relation to Subscriber:Self Name:Kristopher Basurto Subscriber ID:[id number] Payer ID:[id number] Group ID:Not on file Type:Medicare Address: [place] [address] MEDICARE REPLACEMENT MEDICARE PART A & B MEDICARE REPLACEMENT MEDICARE PART A & B [employer] P[employer] MEDICARE REPLACEMENT Care Teams Behavioral Health Care Coordinator Relationship Specialty Start Date End Date Unknown, Unknown, MD PCP - General 01/11/23 Robson Boston MD [address] [place] [address] [address] [place] [address] Cardiology 09/09/19 Additional Source Comments The information contained in this document represents components of the legal health record. It is not the complete legal health record.[facility]
--- OUTSIDE RECORDS SUMMARY | 2024-12-11 13:47 | XMS_ITS | Encounter Summary ---
Author Organization [facility] Address [address] [address] [address] [place] [address] Phone Care Team Providers Care Licensing Engineer Name Role Phone Danya Sorto CNP Primary Care Provider Robson Boston MD Unavailable [phone] Danya Sorto CNP Primary Care Provider Unknown, Unknown Primary Care Provider Sydni arevalo Encounter Details Date Type Department Care Team (Late st Contact Info) Description 11/06/2019 Procedure Pass [facility] Endoscopy Admitting Dept Virtual Department [address] [place] [address] [id number] Social History Tobacco Use Types Packs/Day Years [...] documented as of this encounter Care Teams Licensing Engineer Relationship Specialty Start Date End Date Danya Sorto CNP [address] [place] [address] [email or web address] PCP - General Internal Medicine 08/12/19 03/24/20 Danya Sorto CNP [address] [place] [address] [email or web address] PCP - General Internal Medicine 03/25/20 01/10/23 Unknown, Unknown, MD PCP - General 01/11/23 Robson Boston MD [address] [place] [address] [place] [address] Cardiology 09/09/19 documented as of this encounter Additional Source Comments The information contained in this document represents components of the legal health record. It is not the complete legal health record.[facility]
--- OUTSIDE RECORDS SUMMARY | 2024-12-11 13:47 | XMS_ITS | Patient Health Record ---
Author Organization [facility] Address [address] [place] [address] Support Name Relationship Address Phone OLE [place] [...] Insured Coverage Start Date Coverage End Date [facility] [address] [address] [place] [address] [phone] [id number] OLE WILKINS Self - patient is the insured
== END 2024-12-11 11:29 | disposition home or self-care (01) ==
LOC: HO.HCS 11:02
PROVIDERS: PCP Internal Medicine; Visit Provider Internal Medicine Cardiovascular Disease
DX: I48.0 Paroxysmal atrial fibrillation (principal); I51.7 Cardiomegaly; I49.5 Sick sinus syndrome
CPT/HCPCS: 99214; G2211

== ENCOUNTER → 2024-12-11 11:01 | Outpatient (BNVA) | payer MEDICARE, SELFPAY | PROVIDERS: PCP Internal Medicine; Visit Provider Internal Medicine Cardiovascular Disease | DX: I48.0 Paroxysmal atrial fibrillation (principal); I51.7 Cardiomegaly; I49.5 Sick sinus syndrome | CPT/HCPCS: 99212 ==

== ENCOUNTER 2024-12-30 11:43 | Outpatient (AMB) | payer MEDICARE, SELFPAY ==
[2024-12-30 11:47] VITALS: BP 134/84; PULSE 51; TEMP 36.2; O2SAT 98; BMI 26.6
--- NOTE | 2024-12-30 11:47 | A.OFFPC_ITS ---
Vital Signs 12/30/24 11:47 Height 5 ft 9 in Weight 180 lb 6 oz BMI 26.6 BP 134/84 Blood Pressure Location Lt brachial Position Sitting Pulse 51 Pulse Source Pulse Oximeter Temp 97.1 F Temp Source Temporal Artery Scan Pulse Oximetry (%) 98 Oxygen Delivery Method Room Air Intake Visit Reasons: PAF Allergies No Known Allergies (No Known Allergies*) Allergy (Verified 12/30/24 11:47) Tobacco use date assessed: 12/30/24 Fall risk assessment: No Falls in past year Last assessed Fall Risk: 12/30/24 Dental Screening Dental Screen Date: 12/30/24 Did you have a dental visit in the last 12 months?: Yes Did you have a dental problem in the last 6 months where you did not have access to dental care?: No Was dental information given to patient?: Patient has dentist HPI HPI Comments History of Present Illness Details History of Present Illness The patient is a 69-year-old male presenting for a follow-up visit. He has a history of a 5-pound weight loss, atrial fibrillation, BPH, hypercholeste rolemia, gastritis, sick sinus syndrome, and mild obstructive sleep apnea. His cardiac history includes an ascending aorta dilatation measuring 3.8 cm, noted last year. A cardiac MRI in March 2024 showed an ejection fraction of 59%, a mildly dilated right ventricular chamber, a moderately dilated right atrium, and a mildly dilated left atrium, with no evidence of myocardial infarction, fibrosis, myocarditis, or cardiomyopathy. He is managed on low-dose metoprolol and Eliquis 5 mg twice a day, with biannual renal function testing recommended by cardiology. Orthopedically, the patient underwent a right arthroscopic rotator cuff repair of the supraspinatus with extensive debridement and subacromial decompression with partial acromioplasty in July 2024. He still experiences soreness in the shoulder. He recently developed numbness down his right arm over the last three weeks, which occurs when he turns his head to the right and looks down. The patient also had a carpal tunnel procedure on his wrist one week ago. His gastrointestinal history includes Altamirano's esophagus, diagnosed via endoscopy in 2023, and a colonoscopy in 2020. Recent blood work from November 21, 2024, showed a transient elevation in liver enzymes, which have since normalized on repeat testing; a hepatitis panel was negative. He has an ultrasound of the liver scheduled for February. Recent lab work also revealed hypertriglyceridemia with a triglyceride level of 295 mg/dL, though his LDL cholesterol is well-controlled at 67 mg/dL on atorvastatin 20 mg. He follows up with neurology for his sleep apnea and uses a CPAP machine. Health Maintenance The patient received an influenza vaccine today. He remains up to date on other immunizations but declines the COVID-19 vaccine at this time. Social History - Diet: Patient reports eating some butt er and processed foods such as pork cuts. - Substance use: Reports he has not cons umed alcohol in over a month. - Activity: The patient tries to stay ac tive but reports recent issues have slowed him down. Results - Labs (November 21, 2024): Normal electr olytes, stable renal function, and normal blood sugar. - Liver Enzymes (November 2024): Initiall y elevated with one value at 54, but normalized on repeat testing. - Hepatitis Profile: Negative. - Lipid Panel (November 21, 2024): Trigly cerides were 295 mg/dL; LDL cholesterol was 67 mg/dL. - CBC (July 2024): Normal. - Thyroid (July 2024): Normal. - Cardiac MRI (March 2024): EF of 59% ; mildly dilated RV chamber; moderately dilated right atrium; mildly dilated left atrium; no evidence of myocardial infarction, fibrosis, myocarditis, infiltrative or hypertrophic cardiomyopathy. [facility] Medical History (Updated 12/30/24 @ 12:06 by Tal Cuellar MD) Onychomycosis Bilateral hand numbness Vision changes Bilateral hand pain Dysphagia IBS (irritable bowel syndrome) Hyperlipidemia BPH (benign prostatic hyperplasia) Paroxysmal atrial fibrillation Surgical History (Updated 12/30/24 @ 11:50 by Shena Huerta CMA) History of carpal tunnel surgery of right wrist S/P right rotator cuff repair (~07/2024) Hx of transurethral resection of prostate H/O neck surgery Hx of vasectomy Hx of hernia repair History of radiofrequency ablation (RFA) procedure for cardiac arrhythmia Hx of hemorrhoidectomy History of tonsillectomy and adenoidectomy Family History Father Cancer Lung cancer Mother Cancer Lung cancer Paternal Uncle Lung cancer Paternal Aunt Lung cancer Maternal Grandfather Rectal cancer Social History Household Members: Spouse Housing: Other Are you a primary urgent care to a significant other at home: No Do you presently have visiting nurse or other home services: No Alcohol intake: current Alcohol intake frequency: 0-2 drinks per day Comment: 2 beers a day Patient Tobacco Use Status: Former Tobacco user Tobacco use type: Cigarette Years Smoked: quit 1999 14 years old start 2-3 pack aday marijuana e-Cigarette/Vaping Use: Never Used Second Hand Smoke Exposure: Yes Substance Use Type: Marijuana service: No Current occupational status: retired Current occupation: right hand dominant Cognitive needs: No Hearing needs: No Vision needs: No Questionnaire PHQ-9 Over the last 2 weeks, how often have you been bothered by any of the following problems? 1. Little interest or pleasure in doing things: not at all 2. Feeling down, depressed, or hopeless: not at all 3. Trouble falling or staying asleep, or sleeping too much: not at all 4. Feeling tired or having little energy: not at all 5. Poor appetite or overeating: not at all 6. Feeling bad about yourself - or that you are a failure or have let yourself or your family down: not at all 7. Trouble concentrating on things, such as reading the newspaper or watching television: not at all 8. Moving or speaking so slowly that other people could have noticed. Or the opposite - being so fidgety or restless that you have been moving around a lot more than usual: not at all 9. Thoughts that you would be better off or of hurting yourself in some way: not at all Total score: 0 Depression Screening Interpretation: Negative Depression Screening Done: Yes Source: Developed by Drs. Sukhdev Jama, Yolie Hopson, Rafy Dc and colleagues, with an educational mario from [employer]. Thrive Questionnaire Date Thrive assessed: 08/01/24 I am a: Patient What is your living situation today?: I have a steady place to live Within the past 12 months, did the food you bought not last and you didn't have the money to get more?: Never true Within the past 12 months, did you worry whether your food would run out before you got money to buy more?: Never true Do you have trouble paying for medicines?: No Do you have trouble getting transportation to medical appointments?: No Do you have trouble paying your heating and electricity bill?: No Do you have trouble taking care of your child, family member or friend?: No Do you have trouble with day-to-day activities such as bathing, preparing meals, shopping, managing finances, etc.?: No Are you currently unemployed and looking for a job?: No Are you interested in more education?: No Please select the resources that you would like help with: None Currently or been in a relationship where the following occur: No concerns reported THRIVE Score: 0 AUDIT C Alcohol Use Questionnaire (AUDIT-C) 1. How often do you have a drink containing alcohol?: 2-4 times a month 2. How many drinks containing alcohol do you have on a typical day when you are drinking?: 3 or 4 3. How often do you have six or more drinks on one occasion?: Weekly Total Score: 6 SRIRAM-7 AMB Questionnaire SRIRAM-7 Date SRIRAM - 7 assessed: 08/01/24 Feeling nervous, anxious, or on edge: 3 = Nearly every day Not being able to stop or control worryin = Not at all Worrying too much about different things: 0 = Not at all Trouble relaxin = Not at all Being so restless that it is hard to sit still: 0 = Not at all Becoming easily annoyed or irritable: 0 = Not at all Feeling afraid as if something awful might happen: 0 = Not at all Total SRIRAM-7 score (0-4 normal; 5-9 mild; 10-14 moderate; 15-21 severe): 3 Source: Developed by Drs. Sukhdev Jama, Yolie Hopson, Rafy Dc and colleagues, with an educational mario from [employer]. Review of Systems Narrative Review of Systems - Constitutional: Reports a 5-pound weight loss. - Musculoskeletal: Reports the right shoulder is still sore following surgery. - Neurological: Reports numbness that radiates down his entire right arm to the wrist when turning his head to the right and looking down, which has been occurring for about three weeks. - Denies syncope or feeling like passing out. Physical exam (Primary Care) Vital Signs: Last Vital Signs Temp 97.1 F 12/30/24 11:47 Pulse 51 12/30/24 11:47 BP 134/84 11/18/25 11:47 Pulse Ox 98 12/30/24 11:47 Oxygen Delivery Method Room Air 12/30/24 11:47 BMI result Body Mass Index 26.6 Tobacco/Smoking Status: Tobacco use Status Tobacco use date assessed 12/30/24 12/30/24 11:51 Patient Tobacco Use Status Former Tobacco user 12/30/24 11:51 Tobacco use type Cigarette 12/30/24 11:51 e-Cigarette/Vaping Use Never Used 12/30/24 11:51 PHQ-9: PHQ-9 Score PHQ-9: Total score 0 12/30/24 12:29 Depression Screening Interpretation: Negative Thrive Assessment: Date of Thrive Assessment Date Thrive assessed 08/01/24 12/30/24 11:51 Currently or been in a relationship where the following occur: No concerns reported Narrative Physical Exam - Integumentary: A cut is noted on the face. - Respiratory: Lungs are clear on auscultation. Const General: alert; No acute distress Eyes Conjunctivae: conjunctivae normal Resp Auscultation: clear to auscultation bilaterally Cardio Rate: regular rate Rhythm: regular rhythm GI Inspection: Yes normal to inspection Extrem General: Yes normal to inspection and No edema Office Procedures Flu Questionnaire Does the patient have a severe egg allergy?: No Does the patient have severe life threatening allergies?: No Does the patient have a fever or illness today?: No Has the patient ever had Guillain-Norman Syndrome?: No Has the patient ever had any past reaction to a flu shot?: No Immunizations Fluarix 3791-9831 (PF) 45 mcg (15 mcg x 3)/0.5 mL IM syringe Performing Provider: Tal Cuellar MD [facility] Administered by: Lakesha Bliss CMA on 12/30/24 12:29 Dose Route Admin Location Dispensed Lot Number Expiration Date [facility] [place]NOTE 2] [employer] 0.5 mL IM Left Deltoid 0.5 mL [id number] 08/11/25 97253-831-50 [employer] VIS Given Date VIS Provided VIS Publication Date 12/30/24 Single Vaccine 24 Eligibility Eligibility Date Funding Source Not [facility] Eligible 12/30/24 Private Coding Level of Care Code Est Pt Level 4 (13623) Complex EM visit Add On G2211 Diagnoses Paroxysmal atrial fibrillation I48.0 Hypercholesterolemia E78.00 Erosive gastritis K29.60 BPH w urinary obs/LUTS N40.1; N13.8 S/P arthroscopy of right shoulder Z98.890 NICHOLAS (obstructive sleep apnea) G47.33 LFT elevation R79.89 Carpal tunnel syndrome of right wrist G56.01 Cervical radicular pain M54.12 Assessment & Plan Assessment & Plan (1) Paroxysmal atrial fibrillation: Comment: Cardioversion Dr. Boston 1999 Code(s): I48.0 - Paroxysmal atrial fibrillation Category: Medical Plan: Continue to follow-up with cardiology on metoprolol and anticoagulation. Twice a day year blood work November was the last time. Will request in 6 months (2) Hypercholesterolemia: Code(s): E78.00 - Pure hypercholesterolemia, unspecified Category: Medical Plan: Avoid fried foods, chicken skin, eggs, butter margarine, pastries and meat. Be it pork or beef they have a lot of cholesterol LDL goal of less than 100 and triglyceride of less than 150. Patient on atorvastatin 20 mg once a day only (3) Erosive gastritis: Code(s): K29.60 - Other gastritis without bleeding Category: Medical Plan: Avoid the foods that causes that usually spicy foods, tomato products, juices, coffee, soda and foods that your sensitive to. After eating do not lie down, allow 3-4 hours before in lie down. And keep the head of bed above 30 degrees to avoid the acid from going up. (4) BPH w urinary obs/LUTS: Comment: TURP 2022 [place] Code(s): N40.1 - Benign prostatic hyperplasia with lower urinary tract symptoms; N13.8 - Other obstructive and reflux uropathy Category: Medical Plan: Stable (5) S/P arthroscopy of right shoulder: Comment: Right shoulder ARCR SAD DCE biceps tenodesis versus tenotomy 07/23/2024 Dr. Fair right shoulder arthroscopy with subacromial decompression and partial acromioplasty and rotator cuff repair Code(s): Z98.890 - Other specified postprocedural states Category: Surgical Plan: Continue to follow up with orthopedics continue with exercises (6) NICHOLAS (obstructive sleep apnea): Comment: mild AHI is 6.7 o2 nadirs to 83% Code(s): G47.33 - Obstructive sleep apnea (adult) (pediatric) Category: Medical Plan: Patient was seen by Neurology and has been prescribed a CPAP (7) LFT elevation: Code(s): R79.89 - Other specified abnormal findings of blood chemistry Category: Medical Plan: Advised to get the ultrasound done (8) Carpal tunnel syndrome of right wrist: Comment: 02/2019 R wrist surgery DEONDRE 12/2024 Code(s): G56.01 - Carpal tunnel syndrome, right upper limb Category: Medical (9) Cervical radicular pain: Code(s): M54.12 - Radiculopathy, cervical region Category: Medical Plan Plan Patient was informed and verbally consented to the use of an ambient scribe for clinic note documentation during this visit. 1. Hyperlipidemia The patient is on atorvastatin 20 mg once a day, with a goal LDL less than 100 and triglycerides less than 150. Recent labs showed a triglyceride level of 295 mg/dL. We discussed dietary modifications to address the elevated triglycerides. The plan is to retest the cholesterol panel in about six months, and if the triglyceride level remains high, we will consider adding another medication. 2. Cervicalgia With Radiculopathy The patient reports new onset right arm numbness when turning his head, concerning for a cervical spine issue. An X-ray of the cervical spine will be ordered to investigate. The patient has an upcoming appointment with orthopedics in February to discuss this and his ongoing shoulder issues. 3. Atrial Fibrillation And Cardiac Monitoring The patient will continue to follow up with cardiology. He will continue his current regimen of metoprolol and Eliquis. Cardiology recommends an echocardiogram in one year and biannual blood work for renal function. 4. Right Shoulder Pain The patient continues to have soreness in his right shoulder post-operatively. He is advised to continue with exercises and will follow up with orthopedics. 5. Obstructive Sleep Apnea The patient is prescribed a CPAP machine by neurology and reports using it. Continued CPAP therapy is recommended by cardiology due to enlarged right-sided heart chambers. 6. Elevated Liver Enzymes Transient elevation of liver enzymes was noted, which has since resolved. The patient has been advised to get a liver ultrasound, which is scheduled for . 7. Gastroesophageal Reflux Disease The patient's reflux is noted to be stable. Discussion Notes I reviewed the patient's recent lab work from November. I noted his electrolytes and kidney function are good, and his blood sugar is normal. I informed him that while one of his liver enzymes was elevated, it came down on repeat testing, and a hepatitis screen was negative. I explained we still want to get a liver ultrasound, scheduled for February, to be thorough. I expressed concern about his high triglyceride level of 295, even though his LDL cholesterol is well-controlled at 67 on atorvastatin. We discussed that triglycerides are affected by diet, and I advised him to reduce his intake of fried foods, processed meats, and butter. I told him we will retest his cholesterol in about five months and will consider an additional medication if the level remains high. Regarding his new symptom of his arm going numb, I explained that it could be related to his neck. I am ordering an X-ray of his cervical spine and advised him to follow up with his orthopedist in February. We reviewed the cardiology notes, which recommend continued use of his CPAP for sleep apnea to address pressure on the right side of the heart, and another echocardiogram in a year. I confirmed he is up-to-date on his immunizations and we administered a flu shot today. Patient Instructions - Continue taking all your medications as prescribed, including metoprolol, Eliquis, and atorvastatin. - Please get a neck X-ray, which has been ordered for you and can be done at any time. - Keep your scheduled appointment for a liver ultrasound in February. - Improve your diet by limiting fried foods, fast foods, processed meats (like pork), and butter to help lower your triglycerides. - We will recheck your cholesterol with blood work in about 6 months. - Continue to use your CPAP machine for sleep apnea. - Continue with your shoulder exercises and follow up with your target protection specialist in February. - You received a flu shot today. Orders: Orders Complete Blood Count Auto Diff 6 Months I48.0 - Paroxysmal atrial fibrillation Lipid Panel 6 Months E78.00 - Pure hypercholesterolemia, unspecified, I48.0 - Paroxysmal atrial fibrillation XR cervical spine 2V Today M54.12 - Radiculopathy, cervical region Comprehensive Met. Panel 6 Months I48.0 - Paroxysmal atrial fibrillation Free T4 (Free Thyroxine) 6 Months I48.0 - Paroxysmal atrial fibrillation Thyroid Stimulating Hormone 6 Months I48.0 - Paroxysmal atrial fibrillation UA CC w/rflx Micro + Cult 6 Months I48.0 - Paroxysmal atrial fibrillation, R30.0 - Dysuria Vitamin B12 and Folate 6 Months I48.0 - Paroxysmal atrial fibrillation Prostate Specific Antigen Scr 6 Months I48.0 - Paroxysmal atrial fibrillation Influenza 0213-1228 Immunization Today Z23 - Encounter for immunization
== END 2024-12-30 12:34 | disposition home or self-care (01) ==
LOC: HO.HMCH 11:44
PROVIDERS: PCP Internal Medicine; Visit Provider Internal Medicine
DX: I48.0 Paroxysmal atrial fibrillation (principal); E78.00 Pure hypercholesterolemia, unspecified; K29.60 Other gastritis without bleeding; N40.1 Benign prostatic hyperplasia with lower urinary tract symptoms; N13.8 Other obstructive and reflux uropathy; Z98.890 Other specified postprocedural states; G47.33 Obstructive sleep apnea (adult) (pediatric); R79.89 Other specified abnormal findings of blood chemistry; G56.01 Carpal tunnel syndrome, right upper limb; M54.12 Radiculopathy, cervical region; Z23 Encounter for immunization

== ENCOUNTER → 2024-12-30 11:43 | Outpatient (BNVA) | payer MEDICARE, SELFPAY | PROVIDERS: PCP Internal Medicine; Visit Provider Internal Medicine | DX: K22.70 Barrett's esophagus without dysplasia (principal); E78.1 Pure hyperglyceridemia; I48.0 Paroxysmal atrial fibrillation; E78.00 Pure hypercholesterolemia, unspecified; N40.1 Benign prostatic hyperplasia with lower urinary tract symptoms; N13.8 Other obstructive and reflux uropathy; K29.60 Other gastritis without bleeding; G47.33 Obstructive sleep apnea (adult) (pediatric); R79.89 Other specified abnormal findings of blood chemistry; G56.01 Carpal tunnel syndrome, right upper limb; M54.12 Radiculopathy, cervical region; M25.511 Pain in right shoulder; R74.8 Abnormal levels of other serum enzymes; K21.9 Gastro-esophageal reflux disease without esophagitis; Z23 Encounter for immunization; Z79.01 Long term (current) use of anticoagulants; Z98.890 Other specified postprocedural states; Z79.899 Other long term (current) drug therapy | CPT/HCPCS: 90471; 90656; 96127; 99212 ==

== ENCOUNTER 2025-01-01 10:34 | Outpatient (REF) | payer MEDICARE, OTHER, SELFPAY ==
--- NOTE | ~2025-01-01 | XR_ITS ---
EXAMINATION: XR CERVICAL SPINE CLINICAL INFORMATION: M54.12 - Radiculopathy, cervical region COMPARISON: Correlated to MRI dated June 03, 2020. TECHNIQUE: AP, lateral and atlantoodontoid views. FINDINGS: Rashida cervical junction is intact. There is an intact metallic plate placed anteriorly and anchor with screws at C5-6 resulting in arthrodesis and mild kyphotic deformity. There is a grade 1 anterolisthesis C4-5. No acute cortical disruption. No lytic or blastic lesions. XR/XR cervical spine 3V IMPRESSION: Status post anterior cervical fusion/arthrodesis, C5-6. Grade 1 anterolisthesis C4-5. Electronically signed by: Neo Chinchilla MD 01/01/2025 11:40 AM SADE
== END 2025-01-01 10:35 | disposition home or self-care (01) ==
LOC: HO.XRAY 10:34
PROVIDERS: PCP Internal Medicine; Visit Provider Internal Medicine
DX: M54.12 Radiculopathy, cervical region (principal)
CPT/HCPCS: 72040

== ENCOUNTER → 2025-01-01 10:41 | Outpatient (BNV) | payer MEDICARE, OTHER, SELFPAY | PROVIDERS: PCP Internal Medicine; Visit Provider Radiology Diagnostic Radiology | DX: M54.12 Radiculopathy, cervical region (principal); Z98.1 Arthrodesis status | CPT/HCPCS: 72040 ==

== ENCOUNTER 2025-01-14 08:44 | Outpatient (REF) | payer MEDICARE, OTHER, SELFPAY ==
--- OUTSIDE RECORDS SUMMARY | 2025-01-14 09:02 | XMS_ITS | Encounter Summary ---
Author Organization [facility] Address [address] [place] [address] Phone Care Team Providers Care Labeling Specialist Name Role Phone Dnaya Sorto CNP Primary Care Provider Robson [place] MD Unavailable [phone] Danya Sorto CNP Primary Care Provider Unknown, Unknown Primary Care Provider Sydni arevalo Encounter Details Date Type Department Care Team (Late st Contact Info) Description 11/06/2019 Procedure Pass [facility] Endoscopy Admitting Dept Virtual Department [address] [place] [address] [phone] Social History Tobacco Use Types Packs/Day Years [...] documented as of this encounter Care Teams Labeling Specialist Relationship Specialty Start Date End Date Danya Sorto CNP [address] [place] [address] [email or web address] PCP - General Internal Medicine 08/12/19 03/24/20 Danya Sorto CNP [address] [place] [address] [email or web address] PCP - General Internal Medicine 03/25/20 01/10/23 Unknown, Unknown, MD PCP - General 01/11/23 Robson Boston MD [address] [place] [address] [place] [id number] Cardiology 09/09/19 documented as of this encounter Additional Source Comments The information contained in this document represents components of the legal health record. It is not the complete legal health record.[facility]
--- OUTSIDE RECORDS SUMMARY | 2025-01-14 09:02 | XMS_ITS | Clinical Summary ---
Author Organization [facility] Address [address] [place] [address] Phone Care Team Providers Care Poultry Packer Name Role Phone Robson [place] MD Unavailable [phone] Unknown, Unknown Primary Care Provider Unavai lable [...] this topic Medical Devices Implanted Type Area Checker Dump Grounds Device Identifier Shelf Expiration Date Model / [...] (06/09/2022 8:45 AM EDT) HDL 76 mg/dL [facility] Comment: Interpretation <40 mg/dL: Low HDL cholesterol (major risk factor for CHD) Greater than or equal to 60 mg/dL: High HDL cholesterol ( negative risk factor for CHD) HDL - cholesterol is affected by a number of factors, e.g. smoking, excerise, hormones, sex and age. CHOLESTEROL 187 0 - 240 mg/dL [facility] TRIGLYCERIDES 121 30 - 160 mg/dL [facility] LDL 87 50 - 129 mg/dL [facility] Comment: LDL levels in terms of risk for coronary heart disease: <100 mg/dL: Optimal 100-129 mg/dL: Near or above optimal 130-159 mg/dL: Borderline high 160-189 mg/dL: High >190 mg/dL: Very High CARDIAC RISK RATIO 2.5(L) 3.4 - 5.0 [facility] Blood 06/09/2022 8:45 AM EDT 06/09/2022 8:50 AM EDT Danya Sorto [facility] BLOOD BKR ORDERABL ES Final Result [facility] [address] [place] [address] * ENDOSCOPY, COLON (11/06/2019 1:34 PM EDT) Narrative Transcriptions Jonathan Retana MD - 11/06/2019 1:34 PM EDT Patient Name: Kristopher Basurto Attending MD:: JONATHAN RETANA MD Procedure Date: 11/06/2019 1:34 PM Date of : 1955 Age: 63 Admit Type: Outpatient Gender: Male Room: [place] [address] Referring MD: Danya Sorto Exam Type: Colonoscopy [...] monitored continuously. The Olympus adult variable colonoscope [id number] #1was introduced through the anus and advanced [...] 1:34 PM Procedure Code(s): --- Professional --- 21091, Colonoscopy, flexible; diagnostic, including collection of specimen(s) by brushing or washing, when performed (separateprocedure) --- Technical --- 38142, Colonoscopy, flexible; diagnostic, including collection of specimen(s) [...] or abscess without bleeding CPT copyright 2018 [employer]. All rights reserved. The codes documented in this report are preliminary and upon hvac technician reviewmay be revised to meet current compliance requirements. Procedure Date: 11/06/2019 1:34:07 PM [address] [place] [address] Danya Sorto CNP GI PROCEDURE ORDERABLE S Edited Result - Final from Last 3 Months or Most Recently Relevant to Health Maintenance Insurance MEDICARE PART A & B [facility] MEDICARE REPLACEMENT MEDICARE PART A & B [facility] MEDICARE REPLACEMENT MEDICARE PART A & B Member Subscriber Plan / Payer (Ef fective 2018-) Name:Kristopher Basurto Member ID:[id number] Relation to Subscriber:Self Name:Kristopher Basurto Subscriber ID:[id number] Payer ID:[id number] Group ID:Not on file Type:Medicare Address: [address] [place] [id number] [facility] MEDICARE REPLACEMENT MEDICARE PART A & B MEDICARE REPLACEMENT MEDICARE PART A & B MEDICARE REPLACEMENT MEDICARE PART A & B MEDICARE REPLACEMENT MEDICARE PART A & [place] [address] [place] [address] MEDICARE REPLACEMENT MEDICARE PART A & B MEDICARE REPLACEMENT MEDICARE PART A & B MEDICARE REPLACEMENT Care Teams Poultry Packer Relationship Specialty Start Date End Date Unknown, Unknown, MD PCP - General 01/11/23 Robson Boston MD [address] [place] [address] [address] [place] [address] Cardiology 09/09/19 Additional Source Comments The information contained in this document represents components of the legal health record. It is not the complete legal health record.[facility]
== END 2025-01-14 08:45 | disposition home or self-care (01) ==
LOC: HO.HMGCX 08:44
PROVIDERS: PCP Internal Medicine; Visit Provider Internal Medicine
DX: R79.89 Other specified abnormal findings of blood chemistry (principal)
CPT/HCPCS: 76700

== ENCOUNTER → 2025-01-14 08:47 | Outpatient (BNV) | payer MEDICARE, OTHER, SELFPAY | PROVIDERS: PCP Internal Medicine; Visit Provider Radiology Vascular & Interventional Radiology | DX: R16.0 Hepatomegaly, not elsewhere classified (principal); K76.0 Fatty (change of) liver, not elsewhere classified | CPT/HCPCS: 76700 ==